=== PATIENT | male | born 1955 | race Caucasian/White ===

== ENCOUNTER 2018-03-27 10:33 | Inpatient (IN) | payer OTHER, SELFPAY ==
[2018-03-27] VITALS (60 sets, daily range): BP systolic 77–120; BP diastolic 43–74; PULSE 61–98; RESP 12–25; TEMP 36.5–37.1; O2SAT 90–96
--- NOTE | 2018-03-27 10:46 | ED.FU ---
- Continuation of Care Continuation of Care Plan: I saw the ekg, shows sinus rhythm, normal axis and intervals, no acute ischemic changes compared to old ekg
--- NOTE | 2018-03-27 11:05 | ED.GENADUL ---
Medical Decision Making When compared to previous EKG there are: no significant change (EKG reviewed by Dr. Menard. Normal sinus rhythm with a rate of 80. Refer to his note. He did review previous EKG and did not note acute abnormality to suggest ischemia.) - Radiology Data Radiology results: report reviewed - Medical Decision Making Patient presents today with chief complaint of shortness of breath. He is concerned this may be cardiac etiology. Patient reports he has been feeling poorly for the past 2 years but over the past month he has not been able unable to get out of bed secondary to shortness of breath, dizziness. Positive orthostatics and hypoxia while at his primary care office today. Family history of leukemia and colon cancer. Patient has had regular colonoscopy, reports most recent was in the past few years at [facility]. EKG was without remarkable findings. Patient's oxygen is 91%. Is not tachycardic. Slightly hypotensive. No work of breathing. Lungs are clear on exam. Heart sounds. Abdomen soft nontender. Is unable to obtain enough stool sample to perform guaiac testing. Primary care had ordered laboratory workup which patient did proceed with prior to being evaluated in the emergency department. This is significant for leukocytosis of 17.8, hemoglobin of 11.1 down from 15.6, hematocrit of 35.2. Platelets were 602 this is up from 316. INR has not been checked in over a month, last checked was 02/13/2018 at which time was 2.5. Had an additional evaluation including d-dimer, troponin, magnesium, TSH. And concern for possible pulmonary embolism given his presenting symptoms. We will also evaluate for possible cardiac etiology. His weight loss and fatigue is also concerning for possible cancerous etiology. Will obtain a CTA to evaluate for possible PE or lung pathology. Discussed plan with the patient and he voiced understanding and is agreement with the plan. Patient's INR is 4.1. PTT 48.1. Troponin <0.02. D-dimer 1276. Patient going for CTA chest. Stool sample was collected, heme negative per nursing staff. Liquid pale stool, foul smelling. Given 2-3 weeks of diarrhea, appearance and leukocytosis, will send this for testing. Spoke with radiologist regarding chest CT. She advised that the CT was significant for bilateral upper lobe infiltrates as well as infiltrate to the right lower lobe. Reported this is consistent with pneumonia versus inflammatory process. Also noted fibrotic changes and emphysema. I did discuss my concern for possible cancerous etiology but she did not see any evidence of this at this point, however she did report that there may be something in the area that is infiltrated. This would need to be reassessed once infiltrates of cleared. Discussed findings with the patient and his . Patient's history and appearance are concerning at this point. Thus far, the patient has leukocytosis, no anemia, high platelets, positive d-dimer, negative troponin, findings suggestive of pneumonia. Patient has lost 20 pounds in the past month. Is short of breath and hypoxic at 90-91%. Placed him on 1 L of O2 via nasal cannula. Will consult with hospitalist regarding admission. Patient will be given IV ceftriaxone and azithromycin for pneumonia. Prior to beginning IV antibiotics with cultures were obtained. Consulted with Dr. Rivers regarding admission. He agrees and has replaced holding orders. Discussed this plan with the patient who agrees to admission for continued treatment and evaluation. History of Present Illness - General Chief complaint: GenMedical Stated complaint: PER DR SOL ? HEART ATTACK Time Seen by Provider: 03/27/18 10:39 Source: patient, family, RN notes reviewed Mode of arrival: ambulatory Limitations: no limitations - History of Present Illness Initial comments: Patient 63-year-old male presenting today with chief complaint of shortness of breath. He is accompanied by his . Patient reports that his symptoms have progressively been increasing over the past month. He does report that he has been feeling unwell for the past 2 years with a shortness of breath and fatigue for the past month. His reports that he has been remaining in bed for the past month secondary to shortness of breath and dizziness when standing. States that he has been immensely fatigued. He and his report that he is typically active for only 2 hours per day secondary to this fatigue. States that he has had a 20 pound weight loss over the past month. Has had a diminished appetite. Has intermittent, sharp discomfort in the lateral aspect of his chest with movement. Is denying any chest discomfort or chest tightness at this point. Has been feeling short of breath. Patient has history of atrial fibrillation, Oviedo's esophagus, migraines, colitis, hypertension. Patiennt is anticoagulated on Warfarin. Surgical history pertinent for cholecystectomy and cardiac ablation. Patient was seen by his hydrographical technical officer on 03/19/2018 at which time he was discussing this with them. Diagnosed with paroxysmal atrial fibrillation. They question of his shortness of breath may have been related to his A. fib. Patient more Holter monitor was initial interpretation significant for atrial fib, flutter over 64.5% of total monitoring time. Occasional PVCs. No ventricular tachycardia. Patient was seen by his primary care physician this morning who noted him to be hypoxic in the high 80s and vital signs significant for orthostatic hypotension. - Related Data Diphenhydramine HCl [Benadryl] 50 mg PO HS tab-cap 03/01/13 SUMAtriptan [Imitrex] 50 mg PO PRN 03/01/13 Lisinopril 10 mg PO QAM 03/26/15 Sertraline [Zoloft] 150 mg PO QAM 03/26/15 Dronedarone [Multaq] 400 mg PO BID 05/25/15 Metoprolol Succinate 50 mg PO DAILY tab-cap 03/19/18 Pantoprazole Sodium 40 mg PO DAILY tab-cap 03/19/18 Warfarin Sodium 5 mg PO DAILY tab-cap 03/19/18 Phytonadione [Mephyton] 5 mg PO PRN PRN 03/27/18 Allergies Allergy/AdvReac Type Severity Reaction Status Date / Time No Known Allergies Allergy Unverified 03/27/18 11:21 Review of Systems Constitutional: see HPI, malaise, weakness Eyes: denies: vision change Respiratory: see HPI, shortness of breath, SOB with excertion, other (Denies any hematemesis). denies: cough, orthopnea Cardiovascular: dyspnea on exertion, syncope (One episode of syncope yesterday). denies: chest pain, palpitations, edema Endocrine: unexplained weight loss Gastrointestinal: diarrhea (Reports that this is typical and associates with his colitis). denies: abdominal pain, nausea, vomiting, melena Genitourinary: denies: urgency (Denies any change in urinary habits) Musculoskeletal: denies: back pain, joint swelling Skin: denies: rash, lesions Neurological: weakness. denies: headache, numbness, paresthesias, confusion, abnormal gait Past Medical History - Past Medical History Medical history: AFIB, GERD Diverticulitis, migraine headache, colitis, Oviedo's esophagus. Surgical history: cholecystectomy, other (Cardiac ablation, finger surgery.) Family history: cancer, diabetes, hypertension - Social History Alcohol use: none Drug use: none Living Situation: lives with family General Exam - General Limitations: no limitations General appearance: alert, in no apparent distress - Head Head exam: Present: atraumatic - Eye Eye exam: Present: normal apperance - ENT ENT exam: Present: normal exam, normal orophraynx - Respiratory Respiratory exam: Present: normal lung sounds bilaterally. Absent: respiratory distress, chest wall tenderness - Cardiovascular Cardiovascular Exam: Present: regular rate, normal rhythm, normal heart sounds - GI/Abdominal GI/Abdominal exam: Present: soft, normal bowel sounds. Absent: distended, tenderness, guarding, rebound - Rectal Rectal exam: Present: normal inspection, normal rectal tone, normal prostate, other (Was unable to collect enough stool to be able to perform heme test,if he has bowel movement here we will test from the). Absent: fecal impaction, hemorrhoids, tenderness - Extremities Exam Extremities exam: Present: normal inspection. Absent: pedal edema, calf tenderness - Back Exam Back exam: Present: normal inspection - Neurological Exam Neurological exam: Present: alert, normal gait - Psychiatric Psychiatric exam: Present: normal affect, depressed - Skin Skin exam: Present: warm, dry, normal color Course Vital Signs - 24 hr 03/27/18 03/27/18 10:46 10:53 Temperature 36.9 C Pulse 79 Respiratory 17 17 Rate Blood Pressure 103/60
[2018-03-27] MEDS: Normal Saline 1,000 ML 1000 ML IV (11:21)
[2018-03-27 11:35] LABS: Prothrombin Time 38.1 sec (9.3-10.8)
[2018-03-27 11:37] LABS: PTT Activated 48.1 sec (21.0-31.4)
[2018-03-27 11:38] LABS: ALT 16 U/L (16-63); AST 14 U/L (15-37); Albumin 2.9 g/dL (3.4-5.0); Alkaline Phosphatase 95 U/L (46-116); Bilirubin, Direct 0.18 mg/dL (0.00-0.20); Bilirubin, Total 0.65 mg/dL (0.2-1.0); Magnesium 1.8 mg/dL (1.8-2.4); Total Protein 8.6 g/dL (6.4-8.2)
[2018-03-27 11:41] LABS: INR 4.1 (1.0-3.5)
[2018-03-27 11:44] LABS: Troponin I < 0.02 ng/mL (0.00-0.06)
[2018-03-27 11:52] LABS: D-Dimer 1276 ng/mlFEU (<500)
--- NOTE | 2018-03-27 12:10 | DI.RPTCT_ITS ---
SYMPTOMS/DIAGNOSIS: SHORTNESS OF BREATH, HYPOXIA, CHEST DISCOMFORT CHEST CT FOR PULMONARY EMBOLISM: The pulmonary arteries are well opacified with IV contrast. No pulmonary emboli are identified. There are underlying emphysematous changes in the upper lobes and fibrotic changes in the lower lobes. There are areas of increased air space density seen in both upper lobes and in the right lower lobe superior segment as well as right lung base. No pleural or pericardial effusions are seen. There is no evidence of pulmonary edema. The heart size is normal. There is no evidence of aortic dissection. There is no gross evidence of a mass. There are mildly enlarged bilateral hilar as well as subcarinal lymph nodes, likely reactive. The visualized portions of the upper abdominal organs are unremarkable. IMPRESSION: No evidence of pulmonary emboli. Bilateral upper lobe and right lower lobe infiltrates are seen.
[2018-03-27] MEDS: Lactated Ringers 1,000 ML 150 ML IV ×2 (13:32→21:11)
[2018-03-27 13:54] LABS: Lactate-non-spesis 0.7 mmol/L (0.6-1.4)
[2018-03-27] MEDS: AZITHROMYCIN 500 MG in Normal Saline 250 ML 250 MG IVPB (14:37)
[2018-03-27] MEDS: DOXYCYCLINE 100 MG in Normal Saline 100 ML IVPB (17:30)
[2018-03-27] MEDS: diphenhydrAMINE 25 MG CAP 50 MG PO (21:59)
--- NOTE | 2018-03-27 22:21 | NUR.NOTE ---
Nursing Note: Pt to MS floor at 1518. A&Ox3. VSS. 94% on 2L. Lungs clear, HR regular, REDDING; hearing aid in left ear. Telemetry. Steady gait noted. Pt oriented to room, call long etc. Will continue to monitor.
[2018-03-28] VITALS (7 sets, daily range): BP systolic 118–127; BP diastolic 73–79; PULSE 70–77; RESP 20; TEMP 36.8–37.4; O2SAT 88–95
[2018-03-28] MEDS: Lactated Ringers 1,000 ML 150 ML IV ×2 (03:37→13:45)
[2018-03-28] MEDS: DOXYCYCLINE 100 MG in Normal Saline 100 ML IVPB ×2 (05:29→17:46)
[2018-03-28] MEDS: Normal Saline Flush 10 ML SYR IVP (06:33)
[2018-03-28 06:55] LABS: Abs Immature Grans 0.07 k/cumm (0.0-0.09); Absolute Basophil Count 0.04 k/cumm (0.0-0.2); Absolute Eosinophil Count 0.17 k/cumm (0.0-0.7); Absolute Lymphocyte Count 1.68 k/cumm (1.2-3.4); Absolute Monocyte Count 0.88 k/cumm (0.11-0.7); Absolute Neutrophil Count 9.18 k/cumm (1.2-6.7); Basophils % 0.3; Eosinophils % 1.4; HCT 29.4 % (40.0-50.0); Immature Grans % 0.6; Mean Corp. HGB Concentration 30.6 g/dL (32.0-36.0); Mean Corpuscular Hemoglobin 23.6 pg (27.0-33.0); Mean Corpuscular Volume 77.2 fL (80-95); Mean Platelet Volume 10.1 fL (8.0-11.0); Monocytes % 7.3; Neutrophils % 76.4; Platelet Count 503 x1000/uL (130-400); RBC 3.81 m/cumm (4.50-6.00); RBC Distribution Width 17.8 % (11.8-14.1); White Blood Cell Count 12.01 k/cumm (4.4-10.8)
[2018-03-28 07:12] LABS: INR 3.6 (1.0-3.5); Prothrombin Time 33.9 sec (9.3-10.8)
[2018-03-28 07:21] LABS: Anion Gap 6.8 mmol/L (3-11); BUN 13 mg/dL (7-18); CO2 26.2 mmol/L (21.0-32.0); CREATININE 1.08 mg/dL (0.70-1.30); Chloride 105 mmol/L (98-107); Glucose 92 mg/dL (70-100); Potassium 3.4 mmol/L (3.5-5.1); Sodium 138 mmol/L (136-145)
[2018-03-28 07:23] LABS: C-Reactive Protein 9.86 mg/dL (0.0-0.3)
[2018-03-28] MEDS: Sertraline 50 MG TAB 150 MG PO (08:01)
[2018-03-28] MEDS: Pantoprazole 40 MG TABCR PO (08:02)
[2018-03-28 08:12] LABS: ESR 70 MM/HR (1-20)
[2018-03-28 08:21] LABS: Iron 12 ug/dL (50-175); Total Iron Binding Capacity 254 ug/dL (250-450); Transferrin Sat 5 % (20-55)
[2018-03-28 08:47] LABS: Ferritin 20 ng/mL (8-388); Folate 7.6 ng/mL (8.6-20.0); TSH 1.78 uIU/mL (0.358-3.74); Vitamin B12 387 pg/mL (193-986)
[2018-03-28] MEDS: Omnipaque 350 MG/ML 100 ML BTL IJ (08:57)
[2018-03-28] MEDS: Breeza Beverage 473 ML BTL PO ×2 (08:58→08:59)
[2018-03-28] MEDS: Omnipaque 350 MG/ML 50 ML BTL PO (08:58)
--- NOTE | 2018-03-28 09:00 | DI.RPTCT_ITS ---
SYMPTOM/DIAGNOSIS: UNEXPLAINED WT LOSS, ANEMIA, FAMILY H/O COLON CA, DIARRHEA, COLITIS, GERD, BARRETTS ABDOMEN AND PELVIC CT: CT examination of the abdomen and pelvis was performed with a bolus infusion of 100 cc's of Omnipaque 350. There are areas of patchy pulmonary consolidation in the lung bases bilaterally as noted on yesterday's chest CT. The liver and spleen are unremarkable in appearance. Gallbladder has been surgically removed. Pancreas appears normal. No biliary dilatation is seen. Adrenals and kidneys are unremarkable in appearance except for an apparent left mid pole renal cyst. No evidence of urinary tract calcification or obstruction. Abdominal aorta is of normal diameter and no major vascular abnormality is seen.. Appendix is normal. No evidence of diverticulitis or bowel obstruction. Note is made of focal wall thickening near the rectosigmoid junction. The possibility of circumferential mass lesion would have to be raised and colonoscopy is requested for further evaluation. CONCLUSION: No evidence of acute intra-abdominal process. Question distal colon lesion as described, colonoscopy suggested to exclude carcinoma.
[2018-03-28] MEDS: Potassium Chloride 10 MEQ TABCR 40 MEQ PO ×2 (09:05→14:47)
[2018-03-28] MEDS: Magnesium Oxide 400 MG TAB PO (09:05)
--- NOTE | 2018-03-28 09:06 | IN_ITS ---
INPATIENT PHYSICAL THERAPY EVALUATION Date: 03/28/18 Referring Doctor: Luli Omalley PT Orders: Evaluate and treat due to generalized weakness, SOB, PNA, fatigue Precautions: Fall precautions PATIENT PROFILE/ADMITTING DIAGNOSIS: Patient is a 63 year old male admitted 03/27 secondary to generalized weakness, SOB, PNA and fatigue. Was complaining of dizziness and fatigue prior to admission. PMHX: AFIB, HTN, migraines, cholecystectomy Social History/Home Situation: Lives in [place] with his in multi-level home with 5 steps and railing into dwelling. Equipment owned/DME: None SUBJECTIVE: I'm not feeling dizzy this morning. Just a little fatigued still. I'm going for a CT scan later this morning. OBJECTIVE: General Observation: IV in forearm of right upper extremity and supplemental oxygen via nasal cannula 1 L. O2 sat 96% Mental Status: Alert and orientated x3. Pain: 0/10 ROM: RUE: AROM WNL LUE: AROM WNL RLE: AROM WNL LLE: AROM WNL STRENGTH: RUE: Shoulder flexion and abduction 4+/5, elbow flexion and extension 5/5, customer operations representative 5/5 LUE: Shoulder flexion and abduction 4+/5, elbow flexion and extension 5/5, customer operations representative 5/5 RLE: 5/5 throughout LLE: 5/5 throughout BED MOBILITY/TRANSFERS: Supine-sit: HOB 35 degrees SBA Sit to stand: SBA Stand to sit: SBA with verbal cues for hand placement on chair Sit to supine: HOB 30 degrees SBA GAIT: Patient ambulated with CGA and no assistive device 25 feet. 02 saturation remained at 95%. BALANCE: Static sitting: Good Dynamic Sitting: Good Static Standing: Normal (-) Romberg Dynamic Standing: Normal Mobility Limitations Standardized Measure [facility] AM -PAC 6 clicks Basic Mobility Inpatient Short Form: raw score: 22 standardized score: 5.43 CMS score: 20.91 CMS modifier: CJ INFORMED CONSENT/EDUCATION: Pt instructed in purpose of PT Consult and plan of care ASSESSMENT: Patient is a 63 year old male referred to physical therapy services with diagnosis of generalized weakness, shortness of breath and fatigue. Patient presents with the following impairment level findings: decreased standing transfers and gait secondary to complaints of fatigue and dizziness associated with his AFIB. No complaints of dizziness during IE today. Impairments are contributing to the following functional limitations: AMPAC score CMS score 20.91%. Patient is assessed as a Low 76302 __x__ Moderate 68774 ____ high 05556 complexity based on the following: History: as per PMH Examination: as listed above in assessment Presentation: stable and uncomplicated Decision Making: low AMPAC score CMS 20.91% GOALS Goals x1 week 1. Supine-sit: independent 2. Sit-Supine: independent 3. Sit-Stand: independent 4. Stand-sit: independent 5. Bed-chair: independent 6. Chair-bed: independent 7. Gait: 150 with supervision and no assistive device 8. Stairs: 5 steps up and down with railing and supervision PLAN OF CARE/TREATMENT PLAN: 1-2x/day, 7 days/ week x 1 week Plan of care has been reviewed with the DISABILITY CASE MANAGER providing the service under Physical therapy direction. Initiate physical therapy intervention for strengthening, bed mobility, transfers, gait, stairs, balance training, use of assistive device. DISCHARGE RECOMMENDATIONS Discharge to home TREATMENT TIME/MINUTES/CODES 30 minutes IE 8:00 G Codes in the area mobility of walking and moving around: current status [id number] ___CJ____projected status GP [id number]- EG . Discharge status ( if discharging) GP [id number]-
--- NOTE | 2018-03-28 09:33 | HPE_ITS ---
Reason For Admission: Pneumonia. Assessment and Plan: 1. Pneumonia: Continue IV ceftriaxone. He was initially started on azithromycin in the emergency de partment but given the fact that he is on Multaq we will change him over to doxycycline for atypical coverage. We will provide him with supplemental oxygen. Updrafts as needed. We will reassess his b lood count in the morning. 2. Atrial fibrillation: Will continue his rate control medication. Will hold his warfarin as his IN R is 4.1. Will monitor him on telemetry. 3. Anemia: He does have a new anemia. We will heme test his stools. He has had a chest CT which di d not show an occult malignancy. We will order a CT of his abdomen and pelvis for tomorrow to [facility] assess for occult malignancy. We will add an ESR to his labs. 4. Fatigue with weight loss of 20 pounds in the last month; decreased appetite, weakness. Consider d epression. Consider malignancy. Consider cardiac. Disposition: He is a full code. We will treat his pneumonia and continue to work him up. He is followed by [facility] care provider in the community that has been involved in a workup at the present time. He is also followed by Cardiology who is planning a stress test for Friday. This is on hold at this time. 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 This case was discussed with Viraj Rivers MD, who is in agreement with the above. History of Present Illness: Mr. Worthington is a 63-year-old male who presented to the emergency department today with a report of short ness of breath which has been progressive over the last month. He reports that he has noticed a stea dy decline over time and that he has been more fatigued, lightheaded, and just not had any energy for the last month. Over the last week he developed a cough producing yellow-thick sputum. He notes that he has had appr oximately 20 pound weight loss in the last month. His reports that he has not been getting out of bed. He reports that it has been a chore to just get from the bed to the recliner. He saw his primary care provider today who sent him to the emergency department for further evaluation and eri p. In the emergency department he was noted to have an elevated D-dimer at 1276. He underwent a CTA of his chest which was notable for bilateral upper lobe infiltrates as well as an infiltrate to the righ t lower lobe. He also presents with leukocytosis with a white blood cell count over 17,000. He does have a history of atrial fibrillation with cardiac ablation in 2011 at [facility]. He pr eviously was on Pradaxa but he was hospitalized in December for epistaxis and at that time he was anderson sitioned to Warfarin. He presents with an INR of 4.1 at this time. His troponin was less than 0.02. Of note, he does have a new anemia with his hemoglobin at 11.1, hematocrit 35.2. His platelet count is 602. He notes that he has had a poor appetite. He has not felt hungry. He does not endorse any pain. No dysphagia. No early satiety. He is a former smoker. He is admitted to the hospitalist se friend for IV antibiotics, supplemental oxygen. He will have nebulizer treatments available as needed . We will give him IV fluids and monitor him on telemetry. Past Medical History: 1. He has a history of paroxysmal atrial fibrillation anticoagulated on warfarin, rate controlled on Multaq. He also takes metoprolol. 2. Oviedo's esophagus. 3. Gastroesophageal reflux disease with Oviedo's esophagus. 4. History of migraines. 5. History of collagenous colitis. 6. Hypertension. 7. Hiatal hernia. Past Surgical History: 1. Cardiac ablation 2011 at [facility]. 2. Cholecystectomy. 3. Finger surgery. Allergies: No known allergies. Medications: 1. Multaq 400 mg p.o. b.i.d. 2. Benadryl 50 mg p.o. at bedtime. 3. Imitrex 50 mg p.o. p.r.n. 4. Pantoprazole 40 mg p.o. daily. 5. Metoprolol succinate 50 mg p.o. daily. 6. Lisinopril 10 mg q.a.m. 7. Warfarin sodium 5 mg p.o. daily. 8. Zoloft 150 mg p.o. q.a.m. Family History: His mother at 83 of a cerebrovascular accident. She had Alzheimer's and atrial fibrillation. H is father at age 50 of leukemia, ALL; he presented initially with pneumonia. His sister at 67. She had heart rhythm problems. She was a survivor of colon cancer in her 30s. She ultimately of a cerebrovascular accident. He has a brother with chronic obstructive pulmonary disease, atr ial fibrillation, and rheumatoid arthritis. He has 2 other siblings that do not see a doctor; one of whom has chronic obstructive pulmonary disease. Social History: He is a former smoker. He quit in 1998 after smoking for 30 years 2-1/2 packs per day. He drinks an average of 2 beers per week. He does not use any street drugs or marijuana. He is retired. 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 He lives with his . Sarabjit brown has 3 children. One son has bipolar and is medication compliant. His daughter has multiple medica l problems including chronic migraines, epilepsy, agoraphobia among other problems. Review of Systems: Constitutional: He denies fevers or chills. He does endorse night sweats, weakness. He has been si gnificantly fatigued, not getting up out of bed for the past several weeks. See History of Present I llness. HEENT: He reports that he is hard of hearing. He has no vision problems. He does have some mild na ladan congestion. He has no difficulty swallowing, no sore throat. Respiratory: He reports shortness of breath which is increased with exertion. He does have a cough which is productive of thick yellow sputum. He reports bilateral sharp pain to the lateral aspect of his chest with his cough. He does not feel wheezy. Cardiovascular: No chest pain, pressure, or palpitations. He has been experiencing lightheadedness upon standing. Gastrointestinal: He does have history of an unexplained 20 pound weight loss in the last month. He has had a poor appetite. He has not been nauseated. He has not been vomiting. He does have chroni c diarrhea. He denies any blood in his stool, black or tarry stools. Genitourinary: He denies frequency, urgency, dysuria, odor to his urine. Musculoskeletal: He denies any pain except he reports achy elbows which he relates to a history of g myrnag, playing tennis, and his age. He denies any swelling, stiffness to his joints. He denies leslie ma to his extremities. No numbness or tingling to his extremities. Skin: He denies rash or lesions. Neurological: He does have weakness. He denies headache, numbness, paresthesias, confusion, or abno rmal gait. Physical Examination: General: He appears pale. He is awake and alert in no acute distress. HEENT: Normocephalic and atraumatic. Pupils equal, round, and reactive to light. EOMs intact. Con junctivae not injected. Sclerae are anicteric. No rhinorrhea. Mucous membranes are slightly dry. Neck: Supple. No lymphadenopathy. No jugular venous distention. No thyromegaly. Respiratory: Respirations are even and unlabored. Decreased aeration throughout. Rales to the righ t base. A few scattered expiratory wheezes noted. Cardiovascular: Heart has a regular rate and rhythm at this time. No murmur appreciated. Gastrointestinal: Normoactive bowel sounds throughout. Abdomen is soft, nontender on palpation. No masses appreciated. Rectal: Exam deferred as it was performed in the emergency department. Extremities: [place], warm without clubbing, cyanosis, or edema. No tenderness or swelling of the calv es. Neurological: No focal abnormalities. Psychiatric: Pleasant, normal affect. Skin: Warm and dry without significant rashes or lesions. Laboratory Data: White blood cell count is elevated at 17.85; red blood cells 4.64, hemoglobin is 11.1, hematocrit 35. 2, platelet count is elevated at 602. Sodium is 139, potassium 3.8, chloride 102, carbon dioxide 24. 9, anion gap is 12.1, BUN is 17, creatinine 1.36, estimated GFR is 52.59, glucose is 113. Calcium is 9.1, magnesium 1.8, TSH is 1.20. D-dimer elevated at 1276. INR of 4.1. Chest CT with no evidence of pulmonary emboli. Bilateral upper lobe and right lower lobe infiltrates noted.
--- NOTE | 2018-03-28 10:06 | DI.VRAD_ITS ---
EXAM: CT Abdomen and Pelvis With Intravenous Contrast CLINICAL HISTORY: 63 years old, male; Signs and symptoms; Other: Unexplained weight loss, anemia, diarrhea; Patient HX: Family HX of colon cancer. HX of colitis, a-fib, gerd, dacosta's. TECHNIQUE: Axial computed tomography images of the abdomen and pelvis with intravenous contrast. Coronal and sagittal reformatted images were created and reviewed. CONTRAST: 100 mL of omnipaque 350 administered intravenously. COMPARISON: No relevant prior studies available. FINDINGS: Lung bases: Air space opacities in the bilateral lower lobes and right mid lung. See separate report of CT chest performed on 03/27/2018 for detailed parenchymal findings. ABDOMEN: Liver: Mild hepatic steatosis. There is no intra-or extrahepatic ductal dilatation. No focal hepatic masses.. Gallbladder and bile ducts: Cholecystectomy. There is no intra-or extrahepatic ductal dilatation. Pancreas: Unremarkable. No mass. No ductal dilation. Spleen: Unremarkable. No splenomegaly. Adrenals: Unremarkable. No mass. Kidneys and ureters: There is an 8 x 9 mm minimally complex cyst in the midpole of the left kidney. No hydronephrosis or perinephric fluid collections. Stomach and bowel: There is circumferential wall thickening involving the distal sigmoid colon or rectosigmoid colon with caliber change at the level of the rectosigmoid colon and increased irregular soft tissue thickening image 87 series 9. There is no bowel obstruction. PELVIS: Appendix: No findings to suggest acute appendicitis. Bladder: Unremarkable. No mass. Reproductive: Calcifications in the prostate gland. Pelvis the pelvis.. ABDOMEN and PELVIS: Intraperitoneal space: No free air. No significant fluid collection. Bones/joints: No acute fracture. No dislocation. Soft tissues: Unremarkable. Vasculature: No abdominal aortic aneurysm. Lymph nodes: No enlarged lymph nodes. IMPRESSION: There is circumferential wall thickening from the distal sigmoid colon to the rectosigmoid colon with findings most pronounced distally with focal annular thickening and caliber change at the rectosigmoid colon. Direct visualization is advised to exclude neoplasm. Dictated and Authenticated by: Hanane Bocanegra MD. Ordering:PRIMO NOLAND MD
--- NOTE | 2018-03-28 13:03 | PHARADMIT ---
Addendum entered by Marcos aSldana III 04/03/18 15:05: Pharmacy Note Subjective MD notes patient has improved since Doxycycline stopped and Azthromycin started Objective VS-OK Lytes-OK Afebrile, WBC-11.00 INR-2.2 SCr-1.22 Assessment IV ABX changed to PO Azithromycin and Cefpodoxime. Plan Warfarin continues. Original Note: Addendum entered by Sherita Blake 04/02/18 15:10: Pharmacy Note Subjective pneumonia day 7 of IV antibiotics, using O2 here but doesn't use at home, RT trialing lowering to 2L O2 Objective vs ok, tele shows sinus rhythm, INR 1.6, Scr up to 1.27, WBC down to 12.98 Assessment extra dose of warfarin, Azithromycin, ceftriaxone continue, furosemide stopped, Plan watching renal function Original Note: Addendum entered by Sherita Blake 04/01/18 16:47: Pharmacy Note Subjective pneumonia day 6 of IV antibiotics Objective vs ok, INR 1.6 Assessment Azithromycin, ceftriaxone continue, po diltiazem restarted with intentions to wean, will remain off dronedarone, extra dose of warfarin Plan watching renal function, Original Note: Addendum entered by Marcos Sadlana III 03/30/18 17:22: Pharmacy Note Subjective Reverted back into A-fib, Diltiazem started, Dronedarone dc'd. Had 2 seconds pauses. Objective vs-ok inr-1.7 K+3.4 Assessment Warfarin restarted. IV ABX continue Plan See MD note Original Note: Addendum entered by Marcos Saldana III 03/29/18 13:22: Pharmacy Note Subjective On top of Pneumonia MD suspects there may be an underlining Colitis issue, and will consult with surgeon. (recent 20 Lb weight loss/. Eating fine now Objective VS-OK K+4.3 SCr-0.92 INR-2.5 Assessment Warfarin has not been re-started. Doxycyline & Rocephin continue Plan No new MD note charted yet Original Note: Admission Pharmacy Clinical Review PNEUMONIA Code Status Full Code Current Weight 97 kg Renally Cleared and Narrow Therapeutic Index Meds CrCl~93ml/min QTc Value / Action Taken QTC 459 (Zoloft, Multaq) BP Control, Fever BP 118/73 Afebrile Electrolytes reviewed K+ 3.4 (being replaced) Mag 1.8 DVT Prophylaxis Warfarin not ordered until INR comes down (Afib) Opiate Usage / Scheduled Bowel Regimen Ordered Plt/SCr for Heparin / Enoxaparin Plt 503 SCr 1.08 INR for Warfarin INR 3.6 H/H stable, WBC/Bands H/H 9.0/29.4 WBC 12.01 (oral steroids) Antibiotic appropriateness Ceftriaxone/Doxycycline IV for atypical coverage...due to Intxn of Azith and Multaq, rec'd Azith IV x1 in ED Cultures and Sensitivities Blood pending Stool C.Diff negative Stool Lactoferrin positive, stool blood negative Surgical ABX d/c within 24 hr DM control / Insulin Dosing Heart Failure (Check EF%) (ALYSA's, B-Block, Diuretics) Dronedarone, Lisinopril-ON HOLD, Toprol-OH HOLD, Metoprolol IR just ordered IV to PO Switch Doxycycline IV to PO? Home Meds Reviewed Home Meds Not Ordered Comments I/O positive, weight up Anemia....ordered Folic Acid and Ferrous Sulfate family Hx of colon cancer, wt loss, weakness Abdomen/Pelvic CT-today, results not reported PT evaluation, ?Stress test/Echo Friday
[2018-03-28] MEDS: Normal Saline 500 ML IV (13:45)
[2018-03-28] MEDS: Folic Acid 1 MG TAB PO (13:46)
--- NOTE | 2018-03-28 16:55 | PDOC.CMIN ---
Care Management Initial Assess REASON FOR HOSPITALIZATION:: Pneumonia PAST MEDICAL HISTORY/PAST SURGICAL HISTORY:: Medical: A-Fib, Oviedo's esophagus, GERD, Migraines, collagenous colitis, hypertension, hiatal hernia. Surgical: Cardiac ablation, cholocystectomy, finger surgery PREVIOUS FUNCTIONAL STATUS/SOCIAL/FAMILY SUPPORTS:: Independent. Lives with his , Agata, at their home in [place]. They have 3 adult children. CURRENT FUNCTIONAL STATUS:: Ambulating without assistance. Has had a room full of visitors all day so has not gotten much rest. ADVANCE DIRECTIVES:: None on file Has patient been provided with information about the portal?: No Did the patient sign up for the portal?: No CODE STATUS:: Full Code INSURANCE COVERAGE / FINANCIAL ISSUES:: [facility] CURRENT HOME/COMMUNITY SERVICES/EQUIPMENT:: None PRIMARY CARE PHYSICIAN:: [facility]: Radha Tobar MD POTENTIAL DISCHARGE NEEDS:: None identified PATIENT/FAMILY EDUCATION NEEDS:: Discharge instructions ANTICIPATED BARRIERS TO DISCHARGE:: None TRANSPORTATION:: , Agata, will transport PLAN:: Return home when medically cleared for discharge. Agata will transport by car. No services needed.
--- NOTE | 2018-03-28 17:09 | INITIAL_ITS ---
Care Management Initial Assess REASON FOR HOSPITALIZATION:: Pneumonia PAST MEDICAL HISTORY/PAST SURGICAL HISTORY:: Medical: A-Fib, Oviedo's esophagus , GERD, Migraines, collagenous colitis, hypertension, hiatal hernia. Surgical: Cardiac ablation, cholocystectomy, finger surgery PREVIOUS FUNCTIONAL STATUS/SOCIAL/FAMILY SUPPORTS:: Independent. Lives with his , Agata, at their home in [place]. They have 3 adult children. CURRENT FUNCTIONAL STATUS:: Ambulating without assistance. Has had a room full of visitors all day so has not gotten much rest. ADVANCE DIRECTIVES:: None on file Has patient been provided with information about the portal?: No Did the patient sign up for the portal?: No CODE STATUS:: Full Code INSURANCE COVERAGE / FINANCIAL ISSUES:: [facility] CURRENT HOME/COMMUNITY SERVICES/EQUIPMENT:: None PRIMARY CARE PHYSICIAN:: [facility]: Radha Tobar MD POTENTIAL DISCHARGE NEEDS:: None identified PATIENT/FAMILY EDUCATION NEEDS:: Discharge instructions ANTICIPATED BARRIERS TO DISCHARGE:: None TRANSPORTATION:: , Agata, will transport PLAN:: Return home when medically cleared for discharge. Agata will transport by car. No services needed.
[2018-03-28] MEDS: Ferrous Sulfate 325 MG TAB PO (19:50)
[2018-03-28] MEDS: Metoprolol 25 MG TAB PO (19:50)
[2018-03-28] MEDS: diphenhydrAMINE 25 MG CAP 50 MG PO (21:57)
[2018-03-29] VITALS (15 sets, daily range): BP systolic 112–131; BP diastolic 71–78; PULSE 61–141; RESP 1–20; TEMP 36.7–37.6; O2SAT 84–95
[2018-03-29] MEDS: Lactated Ringers 1,000 ML 75 ML IV (04:13)
[2018-03-29] MEDS: DOXYCYCLINE 100 MG in Normal Saline 100 ML IVPB ×2 (06:04→17:39)
[2018-03-29] MEDS: Normal Saline Flush 10 ML SYR IVP ×3 (06:05→17:39)
[2018-03-29 07:15] LABS: INR 2.5 (1.0-3.5); Prothrombin Time 23.2 sec (9.3-10.8)
[2018-03-29 08:03] LABS: Abs Immature Grans 0.07 k/cumm (0.0-0.09); Absolute Basophil Count 0.04 k/cumm (0.0-0.2); Absolute Lymphocyte Count 1.33 k/cumm (1.2-3.4); Basophils % 0.3; Eosinophils % 1.6; HCT 29.3 % (40.0-50.0); HGB 8.9 g/dL (13.5-17.5); Immature Grans % 0.6; Lymphocytes % 10.7; Mean Corp. HGB Concentration 30.4 g/dL (32.0-36.0); Mean Corpuscular Hemoglobin 23.6 pg (27.0-33.0); Mean Corpuscular Volume 77.7 fL (80-95); Monocytes % 7.9; Neutrophils % 78.9; Platelet Count 485 x1000/uL (130-400); RBC 3.77 m/cumm (4.50-6.00); RBC Distribution Width 17.9 % (11.8-14.1); White Blood Cell Count 12.47 k/cumm (4.4-10.8)
[2018-03-29 08:04] LABS: Absolute Monocyte Count 0.99 k/cumm (0.11-0.7); Absolute Neutrophil Count 9.84 k/cumm (1.2-6.7)
[2018-03-29 08:07] LABS: Anion Gap 5.9 mmol/L (3-11); BUN 10 mg/dL (7-18); CO2 27.1 mmol/L (21.0-32.0); CREATININE 0.92 mg/dL (0.70-1.30); Calcium 8.1 mg/dL (8.5-10.1); Chloride 108 mmol/L (98-107); Glucose 95 mg/dL (70-100); Potassium 4.3 mmol/L (3.5-5.1); Sodium 141 mmol/L (136-145)
[2018-03-29] MEDS: Ferrous Sulfate 325 MG TAB PO ×2 (08:21→20:01)
[2018-03-29] MEDS: Folic Acid 1 MG TAB PO (08:22)
[2018-03-29] MEDS: Pantoprazole 40 MG TABCR PO (08:22)
[2018-03-29] MEDS: Sertraline 50 MG TAB 150 MG PO (08:22)
[2018-03-29] MEDS: Metoprolol 25 MG TAB PO ×2 (08:22→20:01)
[2018-03-29] MEDS: predniSONE 20 MG TAB 40 MG PO (08:22)
[2018-03-29] MEDS: Albuterol/Ipratropium 3 ML UPD VIAL UPD (09:09)
--- NOTE | 2018-03-29 11:04 | INPTTR_ITS ---
PHYSICAL THERAPY PROGRESS NOTE Date: 03/29/18 PRECAUTIONS: Fall SUBJECTIVE: Neil states that he feels good, but his O2 sats were low this morning. He is agreeable to participating in PT. OBJECTIVE PAIN: No c/o pain BED MOBILITY/TRANSFERS Supine-sit: I Sit-supine: I Sit-stand: S Stand-sit: S GAIT Assistive Device No AD Weightbearing Full Assist: SBA Distance: 120' Deviation 2L O2 via NC, SOB, c/o shakiness VITALS: Elevated HR, per nsg 140 bpm with ambulation; 84-91% on 2L O2 via NC THEREX: Held due to vital signs ASSESSMENT: Patient would benefit from continued gait training for improved endurance. PLAN: Continue with PT's POC TREATMENT CODES/TIME: 25 minutes; TAx2
[2018-03-29] MEDS: Acetaminophen 325 MG TAB PO (14:05)
--- NOTE | 2018-03-29 16:39 | PGE_ITS ---
DATE OF SERVICE: March 28, 2018 ASSESSMENT AND PLAN: #1. Weakness. Patient with constellation of symptoms that include significant weakness, 20-pound we ight loss, and dyspnea, all ongoing over the last one to two months. Also with evidence of pneumonia as potential etiology. However, Mr. Worthington also has evidence of a significant and new appearing anemi a as potential etiology as well. Will continue workup of anemia and treatment of pneumonia as detailed below. Physical Therapy consul t has been placed as well. #2. Pneumonia. Currently on a regimen that includes IV ceftriaxone and doxycycline, currently day # 2. Fluoroquinolone therapy and macrolide therapy were averted secondary to patient's chronic antiarr hythmic use with Multaq. Continue supplemental O2 and DuoNebs as needed. Overall appears to be impr oving. #3. Anemia. Significant anemia of uncertain etiology. TSH and B12 appear to be normal, but folic a kaden is low. The patient's anemia appears to be microcytic, with appearance of low iron and ferritin, but a low normal TIBC. Abnormal CT of the abdomen and pelvis seems to indicate potential pathology in the distal colon, and given the significant anemia and chronic anticoagulation concern obviously for neoplasm. However, re view of Mr. Worthington's records indicate a colonoscopy in 2012, with some polyp biopsies with pathology no t available at this time. Questioning of the patient also reveals that he had a repeat colonoscopy p erformed in the fall of this past year, 2017, at [facility], verbally reporte d to him as being normal. Currently in the process of obtaining records. Of note, the patient's s tool is also negative for any occult blood. Plan will be to stabilize Mr. Worthington from a breathing walter dpoint, and then consider a colonoscopy for direct visualization with potential biopsies of the area versus discharge with close outpatient follow-up and repeat colonoscopy. For now will also continue patient on PPI therapy, and initiate both folic acid and iron supplementation. #4. Atrial fibrillation. Continue antiarrhythmic therapy, and restart beta brigitte with strict hold parameters for hypertension and bradycardia. Currently Coumadin is on hold with daily monitoring of INR, elevated but improving at 3.6 today. Continue monitoring on telemetry as well, currently with first-degree AV block with heart rate in the 60s to 70s. #5. Hypertension. Patient with initial presentation with hypotension, in the setting of illness and likely volume depletion. Continue to hold ALYSA inhibitor, beta brigitte reinitiated as above. #6. Prophylaxis. Continue to monitor INR, currently supratherapeutic with Coumadin on hold. Contin ue PPI therapy. #7. Code status - FULL CODE. Approximately 40 minutes were spent in coordination of today's care. SUBJECTIVE: Yaent[age]ghqq[age]pe[age]z-old man admitted on the 27 of March with complaint of shortness of dennys ath, fatigue, and a 20-pound weight loss over the last month. Mr. Worthington has reportedly had dyspnea th at has been progressive over the last month, along with weight loss during that same period of time. He was found to have significant anemia at the time of admission, which is a new finding for him. Workup has included a negative CTA, but with noted bilateral upper lobe and right lower lobe infiltra te. He also presented initially with a significant leukocytosis and a white count of 17,000. He was started on antibiotic therapy and today reports some improvement in his symptoms, as well as improve d oral intake and some return of his appetite. Further workup has also revealed evidence of potentia l iron-deficiency in patient on chronic anticoagulation, as well as folic acid deficiency. CT obtain ed of the abdomen and pelvis shows a potential abnormality in the rectosigmoid area. In review of Mr Sammy Worthington's records, it appears that he had a colonoscopy screening in 2012, and patient verbally report s a repeat colonoscopy in the fall of 2016 that was reported to him as essentially negative. Today t he patient feels overall improved. No overnight events reported. PHYSICAL EXAM: General: The patient appears quite comfortable sitting in bed, no acute distress noted. Vitals: Temperature 36.8 and afebrile. Blood pressure 118/73 and improved from initial values in th e 90-100 range. Heart rate 74. Pulse oximetry 95% on 1 liter supplemental O2 by nasal cannula. Neck: Supple. CV: Regular at time of exam, non-tachycardic. No overt rubs, murmurs, or gallops appreciated. Pulm: Essentially clear with some mild right basilar crackles only. Abdomen: Bowel sounds present, soft, nondistended, nontender. Vascular: Mild bilateral lower extremity edema noted. LABS: Sodium 138, potassium 3.4, chloride 105, bicarb 26, BUN 13, creatinine 1.08. CBC with improved white blood count to 12, hemoglobin low at 9, platelet count mildly elevated at 503 ,000 down from an initial value of 602,000. TSH rechecked and normal. Iron low. Ferritin 20. TIBC low normal at 254. Folic acid low at 7.6. B12 normal at 387. Blood cultures are still pending at this time. C. difficile screen negative. Fecal leukocytes positive. Fecal occult blood testing negative. STUDIES: #1. CT of the chest dated 03/27/18: No evidence of PE. Bilateral upper lobe and right lower lobe in filtrate seen. #2. CT abdomen and pelvis: Circumferential wall thickening from distal sigmoid colon to the rectosi gmoid colon with findings most pronounced distally, with focal annular thickening and caliber change at the rectosigmoid colon. Direct visualization is advised to exclude neoplasm.
--- NOTE | 2018-03-29 17:29 | PGE_ITS ---
DATE: MARCH 29, 2018 ASSESSMENT/PLAN: 1. Weakness and weight loss. Patient with constellation of symptoms that include a significant weakness, 20 pound weight loss and dyspnea all ongoing over the last 1 to 2 months, also with evidence of pneumonia as potential etiology. However Mr. Worthington also has evidence of significant new appearing anemia as potential etiology as well. Treatment and work-up as outlined below. 2. Pneumonia Currently on regimen that includes IV Ceftriaxone and Doxycycline, currently day #3. Fluoroquinolone and Macrolide therapy were averted secondary to the patient's chronic antiarrhythmic use with Multaq. Continue supplemental O2 and DuoNebs as needed. Overall appears to be improving. Will continue to wean steroid therapy. 3. Anemia Significant anemia of uncertain etiology. TSH and B-12 appear to be normal, albeit with low normal B-12 level, but folic acid is low. The patient's anemia is also microcytic with the appearance of low iron and ferritin but a low normal TIBC. Abnormal CT of the abdomen and pelvis as indicated previously, with potential pathology in the distal colon. However given the patient's last colonoscopy occurring approximately 6 months ago, doubt neoplasm as etiology. As it is the weekend, official request for colonoscopy was unsuccessful. Will check results from [facility] tomorrow, and when the patient's symptoms of atrial fibrillation and hypoxia are both improved, plan on a surgical consultation regarding a potential flex/sig or colonoscopy for further evaluation of this abnormality. For now continue proton pump inhibitor therapy , monitor CBC, and continue recently initiated folic acid and iron supplementation. 4. Atrial fibrillation The patient has a history of ablation in the past and has been maintained on antiarrhythmic therapy as well as beta brigitte therapy. Currently lapsed back into atrial fibrillation from a prior sinus with first degree AV block, this is despite continuation of his antiarrhythmic therapy and reinitiation of beta brigitte therapy. Atrial fibrillation with rapid ventricular response is in the setting of acute illness and hypoxia. Will continue Multaq and Metoprolol and initiate low dose short acting oral Cardizem with IV Lopressor on a p.r.n. basis. If this is not successful consider Cardizem drip and an official cardiology consultation as well. Coumadin continues to be on hold with daily INR monitoring. Current INR is therapeutic at 2.5 down from a value of 3.6 yesterday but the patient remains on antibiotic therapy 5. Hypertension Blood pressure currently reasonable. Continue to hold ALYSA inhibitor with beta brigitte reinitiated yesterday. Cardizem started today for rate control. 6. Prophylaxis Continue to monitor INR, currently therapeutic with Coumadin on-hold, continue proton pump inhibitor therapy. 7. Code Status Full code Approximately 45 minutes were spent in coordination of today's care. SUBJECTIVE: 63 year-old man admitted on the 27 of March with complaint of shortness of breath, fatigue and a 20 pound weight loss over the last month. Mr. Worthington has reportedly had dyspnea that has been progressing over the last month along with weight loss during that same period of time. He was also noted to have a significant anemia at the time of admission which is a new finding for him. Work-up included a CT angiogram that was negative for pulmonary embolic but with noted bilateral upper lobe and right lower lobe infiltrates. He also had a significant leukocytosis at the time of admission, and required oxygen therapy. However further work-up for the weight loss included a CT scan that showed evidence of an abnormality in the rectosigmoid area, and in light of his significant anemia concern was had for potential malignancy. However review of this with the patient revealed that he has had a colonoscopy both in 2012 as well as most recently in the fall of 2016 that was reported to him as essentially negative. Today the patient continues to feel improved from a breathing standpoint, with return of his appetite. However, by the afternoon of the , he had lapsed back into atrial fibrillation with a mild but rapid ventricular response. No other overnight events were reported. The patient remains afebrile. OBJECTIVE: General: The patient appears comfortable lying in bed, no acute distress noted. Vitals: Temperature 37.5 and afebrile. Blood pressure 124/78, pulse currently 87, has high as 141 recorded following recurrence of atrial fibrillation. Pulse oximetry 92% on 4 liters of O2 by nasal cannula, 84% off supplemental oxygen. Neck: Supple. Cardiovascular: Regular at the time of examination, irregular following lapse into atrial fibrillation and tachycardic. Pulmonary: Mild right basilar crackles unchanged, clear otherwise without any significant wheezing. Abdomen: Bowel sounds are present, soft, nontender, nondistended. Vascular: Mild but continued bilateral lower extremity edema noted. LABS: Sodium 141, potassium 4.3, chloride 108, bicarb 27, BUN 10, creatinine 0.92. Microbiology with blood cultures with no growth for 48 hours. C-diff screen negative.
--- NOTE | 2018-03-29 17:49 | PDOC.CMPRO ---
Care Management Progress Note S/O: Ambulating independently. States he feels much better today. is at bedside. Many family members and friends visited again today. Worked with PT today and they recommend continued gait training for improved endurance. A: 63 yo male admitted for pneumonia. P: Remains at an Acute level of care. Will return home and no services anticipated. will transport.
[2018-03-29] MEDS: diphenhydrAMINE 25 MG CAP 50 MG PO (22:06)
[2018-03-30] VITALS (11 sets, daily range): BP systolic 100–131; BP diastolic 66–92; PULSE 64–142; RESP 18–20; TEMP 36.1–37.1; O2SAT 92–95
[2018-03-30 06:21] LABS: Abs Immature Grans 0.08 k/cumm (0.0-0.09); HCT 30.2 % (40.0-50.0); HGB 9.3 g/dL (13.5-17.5); Mean Corp. HGB Concentration 30.8 g/dL (32.0-36.0); Mean Corpuscular Hemoglobin 23.7 pg (27.0-33.0); Mean Corpuscular Volume 76.8 fL (80-95); Mean Platelet Volume 9.6 fL (8.0-11.0); RBC 3.93 m/cumm (4.50-6.00); RBC Distribution Width 17.7 % (11.8-14.1); White Blood Cell Count 18.28 k/cumm (4.4-10.8)
[2018-03-30 06:32] LABS: INR 1.7 (1.0-3.5); Prothrombin Time 15.9 sec (9.3-10.8)
[2018-03-30 06:34] LABS: Anion Gap 7.9 mmol/L (3-11); BUN 8 mg/dL (7-18); CO2 27.1 mmol/L (21.0-32.0); CREATININE 0.96 mg/dL (0.70-1.30); Calcium 8.6 mg/dL (8.5-10.1); Chloride 105 mmol/L (98-107); Glucose 103 mg/dL (70-100); Magnesium 1.8 mg/dL (1.8-2.4); Potassium 3.4 mmol/L (3.5-5.1); Sodium 140 mmol/L (136-145)
[2018-03-30] MEDS: DOXYCYCLINE 100 MG in Normal Saline 100 ML IVPB ×2 (06:57→17:39)
[2018-03-30 06:58] LABS: Absolute Eosinophil Count 0.55 k/cumm (0.0-0.7); Absolute Lymphocyte Count 2.74 k/cumm (1.2-3.4); Absolute Monocyte Count 0.73 k/cumm (0.11-0.7); Absolute Neutrophil Count 14.26 k/cumm (1.2-6.7); Atypical Lymphocytes % 3; Diff Comment Manual Differential
[2018-03-30] MEDS: Normal Saline 500 ML 30 ML IV (06:58)
[2018-03-30 06:59] LABS: Hypochromasia 3+; Platelet Count 575 x1000/uL (130-400); Polychromasia Present
[2018-03-30 07:00] LABS: Poikilocytes 2+
[2018-03-30] MEDS: Potassium Chloride 10 MEQ TABCR 40 MEQ PO (08:11)
[2018-03-30] MEDS: Sertraline 50 MG TAB 150 MG PO (08:12)
[2018-03-30] MEDS: Metoprolol 25 MG TAB PO ×2 (08:12→19:43)
[2018-03-30] MEDS: Pantoprazole 40 MG TABCR PO (08:13)
[2018-03-30] MEDS: Magnesium Oxide 400 MG TAB PO (08:13)
[2018-03-30] MEDS: predniSONE 20 MG TAB PO (08:13)
[2018-03-30] MEDS: Ferrous Sulfate 325 MG TAB PO ×2 (08:13→19:43)
[2018-03-30] MEDS: Folic Acid 1 MG TAB PO (08:13)
--- NOTE | 2018-03-30 09:40 | INDS_ITS ---
PHYSICAL THERAPY INPATIENT DISCHARGE NOTE Date:03/30/18 Dates of Service: 03/28/18-03/30/18 SUBJECTIVE: Pt states he is feeling good other than having to wear oxygen. Eager to go home when he is able. OBJECTIVE: General observation: 4liters 02 NC, telemetry BED MOBILITY/TRANSFERS: Supine-sit: independent Sit-supine: independent Sit-stand: independent Stand-sit: independent Bed-chair: independent GAIT: independent, no device 250ft. 4 liters 02 NC. Pt with no dyspnea or shortness of breath on exertion, able to carry on conversation. Instructed in pacing and energy conservation with gait training. Pt returned to room, up in recliner chair after session completed. Recommend pt use sneakers when walking with nursing. STAIRS up/down 5 steps with right railing, step over step sequence, independent BALANCE: Static sitting: normal Dynamic Sitting: normal Static Standing: Normal Dynamic Standing: Normal Mobility Limitations Standardized Measure [facility] AM -PAC 6 clicks Basic Mobility Inpatient Short Form: raw score: 24 standardized score: 6.94 CMS score: 0% CMS modifier: CH ASSESSMENT: Patient is a 63 year old male referred to physical therapy services with diagnosis of generalized weakness, shortness of breath and fatigue. Patient is independent with transfers and gait mobility with no assistive device, independent on stairs. Pt has no shortness of breath or dyspnea with exertion. Pt has met therapy goals and is ready for return to home setting when medically cleared. Recommend nursing continue to mobilize patient each shift until discharge to maintain mobility. GOALS Goals x1 week 1. Supine-sit: independent 2. Sit-Supine: independent 3. Sit-Stand: independent 4. Stand-sit: independent 5. Bed-chair: independent 6. Chair-bed: independent 7. Gait: 150 with supervision and no assistive device 8. Stairs: 5 steps up and down with railing and supervision Pt met goals # 1-8 DISCHARGE RECOMMENDATIONS Home TREATMENT TIME/MINUTES/CODES 24min TAx2 9:36 G Codes in the area mobility of walking and moving around: _projected status GP [id number] . Discharge status (if discharging) GP [id number] Lorraine Correa PT
[2018-03-30] MEDS: Normal Saline Flush 10 ML SYR IVP ×3 (09:49→17:39)
[2018-03-30] MEDS: Furosemide 40 MG/4 ML VIAL IVP (09:50)
--- NOTE | 2018-03-30 10:39 | MERGE_ITS ---
*[facility]* * Cardiology* [address] [place] [address] Date of study: 03/30/2018 Transthoracic Echocardiography M-mode, complete 2D, complete spectral Doppler, and color Doppler *STUDY CONCLUSIONS* Summary: 1. Left ventricle: The cavity size was normal. Systolic function was normal. The estimated ejection fraction was 60-65%. Diastolic parameters were normal. There was no evidence of elevated ventricular filling pressure by Doppler parameters. 2. Aortic valve: There was mild regurgitation. 3. Mitral valve: There was mild to moderate regurgitation. 4. Left atrium: The atrium was mildly dilated. 5. Right ventricle: The cavity size was normal. Wall thickness was normal. Systolic function was normal. 6. Right atrium: The atrium was mildly dilated. 7. Atrial septum: No defect or patent foramen ovale was identified. 8. Pulmonary arteries: Pulmonary systolic pressure was in the range of 25mm Hg to 35mm Hg. 9. Inferior vena cava: The vessel was patent and normal in size. The respirophasic diameter changes were in the normal range (greater than or equal to 50%), consistent with normal central venous pressure. *PATIENT PRESENTATION* Height: 188cm ((74in) ) S/D Pressure: 122 / 78 Weight: 98kg ((215.5lb) ) BSA: 2.25m^2 Test start time: 10:45 AM. Test stop time: 12:00 PM. 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 This study was interpreted by [facility]. Pertinent images and digital data are archived for permanent storage and are available for subsequent review. Comparison was made to the study of 02/26/2011. Study status: Routine. Transthoracic echocardiography. M-mode, complete 2D, complete spectral Doppler, and color Doppler. A Transthoracic Echocardiogram was performed. Scanning was performed from the parasternal, apical, subcostal, and suprasternal notch acoustic windows. Images were obtained using an [id number] cardiac ultrasound machine. Image quality was adequate. Study completion: The patient tolerated the procedure well. History: PMH: Afib. R/o chf. recurrent afib. Pneumonia. *CARDIAC ANATOMY* Left ventricle: The cavity size was normal. Systolic function was normal. The estimated ejection fraction was 60-65%. The tissue Doppler parameters were normal. Diastolic parameters were normal. There was no evidence of elevated ventricular filling pressure by Doppler parameters. Aortic valve: Trileaflet. Doppler: There was no stenosis. There was mild regurgitation. VTI ratio of LVOT to aortic valve: 0.68. Valve area (VTI): 2.2cm^2. Indexed valve area (VTI): 1cm^2/m^2. Peak velocity ratio of LVOT to aortic valve: 0.67. Valve area (Vmax): 2.2cm^2. Indexed valve area (Vmax): 1cm^2/m^2. Mean velocity ratio of LVOT to aortic valve: 0.69. Valve area (Vmean): 2.3cm^2. Indexed valve area (Vmean): 1cm^2/m^2. Mean gradient (S): 7mm Hg. Peak gradient (S): 12.7mm Hg. Aorta: Aortic root: The aortic root was normal in size. Ascending aorta: The ascending aorta was normal in size. Mitral valve: Doppler: There was no evidence for stenosis. There was mild to moderate regurgitation. Valve area by pressure half-time: 3.9cm^2. Indexed valve area by pressure half-time: 1.7cm^2/m^2. Peak gradient (D): 3.3mm Hg. Left atrium: The atrium was mildly dilated. Atrial septum: No defect or patent foramen ovale was identified. Right ventricle: The cavity size was normal. Wall thickness was normal. Systolic function was normal. Pulmonic valve: Doppler: There was no evidence for stenosis. There was mild regurgitation. Tricuspid valve: Doppler: There was mild regurgitation. Pulmonary artery: Poorly visualized. Pulmonary systolic pressure was in the range of 25mm Hg to 35mm Hg. Right atrium: The atrium was mildly dilated. Pericardium: There was no pericardial effusion. Systemic veins: Inferior vena cava: The vessel was patent and normal in size. The respirophasic diameter changes were in the normal range (greater than or equal to 50%), consistent with normal central venous pressure. Baseline ECG: Atrial fibrillation. Measurements Left ventricle Value Reference LV ID, ED, PLAX 5.3 cm 3.5 - 6.0 LV ID, ES, PLAX 3.6 cm 2.1 - 4.0 LV PW thickness, ED, PLAX 1.0 cm LV end-diastolic volume, 1-p A2C 121 ml LV ejection fraction, 1-p A2C 53 % LV end-diastolic volume, 1-p A4C 101 ml LV ejection fraction, 1-p A4C 48 % LV e', medial 0.099 m/sec LV E/e', medial 9 Ventricular septum Value Reference IVS thickness, ED, PLAX 0.9 cm LVOT Value Reference LVOT ID, A-P 2.0 cm LVOT area 3.3 cm^2 LVOT peak velocity, S 1.19 m/sec LVOT mean velocity, S 0.87 m/sec LVOT VTI, S 21.2 cm LVOT peak gradient, S 5.6 mm Hg LVOT mean gradient, S 3.4 mm Hg Stroke volume (SV), LVOT DP 69 ml Stroke index (SV/bsa), LVOT DP 31 ml/m^2 Aortic valve Value Reference Aortic valve peak velocity, S 1.8 m/sec Aortic valve mean velocity, S 1.26 m/sec Aortic valve VTI, S 31.0 cm Aortic mean gradient, S 7 mm Hg Aortic peak gradient, S 12.7 mm Hg VTI ratio, LVOT/AV 0.68 Aortic valve area, VTI 2.2 cm^2 Velocity ratio, peak, LVOT/AV 0.67 Aortic valve area, peak velocity 2.2 cm^2 Velocity ratio, mean, LVOT/AV 0.69 Aortic valve area, mean velocity 2.3 cm^2 Aortic valve area/bsa, mean velocity 1 cm^2/m^2 Aorta Value Reference Aortic root ID, ED 3.4 cm Ascending aorta ID, A-P, S 2.9 cm RVOT Value Reference RVOT VTI, S 18.3 cm Left atrium Value Reference LA ID, A-P, ES 4.8 cm LA ID/bsa, A-P 2.2 cm/m^2 <=2.2 LA area, ES, A4C (H) 26.7 cm^2 8.8 - 23.4 LA area, ES, A2C 21 cm^2 LA volume/bsa, ES, 1-p A4C 45 ml/m^2 LA volume, ES, 2-p 76 ml LA volume/bsa, ES, 2-p 34 ml/m^2 LA/aortic root ratio 1.42 Mitral valve Value Reference Mitral E-wave peak velocity 0.91 m/sec Mitral deceleration time 196 ms 150 - 230 Mitral pressure half-time 57 ms Mitral peak gradient, D 3.3 mm Hg Mitral valve area, PHT, DP 3.9 cm^2 Pulmonary veins Value Reference Pulmonary vein peak velocity, S 0.26 m/sec Pulmonary vein peak velocity, D 0.86 m/sec Pulmonary vein velocity ratio, peak, 0.3 S/D Tricuspid valve Value Reference Tricuspid regurg peak velocity 2.6 m/sec Tricuspid peak RV-RA gradient 27.9 mm Hg Right atrium Value Reference RA area, ES, A4C (H) 21.3 cm^2 8.3 - 19.5 Legend: (L) and (H) joy values outside specified reference range. I have personally reviewed the images and have reviewed and edited the reported findings. Electronically signed by Vishnu Howard MD 03/30/2018 13:24
--- NOTE | 2018-03-30 14:53 | PGE_ITS ---
PROGRESS NOTE DATE: March 30, 2018 @ 1422 hours ASSESSMENT/PLAN: 1. Weakness and weight loss. Patient with constellation of symptoms that included a significant weak ness, 20-pound weight loss, and dyspnea, all ongoing over the last 1 to 2 months. Also with evidence of pneumonia as potential etiology. However Mr. Worthington also has evidence of significant new appearing anemia as potential etiology for his fatigue as well. Treatment and workup as outlined below. 2. Pneumonia. Continue on current regimen of IV Ceftriaxone and Doxycycline, currently day #4. Fluo roquinolone and macrolide therapy contraindicated secondary to patient's use of antiarrhythmic with M ultaq. Continue supplemental O2 and DuoNebs as needed. Overall appears to be improving. Discontinu e oral steroid therapy today. 3. Anemia. Significant anemia of uncertain etiology. TSH and B12 appear to be normal, albeit with a low-normal B12 level and a low folic acid. Patient's anemia is also microcytic with the appearance of low iron and ferritin, but with a low-normal TIBC. Abnormal CT of the abdomen and pelvis as indicated previously, with potential pathology in the distal colon. However given the patient's last colonoscopy occurring approximately six months ago, doubt n eoplasm as etiology. Currently awaiting stabilization of the patient from a respiratory and a cardiovascular standpoint, w [facility] plans for a Surgical Consultation regarding a potential flexible sigmoidoscopy or colonoscopy for further evaluation of this abnormality, versus performance of the procedures electively as an outpat ient. For now continue PPI therapy and monitor CBC daily. Continue folic acid and iron supplementat ion as well. Will also officially request colonoscopy results from [facility]. 4. AFib. Patient has a history of AFib status post ablation, maintained on antiarrhythmic and beta b locker therapy. Patient lapsed back into AFib yesterday in the setting of hypoxia and acute infecti on, with initial rapid ventricular response responding to addition of very low-dose, short-acting Car dizem. Will touch base with Cardiology regarding potential for discontinuation of Multaq at this time. Cont inue rate control for now. Reinitiate Coumadin as INR is currently subtherapeutic. 5. Hypertension. Blood pressure currently reasonable. Continue to hold ALYSA inhibitor, but continue beta brigitte and recently reinitiated Cardizem. 6. Prophylaxis. Continue to monitor INR; currently slightly subtherapeutic, with Coumadin being rein itiated tonight. Continue PPI therapy. 7. Code status. FULL CODE. Approximately 40 minutes were spent on coordination of care today. ++++++++++++++++++++ SUBJECTIVE: 63-year-old man admitted the 27 of March with complaint of shortness of breath, fatigu e and a 20-pound weight loss over the last month. Mr. Worthington has reportedly had dyspnea that has been progressive over the last month, along with weight loss during the same period of time. He was noted to have a significant anemia at the time of admiss ion, which is a new finding for him. Workup included a CT angiogram that was negative for PE, but with noted bilateral upper lobe and righ t lower lobe infiltrates. He also had a significant leukocytosis at the time of admission, and requi red oxygen therapy. Further workup for weight loss also included a CT of the abdomen and pelvis, whi ch showed evidence of rectosigmoid abnormality. Review of patient's records indicate that he has had a colonoscopy both in 2012 as well as most recently in the fall of 2017 that was reported to him as essentially negative. The patient was noted to have mildly increasing level of oxygen requirement yesterday. He also had r ecurrence of his AFib. As the patient was hypotensive and dehydrated at time of admission with an in fectious process, he was fluid resuscitated, and his weight had increased from 94 to 98 kg. He was g iven a dose of IV Furosemide this morning, and an echocardiogram was ordered, which revealed a normal ejection fraction with moderate MR. Since receiving the Furosemide he reports some subtle improveme nt in his breathing symptoms overall, and his oxygen requirement has decreased. No other events were reported overnight. The patient remains afebrile. PHYSICAL EXAM: GENERAL: The patient appears quite comfortable sitting in bed; no acute distress noted. VITALS: Temperature 36.7 and afebrile, blood pressure 122/78, heart rate 71, pulse oximetry 92% on 4 liters documented, but at time of exam pulse oximeter was used and the patient's O2 was turned down to 2 liters with pulse oximetry recorded at 90-94%. NECK: Supple. CV: Irregularly irregular, non-tachycardic. PULM: Continued mild right basilar crackles and rales, otherwise clear without any significant wheez ing. ABDOMEN: Bowel sounds present; soft, nontender, nondistended. VASCULAR: Mild, continued bilateral lower extremity edema noted. LABS: Sodium, chloride, bicarbonate, BUN and creatinine are all normal, and creatinine remains unchanged at 0.96. Potassium mildly low at 3.4. Magnesium of 1.8. INR slightly subtherapeutic at 1.7. White blood count has worsened from 12.47 yesterday to 18.28 today, with a hemoglobin that's unchanged at 9 .3 and a platelet count that is elevated at 575,000. Differential with 78 neutrophils, 12 lymphocyte s, 4 monocytes. No bands. Microbiology with blood culture with no growth x 48 hours. C. diff that appears negative. Fecal leukocytes are positive. Stool culture is still pending. STUDIES: 1. Echocardiogram with an LVEF of 60-65% with normal diastolic parameters, mild AR, mild to moderate MR, mildly elevated left atrium; normal RV size and function. Pulmonary pressures 25-35.
--- NOTE | 2018-03-30 16:02 | PDOC.CMPRO ---
Care Management Progress Note S/O: Neil is lying in bed, at bedside. He remains pleasant in interaction. No change to overall plan. A: 63 year old male admitted to [facility] 03/27/18 for Pneumonia P: Neil will discharge home when ready per MD. No additional services anticipated, he will transport via private vehicle with his .
[2018-03-30] MEDS: Potassium Chloride 10 MEQ TABCR 20 MEQ PO (16:11)
--- NOTE | 2018-03-30 16:21 | CMPROGNOTE_ITS ---
Care Management Progress Note S/O: Neil is lying in bed, at bedside. He remains pleasant in interaction. No change to overall plan. A: 63 year old male admitted to [facility] 03/27/18 for Pneumonia P: Neil will discharge home when ready per MD. No additional services anticipated, he will transport via private vehicle with his .
[2018-03-30] MEDS: Warfarin 5 MG TAB PO (19:43)
[2018-03-30] MEDS: Metoprolol 12.5 MG TAB PO (21:57)
[2018-03-30] MEDS: diphenhydrAMINE 25 MG CAP 50 MG PO (21:57)
[2018-03-31] VITALS (14 sets, daily range): BP systolic 103–130; BP diastolic 69–84; PULSE 71–166; RESP 1–20; TEMP 36.5–37.6; O2SAT 90–96
[2018-03-31] MEDS: Normal Saline Flush 10 ML SYR IVP ×3 (05:56→15:42)
[2018-03-31] MEDS: DOXYCYCLINE 100 MG in Normal Saline 100 ML IVPB (05:57)
[2018-03-31 07:21] LABS: Abs Immature Grans 0.14 k/cumm (0.0-0.09); HCT 32.9 % (40.0-50.0); HGB 10.1 g/dL (13.5-17.5); Mean Corp. HGB Concentration 30.7 g/dL (32.0-36.0); Mean Corpuscular Hemoglobin 23.3 pg (27.0-33.0); RBC 4.33 m/cumm (4.50-6.00); RBC Distribution Width 18.1 % (11.8-14.1); White Blood Cell Count 17.77 k/cumm (4.4-10.8)
[2018-03-31 07:26] LABS: Anion Gap 7.2 mmol/L (3-11); BUN 16 mg/dL (7-18); CO2 28.8 mmol/L (21.0-32.0); CREATININE 1.08 mg/dL (0.70-1.30); Calcium 9.1 mg/dL (8.5-10.1); Chloride 102 mmol/L (98-107); Glucose 86 mg/dL (70-100); Magnesium 1.9 mg/dL (1.8-2.4); Potassium 3.4 mmol/L (3.5-5.1); Sodium 138 mmol/L (136-145)
[2018-03-31 07:27] LABS: INR 1.4 (1.0-3.5); Prothrombin Time 13.4 sec (9.3-10.8)
[2018-03-31 08:00] LABS: Absolute Neutrophil Count 11.37 k/cumm (1.2-6.7)
[2018-03-31 08:01] LABS: Atypical Lymphocytes % 3
[2018-03-31] MEDS: Metoprolol 25 MG TAB PO ×2 (08:02→18:44)
[2018-03-31] MEDS: Furosemide 40 MG/4 ML VIAL IVP ×2 (08:02→15:42)
[2018-03-31] MEDS: Ferrous Sulfate 325 MG TAB PO ×2 (08:03→19:20)
[2018-03-31] MEDS: Sertraline 50 MG TAB 150 MG PO (08:03)
[2018-03-31] MEDS: Pantoprazole 40 MG TABCR PO (08:03)
[2018-03-31] MEDS: Folic Acid 1 MG TAB PO (08:03)
[2018-03-31 08:04] LABS: Absolute Eosinophil Count 0.18 k/cumm (0.0-0.7); Absolute Lymphocyte Count 4.09 k/cumm (1.2-3.4); Absolute Monocyte Count 1.95 k/cumm (0.11-0.7); Diff Comment Manual Differential
[2018-03-31 08:05] LABS: Anisocytosis 1+; Hypochromasia 2+; Microcytosis 2+; Polychromasia Present
[2018-03-31 08:07] LABS: Platelet Count 603 x1000/uL (130-400); Poikilocytes 1+
[2018-03-31] MEDS: Potassium Chloride 10 MEQ TABCR 40 MEQ PO ×3 (08:25→15:42)
--- NOTE | 2018-03-31 08:45 | DI.REPORT_ITS ---
SYMPTOM/DIAGNOSIS: PNEUMONIA, PERSISTENT LEUKOCYTOSIS, WT LOSS PA AND LATERAL CHEST: Regions of infiltration are demonstrated in the right lower lobe. The remainder of the lung is clear. There is no pleural effusion. The heart is not enlarged. SUMMARY: Findings consistent with an acute pneumonitis. Follow up images to clearing is recommended.
[2018-03-31] MEDS: Magnesium Oxide 400 MG TAB PO (10:08)
--- NOTE | 2018-03-31 11:01 | PDOC.CMPRO ---
Care Management Progress Note S/O: Neil is lying in bed when CM met with him. He processed his stay at [facility] thus far and reported being very impressed with his care and providers. CM supported Neil in completing his AD. Lorraine of PT reports Neil has met his goals for PT and will be discharged; though he should continue being active and working with nursing. Neil is hopeful he will not require oxygen support upon discharge. He remains pleasant in interaction. No change to overall plan. A: 63 year old male admitted to [facility] 03/27/18 for Pneumonia P: Neil will discharge home when ready per MD. No additional services anticipated, he will transport via private vehicle with his .
--- NOTE | 2018-03-31 11:04 | CMPROGNOTE_ITS ---
Care Management Progress Note S/O: Neil is lying in bed when CM met with him. He processed his stay at [facility] thus far and reported being very impressed with his care and providers. CM supported Neil in completing his AD. Lorraine of PT reports Neil has met his goals for PT and will be discharged; though he should continue being active and working with nursing. Neil is hopeful he will not require oxygen support upon discharge. He remains pleasant in interaction. No change to overall plan. A: 63 year old male admitted to [facility] 03/27/18 for Pneumonia P: Neil will discharge home when ready per MD. No additional services anticipated, he will transport via private vehicle with his .
[2018-03-31] MEDS: AZITHROMYCIN 500 MG in Normal Saline 250 ML 250 MG IVPB (11:43)
[2018-03-31] MEDS: Albuterol/Ipratropium 3 ML UPD VIAL UPD (16:33)
--- NOTE | 2018-03-31 18:28 | NUR.NOTE ---
pts heart rate went into 150's while pt was up in bathroom. Nursing Note:
[2018-03-31] MEDS: Warfarin 5 MG TAB PO (19:20)
[2018-03-31] MEDS: diphenhydrAMINE 25 MG CAP 50 MG PO (21:21)
--- NOTE | 2018-03-31 21:35 | PGE_ITS ---
DATE OF SERVICE: March 31, 2018 ASSESSMENT AND PLAN: #1. Weakness and weight loss. Patient with a constellation of symptoms that included significant we akness, 20-pound weight loss, and dyspnea, all ongoing over the last one to two months. Patient also with evidence of pneumonia as potential etiology. However, Mr. Worthington also has evidence of significan t new-appearing anemia as potential etiology for his fatigue as well. Treatment and workup as outlin ed below. #2. Pneumonia. Patient currently on day #5 of IV antibiotic therapy, IV ceftriaxone and doxycycline previously, with doxycycline changed to azithromycin today. Previously fluoroquinolone and macrolid e therapies were contraindicated secondary to patient's use of antiarrhythmic with Multaq, discontinu ed previously. Remains on supplemental O2 and DuoNebs as well. While the patient does report improvement overall, he continues to have an oxygen requirement and his white count has increased following an initial fall despite a lack of change in his treatment, and w hile afebrile his T-max is 37.6. Repeat chest x-ray was undertaken when looks unchanged to perhaps s lightly improved with a right lower lobe infiltrate from his admission imaging. Will give the patient one additional day and if he continues to have a significant leukocytosis or de velops a fever or worsening O2 requirement, consider broadening antibiotic regimen. Also, will attem pt diuresis as below. #3. Atrial fibrillation. Patient with a history of atrial fibrillation status post ablation, mainta ined on antiarrhythmic and beta brigitte therapy. Review of Cardiology records with potential for int ermittent atrial fibrillation despite use of Multaq, lapsed back into atrial fibrillation while in [facility] in the setting of hypoxia and acute infection, with a rapid ventricular response. Multaq was discontinued and the patient's beta brigitte was continued with the addition of short-actin g low-dose Cardizem. He has had pauses in the 2-second territory. Will attempt to wean Cardizem off if possible. Coumadin reinitiated with subtherapeutic INR, additional dose provided today. The patient also may have some component of volume overload as he went into atrial fibrillation and m aintained a rapid rate while being fluid resuscitated. He was started on IV diuretic therapy, but espinosa s had no evidence of weight loss, improvement in his oxygen saturation, or bump in his BUN and creati nine. Will increase diuretic dose and monitor symptoms, blood pressure, and renal function carefully . #4. Anemia. Significant anemia of uncertain etiology. TSH and B12 appear normal, albeit with a low normal B12 level and low folic acid. The patient's anemia is also microcytic with the appearance of low iron and ferritin but with a low normal TIBC. Abdominal CT of the abdomen and pelvis, as indicated previously, shows potential pathology in the dis callie colon. However, given the patient's last colonoscopy occurred approximately six months ago, doub t neoplasm. Currently awaiting stabilization of the patient from a respiratory and cardiovascular standpoint, ailyn hernandez plans for a surgical consult regarding potential flexible sigmoidoscopy, versus full colonoscopy, p tk or minus an EGD for evaluation both for the abnormality as well as his anemia. For now continue PPI therapy and monitor daily CBC which appears to be stable. Fecal occult blood testing was checked x3 and negative for blood. Continue supplemental folic acid and iron supplementation initiated aleyda heredia. #5. Hypertension. Blood pressure remains reasonable. Continue to hold ALYSA inhibitor but continue b eta brigitte and recently initiated Cardizem. #6. Prophylaxis. Continue to monitor INR, currently slightly subtherapeutic with Coumadin reinitiat ed previously. Continue PPI therapy. #7. Code status - FULL CODE. Approximately 40 minutes were spent in coordination of today's care. SUBJECTIVE: [age]-old man admitted the 27 of March with complaint of shortness of breath , fatigue, and a 20-pound weight loss over the last month. He was also noted to have a significant a nemia, likely iron deficient, while on anticoagulation. Workup in the ED included CT angiogram that, while negative for PE, showed evidence of bilateral uppe r lobe and right lower lobe infiltrates. He also had a significant leukocytosis at the time of admis kyle and required oxygen therapy. Further workup of weight loss also included CT of the abdomen and pelvis which showed evidence of rectosigmoid abnormality, but with a normal-appearing colonoscopy in the fall of 2016. The patient was noted to have mildly increasing levels of oxygen requirement, along with recurrence o f his atrial fibrillation two days ago. As he was initially hypotensive and dehydrated, he was hydra cece initially and his weight had increased. He has since been receiving IV fluids but without signif icant decrease in his weight. No other events were reported, although the patient did remove his oxy gen last night while in the bathroom and experienced tachycardia which resolved with readministration of his oxygen. He remains afebrile. PHYSICAL EXAM: General: The patient appears comfortable sitting in bed, no acute distress, talking in full sentence s. Vitals: Temperature 37.6, with T-max of 37.6. Blood pressure 103/72, with a range of 100-130. Neck: Supple. CV: Irregularly irregular, non-tachycardic. Pulm: Continued mild right-sided basilar crackles, otherwise clear without any significant wheezing. Abdomen: Bowel sounds appreciated. Soft, nontender, nondistended. Vascular: Mild continued bilateral lower extremity edema noted. LABS: Basic metabolic panel entirely normal with the exception of a potassium of 3.4. Magnesium 1.9 . INR subtherapeutic at 1.4. White count 17.7, down from a value of 18.28 yesterday. Hemoglobin of 10.1, platelet count of 603,00 0. Blood cultures with no growth x72 hours. STUDIES: #1. Chest x-ray performed 03/31/18: Findings consistent with acute pneumonitis in the right lower lob e. Follow-up imaging recommended. #2. Echocardiogram: LV ejection fraction 60-65%. Normal diastolic function. Mild AR. Mild to mod erate MR. Pulmonary pressure is 25-35.
[2018-04-01] VITALS (14 sets, daily range): BP systolic 95–120; BP diastolic 59–78; PULSE 68–130; RESP 16–20; TEMP 36–37.7; O2SAT 90–95
[2018-04-01 07:14] LABS: Abs Immature Grans 0.17 k/cumm (0.0-0.09); HCT 35.3 % (40.0-50.0); HGB 10.9 g/dL (13.5-17.5); Mean Corp. HGB Concentration 30.9 g/dL (32.0-36.0); Mean Corpuscular Hemoglobin 23.2 pg (27.0-33.0); Mean Corpuscular Volume 75.1 fL (80-95); Mean Platelet Volume 9.9 fL (8.0-11.0); RBC Distribution Width 18.4 % (11.8-14.1); White Blood Cell Count 14.75 k/cumm (4.4-10.8)
[2018-04-01 07:21] LABS: INR 1.6 (1.0-3.5); Prothrombin Time 15.1 sec (9.3-10.8)
[2018-04-01 07:45] LABS: Anion Gap 9.4 mmol/L (3-11); BUN 20 mg/dL (7-18); CO2 28.6 mmol/L (21.0-32.0); CREATININE 1.21 mg/dL (0.70-1.30); Calcium 9.1 mg/dL (8.5-10.1); Chloride 101 mmol/L (98-107); Glucose 99 mg/dL (70-100); Magnesium 2.3 mg/dL (1.8-2.4); Potassium 3.9 mmol/L (3.5-5.1); Sodium 139 mmol/L (136-145)
[2018-04-01 08:30] LABS: Absolute Basophil Count 0.15 k/cumm (0.0-0.2); Absolute Eosinophil Count 0.15 k/cumm (0.0-0.7); Absolute Lymphocyte Count 3.54 k/cumm (1.2-3.4); Absolute Monocyte Count 1.33 k/cumm (0.11-0.7); Absolute Neutrophil Count 9.59 k/cumm (1.2-6.7); Anisocytosis 2+; Atypical Lymphocytes % 4; Diff Comment Manual Differential; Platelet Count 615 x1000/uL (130-400); Polychromasia Present
[2018-04-01] MEDS: Sertraline 50 MG TAB 150 MG PO (09:28)
[2018-04-01] MEDS: Ferrous Sulfate 325 MG TAB PO ×2 (09:30→20:04)
[2018-04-01] MEDS: Pantoprazole 40 MG TABCR PO (09:30)
[2018-04-01] MEDS: Metoprolol 25 MG TAB PO ×2 (09:30→20:04)
[2018-04-01] MEDS: Folic Acid 1 MG TAB PO (09:31)
[2018-04-01] MEDS: Furosemide 40 MG/4 ML VIAL IVP (10:17)
[2018-04-01] MEDS: Normal Saline Flush 10 ML SYR IVP ×3 (10:18→20:07)
[2018-04-01] MEDS: Albuterol/Ipratropium 3 ML UPD VIAL UPD (10:46)
[2018-04-01] MEDS: AZITHROMYCIN 500 MG in Normal Saline 250 ML 250 MG IVPB (11:15)
--- NOTE | 2018-04-01 16:08 | PDOC.CMPRO ---
Care Management Progress Note S/O: Neil was lying in bed when CM met with him, he remains pleasant in interaction. No change to overall plan. A: 63 year old male admitted to [facility] 03/27/18 for Pneumonia P: Neil will discharge home when ready per MD. Per MD, the goal is for Neil to not require the support of O2 upon discharge, and have a possible colonoscopy follow up for suspected colon mass. He will transport via private vehicle with his .
--- NOTE | 2018-04-01 16:11 | CMPROGNOTE_ITS ---
Care Management Progress Note S/O: Neil was lying in bed when CM met with him, he remains pleasant in interaction. No change to overall plan. A: 63 year old male admitted to [facility] 03/27/18 for Pneumonia P: Neil will discharge home when ready per MD. Per MD, the goal is for Neil to not require the support of O2 upon discharge, and have a possible colonoscopy follow up for suspected colon mass. He will transport via private vehicle with his .
[2018-04-01] MEDS: Potassium Chloride 10 MEQ TABCR PO (16:14)
--- NOTE | 2018-04-01 16:30 | PGE_ITS ---
DATE OF SERVICE: April 01, 2018 ASSESSMENT/PLAN: 1) Weakness and weight loss. The patient with a constellation of symptoms that in cluded significant weakness, 20 lb weight loss and dyspnea, ongoing over the last 1-2 months. Also with evidence of pneumonia as potential etiology. The patient also was with significant anemia as po tential etiology for his fatigue. Treatment and work-up as outlined below. 2) Pneumonia. Currently on day # 6 of IV antibiotics with Ceftriaxone and Doxycycline, which was adriel nged to Azithromycin following discontinuation of Multaq. Continues to be on supplemental O2 with D uoNebs on a PRN basis. The patient does report improvement overall. His CXR looks unchanged to slightly improved. He does have continued leukocytosis, although improved today. Will continue to monitor symptoms closely. C ontinue to attempt weaning oxygen as able. The patient also did receive 2 days worth of diuresis successfully, diuretic currently being disconti nued. 3) Atrial fibrillation. History of atrial fibrillation, S/P ablation. Maintain on antiarrhythmics a nd Beta brigitte therapy. Review of Cardiology records with potential likely intermittent atrial fib rillation despite use of Multaq, lapsed back into atrial fibrillation while in the hospital in the se tting of hypoxia and acute infection with rapid ventricular response. Multaq discontinued, oral Cardizem started in addition to Beta brigitte therapy. The patient has had some mild 2-second pauses. Cardizem was discontinued but the patient lapsed back into atrial fibril lation. It was restarted today and will attempt to wean again. He remains off of Multaq. Additiona l dose of Coumadin for slightly subtherapeutic INR. The patient may also have had some component of volume overload as he went into atrial fibrillation a nd maintained a rapid ventricular response while being fluid resuscitated. He received 2 days of IV diuretic therapy with good response. Will continue to monitor renal function carefully. 4) Anemia. Patient with evidence of microcytic, iron deficiency anemia with a prior history of rec urrent bouts of significant epistaxis. This may be the source of blood loss. His stool has returned negative for occult blood testing. TSH and B12 were normal, albeit with a low-normal B12 level. F olic acid was low as well. Abdominal CT of the abdomen and pelvis indicated a rectosigmoid abnormality, despite a normal reporte d colonoscopy in the fall. Have been attempting to obtain colonoscopy results from [facility]. Doubt malignancy but the plan is for a potential flexible sigmoidoscopy once th e patient is stable from a respiratory standpoint. For now, continue to monitor CBC and continue iron supplementation. The patient is also on folic ac id supplementation. 5) Hypertension. Blood pressure remains reasonable to mildly low. Continue to hold ALYSA inhibitor. Continue Beta blockers and recently initiated Cardizem. 6) Prophylaxis. Continue to monitor INR. Currently improved but still slightly subtherapeutic. Co ntinue proton pump inhibitor therapy. 7) CODE STATUS. FULL CODE. 40 minutes were spent in coordination of today's care. SUBJECTIVE: 63-year-old man admitted on the 27 of March with complaint of shortness of breath, fa tigue and a 20 lb weight loss over the last month. Also noted to have a significant anemia, likely iron deficient while on anticoagulation. Work-up in the Emergency Department included CT angiogram that, while negative for pulmonary embolus, showed evidence of bilateral upper lobe and right lower lobe infiltrates. He also had a significant leukocytosis at the time of admission and required supplemental oxygen therapy. Further work-up of weight loss included a CT of the abdomen, pelvis which showed evidence of rectosig moid abnormality, but with a reportedly normal-appearing colonoscopy in the fall of 2016. The patient is currently back into sinus rhythm, but has been flipping back and forth between atrial fibrillation and sinus. He may have had a small amount of heart failure based on a rapid ventricula r response, diuresed over the last 2 days. His white count, which had gone up, is currently starting to climb back down but still elevated at 14.75. His Prednisone therapy has been completely discont inued. This morning, Mr. Worthington reports noticeable improvement in his symptoms. No other events were reported overnight. He remains afebrile. PHYSICAL EXAMINATION: In general, the patient appears comfortable, sitting out of bed in chair, no ac qagan tayagungin distress noted. Again talking in full sentences. Vital signs - temperature 36.2 and afebrile. Blood pressure 116/68 with a systolic range in the 100' s-110's mainly. Heart rate currently in the 60's to 70's, but as high as 130 when he converts to at rial fibrillation. Currently 92% on 3 L by nasal cannula. Neck - supple. Cardiovascular - regular at the time of examination. Nontachycardic. Pulmonary - continued mild right-sided basilar crackles. Otherwise clear with good air entry and no wheezing. Abdomen - bowel sounds appreciated, soft, nontender, nondistended. Vascular - mild, continued bilateral lower extremity edema noted. LABORATORY DATA: Sodium, potassium, bicarb and chloride are all normal. BUN 20, creatinine 1.21. INR 1.6. White blood count 14.75, down from 17.7 yesterday and 18.28 the day before. HGB 10.9. Platelet cou nt 615,000. Normal segs, monocytes and lymphocytes, and no bandemia. STUDIES: CXR repeated 03/31/2018 - findings consistent with acute pneumonitis in the right lower lobe. Follow-up imaging recommended. As per discussion with Radiology, appearance is unchanged from the time of admission.
[2018-04-01] MEDS: Warfarin 5 MG TAB PO (20:04)
[2018-04-01] MEDS: Metoprolol 12.5 MG TAB PO (20:04)
[2018-04-01] MEDS: diphenhydrAMINE 25 MG CAP 50 MG PO (20:12)
[2018-04-02] VITALS (11 sets, daily range): BP systolic 101–134; BP diastolic 66–83; PULSE 63–115; RESP 17–20; TEMP 36.4–37.3; O2SAT 91–95
[2018-04-02 07:18] LABS: HCT 34.1 % (40.0-50.0); HGB 10.5 g/dL (13.5-17.5); Mean Corp. HGB Concentration 30.8 g/dL (32.0-36.0); Mean Corpuscular Hemoglobin 23.3 pg (27.0-33.0); Mean Corpuscular Volume 75.8 fL (80-95); RBC Distribution Width 18.4 % (11.8-14.1); White Blood Cell Count 12.98 k/cumm (4.4-10.8)
[2018-04-02 07:29] LABS: INR 1.6 (1.0-3.5); Prothrombin Time 15.4 sec (9.3-10.8)
[2018-04-02 07:32] LABS: BUN 22 mg/dL (7-18); CREATININE 1.27 mg/dL (0.70-1.30); Chloride 100 mmol/L (98-107); Estimated GFR 56.92 (mL/min/1.73m2); Glucose 92 mg/dL (70-100); Magnesium 2.3 mg/dL (1.8-2.4); Sodium 139 mmol/L (136-145)
[2018-04-02 07:46] LABS: Absolute Neutrophil Count 9.09 k/cumm (1.2-6.7)
[2018-04-02 07:47] LABS: Absolute Basophil Count 0.13 k/cumm (0.0-0.2); Absolute Lymphocyte Count 1.82 k/cumm (1.2-3.4); Absolute Monocyte Count 1.95 k/cumm (0.11-0.7); Anisocytosis 2+; Atypical Lymphocytes % 3; Diff Comment Manual Differential; Hypochromasia 3+; Microcytosis 3+; Poikilocytes 1+; Polychromasia Present
[2018-04-02 07:48] LABS: Platelet Count 564 x1000/uL (130-400)
[2018-04-02] MEDS: Metoprolol 12.5 MG TAB PO ×2 (08:29→19:19)
[2018-04-02] MEDS: Metoprolol 25 MG TAB PO ×2 (08:29→19:20)
[2018-04-02] MEDS: Ferrous Sulfate 325 MG TAB PO ×2 (08:29→19:19)
[2018-04-02] MEDS: Pantoprazole 40 MG TABCR PO (08:29)
[2018-04-02] MEDS: Warfarin 5 MG TAB PO ×2 (08:29→19:20)
[2018-04-02] MEDS: Sertraline 50 MG TAB 150 MG PO (08:29)
[2018-04-02] MEDS: Folic Acid 1 MG TAB PO (08:29)
--- NOTE | 2018-04-02 10:44 | IN_ITS ---
INPATIENT PHYSICAL THERAPY EVALUATION Date: 04/02/18 Referring Doctor: Facundo Rizzo PT Orders: PT Consult lengthy hospital stay, deconditioning Precautions: Standard precautions PATIENT PROFILE/ADMITTING DIAGNOSIS: Patient is a 63 year old male admitted 03/27 secondary to generalized weakness, shortness of breath, pneumonia, atrial fibrillation, anemia and fatigue. PMHX: atrial fibrillation, cardiac ablation, migraine headaches, [place]'s Esophagus, gastroesophageal reflux disease, collagenous colitis, hiatal hernia, hypertension, cholecystectomy, finger surgery Social History/Home Situation: Lives in [place] with his in multi-level home with 5 steps with railing to enter. Baseline mobility independent gait with no device, independent with ADLS Equipment owned/DME: None SUBJECTIVE: Pt sitting in chair, states he feels good today, wanting to walk in the hallways. Pt states he has walked one time with nursing in hallways since he was discharged from PT services. Pt states he feels weaker when he has episodes of AFib and then stronger when it is resolved. OBJECTIVE: General Observation: telemetry, 1 liter 02 NC Mental Status: A& O x3 Pain: no c/o pain ROM: RUE: AROM WNL LUE AROM WNL RLE AROM WNL LLE AROM WNL STRENGTH: RUE 5/5 throughout LUE 5/5 throughout RLE 5/5 throughout LLE 5/5 throughout BED MOBILITY/TRANSFERS: Supine-sit: independent Sit-stand: independent Stand-sit: independent Sit-supine: independent GAIT: Pt independent with donning socks and sneakers for walking. Independent gait with no device in hallways 300ft, 1 liter 02 NC in tow. Pt with no shortness of breath and able to carry on a conversation. STAIRS up/down 5 steps with railing independent, step over step sequence THEREX Pt issued and instructed in lower extremity strengthening program, able to perform therex independently. Recommend pt perform therex 2x/day at 20 reps each. BALANCE: Static sitting normal Dynamic Sitting normal Static Standing normal Dynamic Standing good SPECIAL TESTS: Mobility Limitations Standardized Measure [facility] AM -PAC 6 clicks Basic Mobility Inpatient Short Form: raw score: 24 standardized score: 61.14 CMS score: 0 % CMS modifier: CH INFORMED CONSENT/EDUCATION: Pt instructed in purpose of PT Consult and plan of care ASSESSMENT: Patient is a 63 year old male admitted 03/27/18 secondary to generalized weakness, shortness of breath, pneumonia, atrial fibrillation, anemia and fatigue in setting of atrial fibrillation, cardiac ablation, migraine headaches. Patient presents at independent level of functional mobility with transfers, gait and stairs. At functional level to be able to return to home setting. Skilled PT services not indicted. Pt should walk 3x/day with nursing staff in hallways to maintain strength and mobility up until discharge. Impairments are contributing to the following functional limitations: AMPAC score CMS score: 0% Patient is assessed as a *Low 35419 complexity based on the following: History: pneumonia, atrial fibrillation, anemia and fatigue in setting of atrial fibrillation, cardiac ablation, migraine headaches. Examination: requires 1 liter 02 with gait and to wear sneakers with gait Presentation: stable Decision Making: AMPAC score CMS score: 0% GOALS not applicable PLAN OF CARE/TREATMENT PLAN: PT Eval only DISCHARGE RECOMMENDATIONS home TREATMENT TIME/MINUTES/CODES 30 IE 10:40 G Codes in the area mobility of walking and moving around: current status [id number] projected status GP [id number] . Discharge status (if discharging) GP [id number]- jojmg on AMPAC score CMS score: 0% Lorraine Correa PT
--- NOTE | 2018-04-02 10:55 | PDOC.CMPRO ---
Care Management Progress Note S/O-Neil was sitting up in chair when CM met with him. He got up with PT and agrees he needs to be ambulating more. No change to overall plan. A-63 yo man admitted with pneumonia. P-d/c home as per MD, no services anticipated. Plan is for him to go home without O2. His will transport.
--- NOTE | 2018-04-02 11:50 | PGE_ITS ---
PROGRESS NOTE DATE OF SERVICE April 02, 2018 at 11:05 a.m. DICTATING PHYSICIAN Facundo Rizzo M.D. ASSESSMENT AND PLAN 1. Pneumonia. Currently day #7 of IV antibiotics initially with ceftriaxone and doxycycline. Changed to azithromycin following discontinuation of Multaq three days ago. Continues to require supplement al O2 and DuoNebs on a p.r.n. basis. Chest x-ray was repeated due to initially worsened white blood counts, looked unchanged to slightly i mproved per discussion with Radiology. White count continues to trend down, which is a good sign overall. Will attempt to ambulate the patie nt and continue to monitor his sputum culture, currently growing a Gram-positive bacteria not yet spe ciated. The patient also did receive two days' worth of diuresis in the setting of fluid resuscitation and co nversion to atrial fibrillation with rapid ventricular response. As a part of treatment of his dyspne a on O2 requirement. 2. Weakness and weight loss. Constellation of symptoms that included significant weakness and 20-diane nd weight loss, along with dyspnea ongoing for approximately one to two months. Patient with pneumo charbel potential etiology, potentially contributed also by his significant anemia. 3. Afib. History of Afib status post ablation and maintained chronically on antiarrhythmic with Mult aq, as well as beta-brigitte therapy. Reviewed Cardiology records with potential likely intermittent a trial fibrillation as an outpatient despite use of an antiarrhythmic, with some thought regarding dis continuation of this medication as an outpatient. Mr. Worthington lapsed back into Afib in the hospital in the setting of hypoxia and acute infection with an RVR. Since that time, the patient has converted to sinus rhythm and intermittently gone back into Afib, bu t currently remains in sinus rhythm for over 24 hours. His beta-brigitte therapy was increased; low-do se short-acting Cardizem was also added to his regimen. Multaq has now been discontinued. Additional dose of Coumadin today secondary to subtherapeutic INR. 4. Anemia. The patient with evidence of microcytic iron deficiency anemia with a prior history of re current bouts of significant epistaxis. CT of the abdomen and pelvis that was obtained by the admitt ing provider shows a rectosigmoid abnormality, however, not only has the patient's stool been negativ e for occult blood testing on multiple occasionally, he has had a colonoscopy last performed in Octob er 2017, for further evaluation of chronic diarrhea and suspected microscopic colitis. At that time, two diminutive polyps were removed without any other abnormalities noted. Will plan on a potential f lexible sigmoidoscopy for further evaluation of this in the future; consider to be done as an outpati ent at this point. For now, continue to monitor CBC. The patient has also been started on iron supplementation and foli c acid supplementation for low folic acid. Of note the patient's TSH was normal and B12 was low/guillermo l. 5. Hypertension. Blood pressure remains reasonable. Continue to hold ALYSA inhibitor. Continue beta- brigitte and recently initiated Cardizem. 6. Prophylaxis. Continue to monitor INR. Continue PPI therapy. CODE STATUS - FULL CODE. SUBJECTIVE A 63-year-old man admitted March 27 with complaints of shortness of breath, fatigue, 20-pound weight loss over the last month. Also noted to have an anemia that appears iron deficient in a patient on an ticoagulation. Further workup revealed evidence of multilobar pneumonia by CT, as well as an area of rectosigmoid ab normality. The patient has remained on antibiotic therapy, and his white counts while initially incr eased, has been down trending but still mildly elevated. His prednisone therapy is now completely dis continued. Mr. Worthington however, remains oxygen dependent, and while feeling improved overall, he is not yet at his baseline. No overnight events were reported. He remains afebrile. The patient has maintained sinus rhythm since yesterday. PHYSICAL EXAMINATION GENERAL - The patient appears comfortable sitting in bed. No acute distress noted. VITAL SIGNS - Temperature 36.4 and afebrile. Blood pressure 111/72. Heart rate 66. Pulse oximetry 92% on 2 liters. NECK - Neck is supple. CARDIOVASCULAR - Regular, at time of exam not tachycardic. PULMONARY - Continued mild right bibasi lar crackles, otherwise clear with good air entry and no wheezing. ABDOMEN - Bowel sounds appreciated, soft, nontender, nondistended. VASCULAR - Mild continued bilateral lower extremity edema noted. LABORATORY STUDIES Basic metabolic panel essentially normal with a BUN of 22 and creatinine of 1.27. INR still mildly antunez btherapeutic at 1.6. White count has improved to 12.98 from 1475 yesterday. 17.7 the day before, and 18.28 prior to that. Hemoglobin 10.5, platelet count 564, down from 615 yesterday; 70 segs, 11 lymphocytes, 15 monocyte s and no bands. Sputum culture was not collected until March 31, showing moderate epithelial cells, moderate white blood cells and moderate Gram-positive cocci, currently growing Gram-positive margarita not yet speciated. Blood cultures remain with no growth x120 hours.
[2018-04-02] MEDS: AZITHROMYCIN 500 MG in Normal Saline 250 ML 250 MG IVPB (12:10)
[2018-04-02] MEDS: diphenhydrAMINE 25 MG CAP 50 MG PO (21:24)
[2018-04-03] VITALS (14 sets, daily range): BP systolic 98–118; BP diastolic 55–77; PULSE 62–90; RESP 16–20; TEMP 36.1–37.4; O2SAT 92–98
[2018-04-03 07:17] LABS: Abs Immature Grans 0.14 k/cumm (0.0-0.09); Absolute Basophil Count 0.08 k/cumm (0.0-0.2); Absolute Lymphocyte Count 2.59 k/cumm (1.2-3.4); Absolute Neutrophil Count 6.88 k/cumm (1.2-6.7); Basophils % 0.7; Eosinophils % 2.5; HCT 33.7 % (40.0-50.0); HGB 10.4 g/dL (13.5-17.5); Immature Grans % 1.3; Lymphocytes % 23.5; Mean Corp. HGB Concentration 30.9 g/dL (32.0-36.0); Mean Corpuscular Hemoglobin 23.4 pg (27.0-33.0); Mean Corpuscular Volume 75.7 fL (80-95); Mean Platelet Volume 9.6 fL (8.0-11.0); Monocytes % 9.5; Neutrophils % 62.5; Platelet Count 492 x1000/uL (130-400); RBC 4.45 m/cumm (4.50-6.00); RBC Distribution Width 18.4 % (11.8-14.1)
[2018-04-03 07:24] LABS: Absolute Eosinophil Count 0.28 k/cumm (0.0-0.7); Absolute Monocyte Count 1.05 k/cumm (0.11-0.7)
[2018-04-03 07:28] LABS: INR 2.2 (1.0-3.5); Prothrombin Time 20.5 sec (9.3-10.8)
[2018-04-03 07:31] LABS: Anion Gap 8.5 mmol/L (3-11); BUN 18 mg/dL (7-18); CO2 28.5 mmol/L (21.0-32.0); CREATININE 1.25 mg/dL (0.70-1.30); Calcium 8.5 mg/dL (8.5-10.1); Chloride 102 mmol/L (98-107); Estimated GFR 57.97 (mL/min/1.73m2); Glucose 96 mg/dL (70-100); Magnesium 2.1 mg/dL (1.8-2.4); Sodium 139 mmol/L (136-145)
[2018-04-03] MEDS: Folic Acid 1 MG TAB PO (08:44)
[2018-04-03] MEDS: Ferrous Sulfate 325 MG TAB PO ×2 (08:44→20:03)
[2018-04-03] MEDS: Pantoprazole 40 MG TABCR PO (08:45)
[2018-04-03] MEDS: Sertraline 50 MG TAB 150 MG PO (08:45)
[2018-04-03] MEDS: Metoprolol 25 MG TAB PO ×2 (08:46→20:04)
[2018-04-03] MEDS: Metoprolol 12.5 MG TAB PO ×2 (08:46→10:35)
[2018-04-03] MEDS: Cefpodoxime 200 MG TAB PO ×2 (12:42→23:27)
[2018-04-03] MEDS: Normal Saline Flush 10 ML SYR IVP (12:43)
[2018-04-03] MEDS: AZITHROMYCIN 500 MG in Normal Saline 250 ML 250 MG IVPB (12:43)
--- NOTE | 2018-04-03 13:42 | PDOC.CMPRO ---
Care Management Progress Note S/O: Neil was sitting on the side of the bed when CM met with him. He reported that he had struggled with his heart rates when ambulating and shaving. Neil also reported he was aware he may discharge on new home O2, and felt comfortable doing so. While discussing discharge planning, it became apparent that Neil will not meet homebound criteria at this time to be eligible for home services. An outpatient plan will need to be developed to monitor his O2, INR and he will likely discharge with a Ziopatch monitor. A: 63 year old male admitted to [facility] 03/27/18 for Pneumonia P: Neil will discharge home when ready per MD. He will have a comprehensive outpatient follow up plan He will transport via private vehicle with his .
--- NOTE | 2018-04-03 13:57 | PGE_ITS ---
DATE OF SERVICE: April 03, 2018 ASSESSMENT/PLAN: 1) Pneumonia. The patient had fairly slow response to antibiotics therapy, and hi s white count did not really start to improve until changed from Doxycycline to IV Azithromycin. He also continues to require supplemental oxygen despite completed 7 day course of antibiotic therapy. He is no longer wheezing and has been of steroid therapy, but is still receiving DuoNebs on a PRN b asis. CXR was repeated previously due to initially worsened white blood counts, but looked unchanged to sli ghtly improved per discussion with Radiology. Sputum cultures were checked but showing growth of nor mal margarita only, and blood cultures have remained with no growth to date. Considered broadening antibiotic therapy but as the patient has remained afebrile and his white count has declined and is nearly normal, have held off. Unsure if he continues to be hypoxic in the setti ng of somewhat extensive bilateral upper lobe and right lower lobe pneumonia with underlying chronic obstructive pulmonary disease vs inappropriately treated infection. At this time, as the patient is a febrile, and his white count is nearly normalized, would favor continuation of current antibiotic reg imen, perhaps for a slightly longer course. Will change to oral Cefpodoxime and Azithromycin today. Will also check procalcitonin levels today, and consider repeat in 2 days as an outpatient if the patient is discharged to guide in cessation or change in antibiotic therapy. Will also plan on repeating CBC in the morning to ensure hopeful normalization of the patient's white blood count. As stated before, he remains afebrile. 2) Atrial fibrillation. History of atrial fibrillation, S/P ablation in the past, previously maintai kusum on antiarrhythmic therapy with Multaq as well as concurrent Beta brigitte therapy. It appears isabella t the patient may have been in and out of atrial fibrillation/ atrial flutter even as an outpatient, in the setting of acute infection and hypoxia. He has been lapsing back and forth into atrial fibril lation. For that reason, the patient's Multaq was discontinued. Mr. Worthington appears rate-controlled on current regimen only at rest and with minimal activity while in a trial fibrillation. He does become tachycardic and sustains with fairly elevated heart rates. Will continue and further increase Beta brigitte therapy, and increase Cardizem to 8 h dosing and maintai n on telemetry. If the patient is rate-controlled, consider discharge with a Holter/ ZIO patch mon itor for further outpatient monitoring, with a short-course follow-up with his Financing Analyst. INR is therapeutic today, with plans of repeat in 2-3 days following discharge. 3) Weight loss. Constellation of symptoms including weakness and weight loss, in a setting of signi ficant pneumonia which may have been underlying in patient for some time prior to presentation to the hospital. However, as he also presented with a significant anemia, the admitting provider also liliam cked a CT of the abdomen and pelvis to check for occult malignancy. This showed evidence of a recto sigmoid abnormality that will require further work-up. However, Mr. Worthington's history was reviewed and it appears that he had a colonoscopy in 2012, and a repeat colonoscopy in August of 2017 which, fo r all intents and purposes, appeared to be normal (diminutive polyps only). Highly doubt malignancy . The patient's stool occult blood testing was also negative on multiple occasions. His iron defi ciency is likely in the setting of significant recurrent epistaxis in the recent past. Recommend th at the patient undergo flexible sigmoidoscopy as an outpatient for further evaluation of the CAT scan abnormalities. He was also started on supplemental ferrous sulfate for his anemia. 4) Anemia. Noted iron deficiency anemia, with work-up and treatment as above. Of note, the patient has also had a normal TSH and low-normal B12 with a low folic acid. He remains on both iron and fol ic acid supplementation. 5) Hypertension. Blood pressure remains reasonable to slightly hypotensive, especially in the settin g of rapid atrial fibrillation. Continue to hold ALYSA inhibitor. Continue current up-titrated Beta blockers and recently initiated, currently up-titrated Cardizem with hold parameters. 6) Prophylaxis. INR is therapy. Continue Coumadin. Continue proton pump inhibitor therapy. 7) CODE STATUS. FULL CODE. Approximately 40 minutes were spent in coordination of today's care. SUBJECTIVE: 63-year-old man admitted March 27 with complaints of weakness, fatigue, 20 lb weight loss over the last month and complaints of progressive dyspnea over the last month. Also noted to b e anemic at the time of admission. Further work-up revealed evidence of multilobar pneumonia by CT as well as an area of rectosigmoid ab normality by imaging of the abdomen and pelvis. The patient remained on antibiotic therapy, but his white count was somewhat slow to respond. However, he has been downtrending, and today is minimally elevated only. His Prednisone therapy has been discontinued for some time now. Mr. Worthington, however , continues to remain oxygen dependent while feeling improved overall. The patient also has a history of atrial fibrillation, and has intermittently lapsed back and forth i nto sinus rhythm and atrial fibrillation. While in atrial fibrillation, he has a rapid ventricular r esponse with minimal activity and is symptomatic. However, at rest, he is well rate controlled. No overnight events were reported other than the patient lapsing back into atrial fibrillation. He remains afebrile. PHYSICAL EXAMINATION: General - the patient appears quite comfortable, lying in bed, no acute distr ess noted. Vital signs - temperature 36.2 and afebrile. Blood pressure 106/73. Heart rate currently in the 80 's at rest, was sustained in the 150's while shaving. Pulse oximetry 92% on 2 L. Neck - supple. Cardiovascular - irregularly irregular but nontachycardic. Pulmonary - continued mild right basilar crackles only, otherwise clear. Abdomen - bowel sounds appreciated, soft, nontender, nondistended. Vascular - no significant lower extremity edema noted. Laboratory data - basic metabolic panel entirely within normal limits. Magnesium 2.1. INR therapeutic at 2.2. White count has come down to 11 from a prior value of 12.98, 14.74, 17.7 and 18.28. HGB stable at 10.4. Platelet count continues to improve at 492,000, down from 564,000 and 615,000 previously. 62 segs, 23 lymphocytes, 9.5 monocytes.
--- NOTE | 2018-04-03 17:41 | CMPROGNOTE_ITS ---
Care Management Progress Note S/O: Neil was sitting on the side of the bed when CM met with him. He reported that he had struggled with his heart rates when ambulating and shaving. Neil also reported he was aware he may discharge on new home O2, and felt comfortable doing so. While discussing discharge planning, it became apparent that Neil will not meet homebound criteria at this time to be eligible for home services. An outpatient plan will need to be developed to monitor his O2, INR and he will likely discharge with a Ziopatch monitor. A: 63 year old male admitted to [facility] 03/27/18 for Pneumonia P: Neil will discharge home when ready per MD. He will have a comprehensive outpatient follow up plan He will transport via private vehicle with his .
[2018-04-03] MEDS: Warfarin 5 MG TAB PO (20:03)
[2018-04-03] MEDS: diphenhydrAMINE 25 MG CAP 50 MG PO (23:26)
[2018-04-04] VITALS (7 sets, daily range): BP systolic 109–129; BP diastolic 77–80; PULSE 63–77; RESP 18–19; TEMP 36.3–36.6; O2SAT 89–93
--- NOTE | 2018-04-04 07:09 | CMPROGNOTE_ITS ---
Care Management Progress Note S/O: Respiratory Therapist; Carlene reported that Neil would likely not have insurance coverage for home O2 as his clinical status does not meet guidelines. She will discuss this new development with Neil. Undetermined if Neil will return home on O2 or be weaned off prior to discharge. No other changes to discharge plan. Neil continues to be pleasant in interaction. He ambulates independently with oxygen on and reports being hopeful he can discharge soon. A: 63 year old male admitted to [facility] 03/27/18 for Pneumonia P: Neil will discharge home when ready per MD. He will have a comprehensive outpatient follow up plan including home O2 through [place]-coordinated by RT and a [employer] monitor. He will transport via private vehicle with his .
[2018-04-04 07:13] LABS: Abs Immature Grans 0.11 k/cumm (0.0-0.09); Absolute Basophil Count 0.04 k/cumm (0.0-0.2); Absolute Eosinophil Count 0.25 k/cumm (0.0-0.7); Absolute Monocyte Count 0.81 k/cumm (0.11-0.7); Basophils % 0.4; Eosinophils % 2.7; HCT 33.1 % (40.0-50.0); Immature Grans % 1.2; Lymphocytes % 25.8; Mean Corp. HGB Concentration 30.2 g/dL (32.0-36.0); Mean Corpuscular Volume 76.1 fL (80-95); Mean Platelet Volume 9.7 fL (8.0-11.0); Monocytes % 8.7; Neutrophils % 61.2; Platelet Count 462 x1000/uL (130-400); RBC 4.35 m/cumm (4.50-6.00); RBC Distribution Width 18.5 % (11.8-14.1); White Blood Cell Count 9.31 k/cumm (4.4-10.8)
[2018-04-04 07:20] LABS: Anion Gap 7.7 mmol/L (3-11); BUN 15 mg/dL (7-18); CO2 29.3 mmol/L (21.0-32.0); CREATININE 1.18 mg/dL (0.70-1.30); Calcium 8.7 mg/dL (8.5-10.1); Chloride 102 mmol/L (98-107); Glucose 98 mg/dL (70-100); INR 2.4 (1.0-3.5); Magnesium 2.3 mg/dL (1.8-2.4); Potassium 3.9 mmol/L (3.5-5.1); Prothrombin Time 22.5 sec (9.3-10.8); Sodium 139 mmol/L (136-145)
[2018-04-04] MEDS: Azithromycin 250 MG TAB PO (08:55)
[2018-04-04] MEDS: Metoprolol CR 50 MG TABCR PO (08:55)
[2018-04-04] MEDS: Folic Acid 1 MG TAB PO (08:55)
[2018-04-04] MEDS: Ferrous Sulfate 325 MG TAB PO (08:56)
[2018-04-04] MEDS: Pantoprazole 40 MG TABCR PO (08:56)
[2018-04-04] MEDS: Sertraline 50 MG TAB 150 MG PO (08:56)
[2018-04-04] MEDS: Cefpodoxime 200 MG TAB PO (10:38)
--- NOTE | 2018-04-04 11:36 | DISCHARGE ---
Discharge - Discharge Orders Referrals: Radha Tobar MD [Primary Care Provider] - 04/20/18 8:15 am - Discharge Plan Disposition: HOME Condition: Improving Diet:: As Tolerated Equipment/Supplies:: Zio Patch Activity:: Activity as Tolerated - Instructions Micromedex Instructions: Pneumonia (DC), Atrial Fibrillation (DC) Additional Instructions: Go to [facility] on 04/[facility], for a nurse visit to check your INR. Once the INR is less than 2.0, start the Eliquis. Call your doctor or return to the ER if you develop increasing shortness of breath, worsening cough, or experience bleeding with the new anticoagulant, Eliquis.
--- NOTE | 2018-04-04 14:10 | DSE_ITS ---
Date of Admission: 03/27/2018 Date of Discharge: 04/04/2018 Discharge Diagnoses: 1. Multilobar community-acquired pneumonia - no pathogens identified with negative blood culture, normal margarita on sputum culture. 2. Paroxysmal atrial fibrillation with rapid ventricular response. 3. Supratherapeutic anticoagulation. 4. Microcytic anemia: a) Iron and folate levels low. b) Heme-negative stool. 5. Transient diarrhea; Clostridium difficile negative, Giardia cryptosporidia antigen negative. 6. Hypertension. 7. Gastroesophageal reflux disease with history of Oviedo's. 8. Transient hypokalemia. Diagnostic Data: Blood culture negative. Sputum culture normal margarita. Clostridium difficile negative. Cryptosporidia and Giardia antigens negative. INR 4.1 on admission, 2.4 on day of discharge. White count 12,000 on admission rising to 18,000; and 9300 on discharge. Hemoglobin 9 on admission, 10.0 on discharge, MCV 70s. Iron 12, TIBC low normal 254, B12 of 387, serum folate 7.6. Potassium 3.4 on admission, 3.9 on discharge. Troponin less than 0.2. Chest CT for pulmonary embolism; negative for pulmonary embolism. Bilateral upper and right lower lobe infiltrates. Abdominal and pelvic CT (done because of history of unexplained weight loss). Raised question of possible distal colon focal wall thickening. Echocardiogram with normal LV size and function, normal diastolic function, mild aortic and mitral valve regurgitation, normal RV size and function. Medication Changes: 1. Multaq discontinued. Warfarin discontinued. 2. Lisinopril at least temporarily discontinued. 3. Diltiazem extended release added. 4. Eliquis to start once INR below 2.0. 5. Oral antibiotics with azithromycin and cefpodoxime for 5 additional days post discharge. History: Mr. Worthington is a 63-year-old man with a history of paroxysmal atrial fibrillation, GERD with Oviedo's changes and chronic diarrhea who presented to the emergency department with a 1-month history of progressive malaise, shortness of breath, and productive cough. His initial evaluation in the emergency room was concerning for elevated D- dimer which prompted CT angiography showing multilobar pneumonia. He was also supratherapeutic in his INR and had significant leukocytosis and hypoxemia and so was admitted for treatment of community-acquired pneumonia. Past Medical History: 1. He has a history of paroxysmal atrial fibrillation anticoagulated on warfarin , . 2. Oviedo's esophagus. 3. Gastroesophageal reflux disease with Oviedo's esophagus. 4. History of migraines. 5. History of collagenous colitis. 6. Hypertension. 7. Hiatal hernia. Past Surgical History: 1. Cardiac ablation 2011 at [facility]. 2. Cholecystectomy. 3. Finger surgery. Allergies: No known allergies. Medications: 1. Multaq 400 mg p.o. b.i.d. 2. Benadryl 50 mg p.o. at bedtime. 3. Imitrex 50 mg p.o. p.r.n. 4. Pantoprazole 40 mg p.o. daily. 5. Metoprolol succinate 50 mg p.o. daily. 6. Lisinopril 10 mg q.a.m. 7. Warfarin sodium 5 mg p.o. daily. 8. Zoloft 150 mg p.o. q.a.m. Hospital Course: His respiratory status was one of very slow improvement and in fact some initial deterioration. Because of Multaq he was placed on doxycycline and ceftriaxone but with lack of improvement in symptoms and continued leukocytosis , and in fact worsening leukocytosis his antibiotic spectrum was expanded to Unasyn and doxycycline. Multaq was eventually discontinued (see below) and so antibiotics were then changed back to azithromycin and converted to oral cefpodoxime when he showed sufficient clinical response. He had a follow up chest x-ray which did not show any significant change when compared to his admitting CT scan, but no worsening. His leukocytosis resolved. His oxygen requirements steadily improved. By the day of discharge he was ambulating; albeit getting a bit fatigued, with an SaO2 of 89%. His lung exam showed marked improvement with only an occasional basilar crackle heard at the time of discharge. He had paroxysmal bouts of atrial fibrillation with rapid ventricular response. Due to the failure of his rhythm control medication, Multaq, conversation was held with Dr. Gandhi and the decision was made to discontinue the Multaq. His initial INR was supratherapeutic and was allowed to drift down by withholding warfarin. In conversation through his hospitalization he decided he did not want to continue with warfarin because of the fluctuation in his INR and inconvenience of needing to monitor. He preferred to be on direct acting oral anticoagulant and will be discharged with a prescription for Eliquis to start once his INR is below 2.0. Rate control of his atrial fibrillation was obtained with the addition of diltiazem. He was kept on his outpatient dose of metoprolol. On the day of discharge he was predominantly in sinus rhythm on telemetry with heart rates in the 60 to 80 range depending upon activity level. He did not have significant drop in his blood pressure with the combination beta-brigitte and calcium channel brigitte; lisinopril was placed on hold because of the addition of diltiazem and remains on hold at discharge. He was found to have a microcytic iron deficiency anemia. He had a history of significant epistaxis prior to his admission and his anemia was attributed to this. He had repeatedly heme-negative stool during his hospitalization. The subtle findings on CT scan were not deemed to be clinically relevant as he had had esophagogastroduodenoscopy and colonoscopy 7 months ago with no significant pathology identified other than polyps on his colonoscopy. He was placed on iron and coincidental or causative, his loose stools improved somewhat. He will need to have his hemoglobin and hematocrit rechecked in 4-6 weeks. He was maintained on his usual proton pump inhibitor with no complaints of dyspepsia or dysphagia. He had no exacerbation of depression or anxiety on his outpatient SSRI. He is being discharged home in improved condition with instructions to expect his exercise tolerance to remain low given his multilobar pneumonia and level of illness, but no restrictions on activity beyond what he can tolerate. He will be discharged with a ZIO patch to assess for any breakthrough episodes of atrial fibrillation and if so, rate control with current medication. He is discharged on his usual diet. Discharge Medications: 1. Eliquis 5 mg twice daily to start once his INR is less than 2.0. 2. Azithromycin 250 mg daily for 5 additional days. 3. Cefpodoxime 200 mg twice daily for 5 additional days. 4. Diltiazem CD 120 mg daily. 5. Metoprolol succinate 50 mg daily. 6. Ferrous sulfate 325 mg twice daily. 7. Folic acid 1 mg daily. 8. Diphenhydramine 50 mg at bedtime p.r.n. 9. Pantoprazole 40 mg daily. 10. Sumatriptan 50 mg p.r.n. migraine. 11. Sertraline 150 mg daily. He is to have his INR checked at [facility] on FridayApril 06. He has a follow up appointment with Radha Tobar MD, on April 20. 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 Tobar and Dr. Gandhi for arranging this referral. Greater than 30 minutes spent in patient care and preparing discharge. cc: MD Keila Espinal MD
--- NOTE | 2018-05-01 15:42 | ZIOP_ITS ---
DATE OF DICTATION: May 01, 2018 INDICATION: Atrial fibrillation. MONITORING PERIOD: 14 days. Predominant underlying rhythm is atrial fibrillation. Average heart rate whilst in AFib is 89 bpm. Minimum heart rate 40 bpm. Maximum heart rate 201 bpm. Longest episode of atrial fibrillation lasting 2 days and 7 hours with an average heart rate of 80 bp m. Patient in sinus rhythm otherwise. Four patient-triggered events, three of which correspond to atrial fibrillation with RVR. Four diary entries, three of which correspond to atrial fibrillation with RVR and one that correspond s to sinus rhythm. No significant pauses or bradyarrhythmias. Isolated occasional ventricular ectopy. No nonsustained VT. Overall paroxysmal symptomatic atrial fibrillation.
== END 2018-04-04 12:39 | disposition home or self-care (01) | DRG 194 ==
PROVIDERS: Internal Medicine; Nurse Practitioner; Physician Assistant; Admitting Provider Family Medicine; Emergency Provider Emergency Medicine; PCP Family Medicine; Visit Provider Internal Medicine
DX: J18.1 Lobar pneumonia, unspecified organism (principal); I47.2 Ventricular tachycardia; D62 Acute posthemorrhagic anemia; I48.92 Unspecified atrial flutter; R09.02 Hypoxemia; I48.0 Paroxysmal atrial fibrillation; R79.1 Abnormal coagulation profile; T45.515A Adverse effect of anticoagulants, initial encounter; R53.83 Other fatigue; D72.829 Elevated white blood cell count, unspecified; Z79.01 Long term (current) use of anticoagulants; R19.7 Diarrhea, unspecified; R93.3 Abnormal findings on diagnostic imaging of other parts of digestive tract; E86.0 Dehydration; I95.9 Hypotension, unspecified; I10 Essential (primary) hypertension; K21.9 Gastro-esophageal reflux disease without esophagitis; E87.6 Hypokalemia; R63.4 Abnormal weight loss; I08.0 Rheumatic disorders of both mitral and aortic valves; K22.70 Barrett's esophagus without dysplasia; F41.8 Other specified anxiety disorders; I51.7 Cardiomegaly; D50.9 Iron deficiency anemia, unspecified
CPT/HCPCS: 36415 ×8; 80048 ×8; 80076; 86140; 83735 ×7; 82607; 82746; 83540; 83550; 83605; 84443 ×2; 82728; 84484; 85379; 85025 ×8; 85652; 85610 ×9; 85730; 82272; 87324; 83630; 87070; 87205; 87040 ×2; 87329; 71046; 74178; 93306; 94640 ×3; 97530 ×2; 97161 ×2; 99285; 96365; 96367; 93010 ×5; 0296T; J7512 ×2; J1940 ×4; J0456 ×5; J7620 ×3; J0696 ×7; Q9967; 71275; 93005; 93225; 96361; 87177; 99222; 99232; 99233; G8978; J3490

== ENCOUNTER 2018-09-17 12:39 | Outpatient (REF) | payer OTHER, SELFPAY, MEDICARE ==
[2018-09-17 13:30] LABS: HCT 46.2 % (40.0-50.0); HGB 15.3 g/dL (13.5-17.5); Mean Corp. HGB Concentration 33.1 g/dL (32.0-36.0); Mean Corpuscular Hemoglobin 31.4 pg (27.0-33.0); Mean Corpuscular Volume 94.7 fL (80-95); Platelet Count 343 x1000/uL (130-400); RBC 4.88 m/cumm (4.50-6.00); RBC Distribution Width 13.9 % (11.8-14.1); White Blood Cell Count 15.91 k/cumm (4.4-10.8)
[2018-09-17 13:50] LABS: ALT 26 U/L (12-78); AST 17 U/L (15-37); Albumin 3.4 g/dL (3.4-5.0); Alkaline Phosphatase 82 U/L (46-116); Anion Gap 13.5 mmol/L (3-11); BUN 15 mg/dL (7-18); Bilirubin, Total 1.2 mg/dL (0.2-1.0); CO2 26.5 mmol/L (21.0-32.0); CREATININE 1.24 mg/dL (0.70-1.30); Calcium 9.7 mg/dL (8.5-10.1); Chloride 101 mmol/L (98-107); Estimated GFR 58.51 (mL/min/1.73m2); Glucose 142 mg/dL (70-100); NT-proBNP 1955 pg/mL; Potassium 3.8 mmol/L (3.5-5.1); Sodium 141 mmol/L (136-145); Total Protein 6.7 g/dL (6.4-8.2)
== END 2018-09-17 12:59 ==
LOC: NCHCN 12:39
PROVIDERS: PCP Family Medicine; Visit Provider Family Medicine
DX: R06.09 Other forms of dyspnea (principal)
CPT/HCPCS: 80053; 85027; 83880

== ENCOUNTER 2018-09-17 12:54 | Outpatient (CLI) | payer OTHER, SELFPAY, MEDICARE ==
--- NOTE | 2018-09-17 13:05 | DI.RAD_ITS ---
SYMPTOMS/DIAGNOSIS: DYSPNEA ON EXERTION, R06.09, EMPHYSEMA, J43.9, AND INTERSTITIAL LUNG DISEASE, J84.9 PA AND LATERAL CHEST: There is evidence of COPD and diffuse interstitial increase densities are noted. A region of apparent infiltration involving the left lower lobe is identified. There is no pleural effusion. The heart is top limits of normal in size. SUMMARY: Pulmonary changes consistent with COPD and fibrosis. Increased density in the left lower lobe is noted and would be consistent with a superimposed acute pneumonitis.
== END 2018-09-17 13:14 ==
PROVIDERS: PCP Family Medicine; Visit Provider Family Medicine
DX: R06.09 Other forms of dyspnea (principal); J43.9 Emphysema, unspecified; J84.9 Interstitial pulmonary disease, unspecified; J44.9 Chronic obstructive pulmonary disease, unspecified; J84.10 Pulmonary fibrosis, unspecified
CPT/HCPCS: 71046

== ENCOUNTER 2019-04-30 14:54 | Outpatient (REF) | payer OTHER, SELFPAY, MEDICARE | END 2019-04-30 15:14 | LOC: NCHCN 14:54 | PROVIDERS: PCP Family Medicine; Visit Provider Family Medicine | DX: R05 Cough (principal); J84.9 Interstitial pulmonary disease, unspecified | CPT/HCPCS: 87070; 87205 ==

== ENCOUNTER 2019-05-04 19:54 | Inpatient (IN) | payer OTHER, MEDICARE, SELFPAY ==
[2019-05-04] VITALS (9 sets, daily range): BP systolic 116–127; BP diastolic 69–82; PULSE 69–89; RESP 7–23; TEMP 36.8; O2SAT 94–96
--- NOTE | 2019-05-04 20:44 | DI.CT_ITS ---
SYMPTOM/DIAGNOSIS: INCREASING SOB PE CHEST CT: CT angiography was performed with multi slice acquisition and multi planar and 3D reconstruction. Comparison is made with 04/15/18. There is no evidence of a pulmonary embolus. The thoracic aorta is of normal caliber. No aneurysm or dissection is seen. Heart size is within normal limits. No significant pericardial effusion is seen. No findings to suggest right ventricular dysfunction are present. There are mildly enlarged lymph nodes in the mediastinum which are unchanged,.compared to the prior examination. No pleural effusion or pneumothorax is identified. The tracheobronchial tree is unremarkable Extensive septal thickening is seen throughout the lungs consistent with chronic pulmonary fibrosis. Centrilobular and paraseptal emphysematous changes are seen in the lungs. Scattered patchy air space opacities are seen within the lungs, particularly in the bases peripherally. Degenerative changes are seen in the spine. Upper abdominal images show the patient is status post cholecystectomy. IMPRESSION: 1. No evidence of a pulmonary embolus, thoracic aortic dissection or aneurysm. 2. Findings consistent with chronic pulmonary fibrosis. 3. Stable, mildly enlarged lymph nodes in the mediastinum. 4. Patchy aveolar opacities predominantly in the lung bases, this may represent a non infectious aveolitis. Infectious or inflammatory process cannot be excluded.
--- NOTE | 2019-05-04 20:44 | W.ED.GENAD ---
Discharge Plan Disposition Patient Disposition: [facility] INPATIENT Condition: Fair Discharge Details Chief Complaint: RespSymp Clinical Impression: Pneumonia Primary Care Provider: Radha Tobar ED Provider: Deangelo Enriquez [place] Meds and New Rx's Prescriptions: No Action sumatriptan succinate [Imitrex] 50 MG tablet 50 mg PO PRN RF: 0 diphenhydramine HCl [Benadryl] 25 MG capsule 50 mg PO HS RF: 0 pantoprazole 40 MG tablet,delayed release (DR/EC) 40 mg PO DAILY RF: 0 Metoprolol Succinate 50 MG TAB.ER.24H 50 mg PO DAILY RF: 0 sertraline 100 MG tablet 150 mg PO QAM RF: 0 ferrous sulfate 325 MG tablet 325 mg PO BID Qty: 60 RF: 1 diltiazem HCl 120 MG capsule,extended release 24hr 120 mg PO DAILY Qty: 30 RF: 1 folic acid 1 MG tablet 1 mg PO DAILY Qty: 30 RF: 1 Eliquis 5 MG tablet 5 mg PO BID Qty: 60 RF: 1 mycophenolate mofetil 250 mg Capsule 250 mg PO BID RF: 0 amoxicillin-pot clavulanate [Augmentin] 500-125 mg Tablet 1 tab PO BID RF: 0 Medical Decision Making Patient presents to ED for evaluation of increasing shortness of breath and cough. He has no energy and has done nothing but lie in bed for the last few days. He has a history of drug-induced pulmonary fibrosis which is now being treated with CellCept and prednisone. He has been on Augmentin for 4 days. He feels worse and not better. He is afebrile here. He is on 4 L nasal cannula chronically. His vital signs including his pulse ox are good. He does not appear to be in distress. His lungs have crackles throughout but mostly in the base. He has no cough and some wheezing. He does have a history of COPD as well. Will place IV and get EKG and laboratory studies. Will get CT of the chest and while I do not think this is PE we will get CT with contrast. EKG is rate controlled A. fib. His white count is normal. Potassium a little low at 3.2 and will be replaced. Kidney function is normal. Troponin negative. Lactic acid normal. CT scan shows new bibasilar alveolar infiltrates that could be infectious or worsening of his chronic disease. Given his new cough, increased shortness of breath, increased weakness and fatigue I would favor pneumonia. He is immunosuppressed with CellCept and prednisone which is likely why he does not have a white count or fever. Patient remains hemodynamically stable. I have ordered Zosyn and doxycycline IV. Case discussed with hospitalist who agrees with admission. Lab Data Lab results reviewed: Yes I reviewed the patient's lab results. ECG Data Attestation: I personally reviewed and interpreted this ECG (s) as follows: Prior ECG tracings: available for review Interpretation: Atrial fibrillation that is rate controlled at 84 with normal axis and intervals. Nonspecific ST changes that are not significantly different from previous. HPI General Mode of arrival: ambulatory. Date/Time Provider Initiated Documentation: 05/04/19 20:16. Limitations to Documentation: no limitations. Information obtained by: patient and family. HPI Narrative: Patient presents to ED with increasing shortness of breath. He has a cough productive of whitish to cream colored sputum.. He has history of COPD as well as interstitial fibrosis. He has been started on CellCept in addition to the prednisone that he normally is on. That was about 4 - 6 weeks ago. The interstitial fibrosis is felt to be due to Multaq that he was on for atrial fib. His cough is deep and causes pain in both sides of his chest with coughing. He has had no fever. He is extremely fatigued and lacks energy. He has no appetite. He has not really had anything to eat over the last few days. He has been trying to stay hydrated. He has no nausea, vomiting or diarrhea. He has abdominal discomfort but cannot really describe it. He has a burning sensation in his chest for the last week. He saw his primary care doctor on Friday. He was started on Augmentin at that time. He is worse and was convinced to come to the ED by his . He is unable to do anything without getting extremely short of breath and fatigue. Related Data Home Medications Medication Instructions Recorded Confirmed diphenhydramine HCl [Benadryl] 50 mg PO HS tab-cap 03/01/13 05/04/19 sumatriptan succinate [Imitrex] 50 mg PO PRN 03/01/13 05/04/19 sertraline 150 mg PO QAM 03/26/15 05/04/19 Metoprolol Succinate 50 mg PO DAILY tab-cap 03/19/18 05/04/19 pantoprazole 40 mg PO DAILY tab-cap 03/19/18 05/04/19 apixaban [Eliquis] 5 mg PO BID #60 tablet 04/04/18 05/04/19 diltiazem HCl 120 mg PO DAILY #30 capcr 04/04/18 05/04/19 ferrous sulfate 325 mg PO BID #60 tab 04/04/18 05/04/19 folic acid 1 mg PO DAILY #30 tab 04/04/18 05/04/19 amoxicillin-pot clavulanate 1 tab PO BID 05/04/19 05/04/19 [Augmentin] mycophenolate mofetil 250 mg PO BID 05/04/19 05/04/19 Previous Rx's Medication Instructions Recorded apixaban [Eliquis] 5 mg PO BID #60 tablet 04/04/18 diltiazem HCl 120 mg PO DAILY #30 capcr 04/04/18 ferrous sulfate 325 mg PO BID #60 tab 04/04/18 folic acid 1 mg PO DAILY #30 tab 04/04/18 Allergies Allergy/AdvReac Type Severity Reaction Status Date / Time No Known Allergies Allergy Unverified 04/11/18 15:03 General Stated Complaint: RespSymp JAYME: 3 Review of Systems Review of Systems 09/13 Review of Systems completed and is negative except as stated above in HPI (Systems reviewed: Const, Eyes, ENT, Resp, CV, GI, , MSK, Skin, Neuro) PFSH Medical History COPD (chronic obstructive pulmonary disease) (Chronic) HTN (hypertension) (Chronic) Pulmonary fibrosis (Chronic) Atrial fibrillation (Chronic) GERD (Chronic) IRRITABLE BOWEL (Chronic) Microscopic colitis (Chronic) Migraine (Chronic) 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 Sister No problems noted. Social History Smoking/Tobacco Use Status: Former Tobacco Use Alcohol Intake: never Drug use: Never Substance use type: does not use Do you feel safe at home: Yes Do you feel safe in your relationship?: Yes Exam Narrative Exam Narrative: Vitals: Afebrile. Vitals are normal. Const: WDWN older appearing than stated age in NAD. HEENT: NC/AT. Normal facial exam. Eyes: Normal conjunctiva and sclera. Neck: Supple. Trachea midline. Lungs: Appears to have normal respiratory effort. There is fair air exchange. No wheezing heard but crackles throughout especially in the bases. Cor: Irr/Irr without murmur/gallop. Rate controlled. Good radial pulses. GI: Soft. NT/ND. No guarding or rebound. Neuro: A+O x 3. CN grossly in tact. Good strength and no focal deficit. Ext: No C/C/E. No deformity or tenderness. No calf tenderness. Skin: Warm and dry without rash. Course Vital Signs Temperature 98.2 F 05/04/19 20:07 Pulse 79 05/04/19 20:07 Respiratory Rate 16 05/04/19 20:07 Blood Pressure 116/82 05/04/19 20:07 Pulse Oximetry 96 05/04/19 20:07 Temperature 98.2 F 05/04/19 20:07 Temperature Source Temporal Artery Scan 05/04/19 20:07 Pulse 79 05/04/19 20:07 Respiratory Rate 16 05/04/19 20:07 Respiratory Effort 05/04/19 20:25 Blood Pressure 116/82 05/04/19 20:07 Blood Pressure Position Supine 05/04/19 20:07 Pulse Oximetry 96 05/04/19 20:07 Oxygen Delivery Method Room Air 05/04/19 20:07 Oxygen Flow Rate 0 05/04/19 20:07
[2019-05-04] MEDS: Albuterol 2.5 MG/3 ML INH SOLN VIAL UPD (20:56)
[2019-05-04] MEDS: Normal Saline 1,000 ML 150 ML IV (20:58)
[2019-05-04 21:03] LABS: Abs Immature Grans 0.09 k/cumm (0.0-0.09); Absolute Basophil Count 0.02 k/cumm (0.0-0.2); Absolute Lymphocyte Count 0.69 k/cumm (1.2-3.4); Absolute Monocyte Count 0.69 k/cumm (0.11-0.7); Absolute Neutrophil Count 6.49 k/cumm (1.2-6.7); Basophils % 0.3; HCT 46.8 % (40.0-50.0); HGB 15.2 g/dL (13.5-17.5); Immature Grans % 1.1; Lymphocytes % 8.6; Mean Corp. HGB Concentration 32.5 g/dL (32.0-36.0); Mean Corpuscular Volume 92.5 fL (80-95); Mean Platelet Volume 9.8 fL (8.0-11.0); Monocytes % 8.6; Neutrophils % 81.4; Platelet Count 176 x1000/uL (130-400); RBC 5.06 m/cumm (4.50-6.00); RBC Distribution Width 14.9 % (11.8-14.1); White Blood Cell Count 7.98 k/cumm (4.4-10.8)
[2019-05-04 21:18] LABS: ALT 24 U/L (12-78); AST 20 U/L (15-37); Albumin 3.4 g/dL (3.4-5.0); Alkaline Phosphatase 77 U/L (46-116); Anion Gap 8.1 mmol/L (3-11); BUN 9 mg/dL (7-18); Bilirubin, Total 1.2 mg/dL (0.2-1.0); CO2 27.9 mmol/L (21.0-32.0); CREATININE 1.06 mg/dL (0.70-1.30); Calcium 8.9 mg/dL (8.5-10.1); Chloride 102 mmol/L (98-107); Glucose 126 mg/dL (70-100); Potassium 3.2 mmol/L (3.5-5.1); Sodium 138 mmol/L (136-145); Total Protein 6.9 g/dL (6.4-8.2)
[2019-05-04 21:19] LABS: Troponin I < 0.02 ng/mL (0.00-0.06)
[2019-05-04 21:20] LABS: Magnesium 2.2 mg/dL (1.8-2.4)
[2019-05-04] MEDS: Omnipaque 350 MG/ML 100 ML BTL IV (21:34)
--- NOTE | 2019-05-04 22:22 | DI.VRAD_ITS ---
EXAM: CT Angiography Chest With Contrast EXAM DATE/TIME: 05/04/2019 8:47 PM CLINICAL HISTORY: 64 years old, male; Signs and symptoms; Shortness of breath; Patient HX: Increasing SOB; Additional info: HX of copd and pulmonary fibrosis TECHNIQUE: Imaging protocol: Axial computed tomographic angiography images of the chest with intravenous contrast using CT angiography protocol. Coronal and sagittal reformatted images were created and reviewed. 3D rendering: MIP reconstructed images were created and reviewed. Contrast material: OMNIPAQUE 350; Contrast volume: 84 ml; Contrast route: IV; COMPARISON: CT CHEST FOR PULMONARY EMBOLUS 03/27/2018 12:02 PM FINDINGS: Pulmonary arteries: The pulmonary arteries enhance appropriately with no evidence of pulmonary embolism. Aorta: The aorta enhances appropriately without evidence of dissection or aneurysm. Mild aortic ectasia and tortuosity. Thyroid: The visualized thyroid gland demonstrates no gross abnormality. Lungs: No tracheobronchial abnormalities. There is extensive peripheral interlobular and intralobular septal thickening consistent with the patient's history of chronic pulmonary fibrosis, with early peripheral fibrocystic changes in the lung bases and moderate apical fibrocystic changes, right greater than left. There are patchy elements with associated reticulonodular and alveolar density in the peripheral lung bases which could represent active non-infectious alveolitis related to chronic interstitial lung disease. Elements of infectious pulmonary infiltrate or not excluded based on imaging appearance. No evidence of abscess or empyema. No discrete pulmonary mass lesions are identified. Prior pleurodesis in the left lung base. Pleural space: No pleural effusion. No pneumothorax. Heart: Heart size normal. No pericardial effusion. Mediastinum: The esophagus is largely contracted but demonstrates no gross abnormality. Liver: Mild fatty infiltration of the liver . No focal hepatic lesions. Prior cholecystectomy with expected mild postoperative dilatation of the biliary system. Lymph nodes: No supraclavicular or axillary adenopathy. Few slightly prominent mediastinal nodes are identified in the pretracheal retrocaval distribution measuring up to 8 mm short axis with additional mildly enlarged nodes in the AP window measuring up to 12 mm short axis in the subcarinal distribution measuring up to 12 mm short axis. Slightly prominent bilateral hilar nodes as well. Bones/joints: No acute osseous abnormalities are identified. Soft tissues: The soft tissues of the chest wall demonstrate no gross abnormality. IMPRESSION: 1. No evidence of pulmonary embolism or aortic dissection. 2. Chronic interstitial fibrosis again noted. 3. Patchy alveolar densities predominantly in a basilar distribution may represent active noninfectious alveolitis related to chronic interstitial lung disease. Elements of infectious pulmonary infiltrate or not excluded. No evidence of abscess or empyema. 4. Enlarged mediastinal nodes again noted, similar to prior exam 03/27/2018. These are nonspecific. 5. Fatty liver. Dictated and Authenticated by: Viraj Becerra MD. Ordering:ESMER Bright MD
[2019-05-04] MEDS: DOXYCYCLINE 100 MG in Normal Saline 100 ML IVPB (23:03)
[2019-05-04] MEDS: Potassium Chloride 20 MEQ TABCR 40 MEQ PO (23:04)
--- NOTE | 2019-05-04 23:20 | HPE_ITS ---
Date of service: 05/04/19 Time of Service: 23:10 Assessment and Plan (1) COPD (chronic obstructive pulmonary disease): Current visit: Yes Status: Chronic COPD exacerbation, with apparent pneumonia. Will conttinue antibiotics, inhsalers and will increase steroids (note he is on prednisone 20 qd at baseline). Reviewed ADs, requests full code. History of Present Illness Chief Complaint: SOB Narrative: 64 male with COPD, pulmonary fibrosis, here with one week cough and SOB. Saw PCP 4 days ago, started Augmentin without help. In ER CT shows bibasilar lesions c/w pneumonitis. Given Zosyn and Doxy and admi tted for further management. 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 Sister No problems noted. Social History Smoking/Tobacco Use Status: Former Tobacco Use Alcohol Intake: never Drug use: Never Substance use type: does not use Do you feel safe at home: Yes Do you feel safe in your relationship?: Yes Meds Home Medications Medication Instructions Recorded Confirmed Type diphenhydramine HCl [Benadryl] 50 mg PO HS tab-cap 03/01/13 05/04/19 History sumatriptan succinate [Imitrex] 50 mg PO PRN 03/01/13 05/04/19 History sertraline 150 mg PO QAM 03/26/15 05/04/19 History Metoprolol Succinate 50 mg PO DAILY tab-cap 03/19/18 05/04/19 History pantoprazole 40 mg PO DAILY tab-cap 03/19/18 05/04/19 History apixaban [Eliquis] 5 mg PO BID #60 tablet 04/04/18 05/04/19 Rx diltiazem HCl 120 mg PO DAILY #30 capcr 04/04/18 05/04/19 Rx ferrous sulfate 325 mg PO BID #60 tab 04/04/18 05/04/19 Rx folic acid 1 mg PO DAILY #30 tab 04/04/18 05/04/19 Rx amoxicillin-pot clavulanate 1 tab PO BID 05/04/19 05/04/19 History [Augmentin] mycophenolate mofetil 250 mg PO BID 05/04/19 05/04/19 History Allergies Allergy/AdvReac Type Severity Reaction Status Date / Time No Known Allergies Allergy Unverified 04/11/18 15:03 Exam Narrative Exam Narrative: 127/69, 89, 36.8, 18. HEENT unremarkable; neck supple; lungs diffuse wheeze; heart distamt, irr/irrr; abd: soft, NT; /rectal deferred; extr: no edema; neuro Ox3, non-focal Results Labs : 05/04/19 20:50 05/04/19 20:50 Laboratory Results - last 24 hr 05/04/19 05/04/19 05/04/19 20:50 20:50 20:50 WBC 7.98 RBC 5.06 Hgb 15.2 Hct 46.8 MCV 92.5 MCH 30.0 MCHC 32.5 RDW 14.9 H Plt Count 176 MPV 9.8 Immature Gran % 1.1 Neutrophils % 81.4 Lymphocytes % 8.6 Monocytes % 8.6 Eosinophils % 0.0 Basophils % 0.3 Absolute Neutrophils 6.49 Absolute Lymphocytes 0.69 L Absolute Monocytes 0.69 Absolute Eosinophils 0.00 Absolute Basophils 0.02 Sodium 138 Potassium 3.2 L Chloride 102 Carbon Dioxide 27.9 Anion Gap 8.1 BUN 9 Creatinine 1.06 Estimated GFR/1.73 m2 >= 60.00 Glucose 126 H Lactate Calcium 8.9 Magnesium 2.2 Total Bilirubin 1.2 H AST 20 ALT 24 Alkaline Phosphatase 77 Troponin I < 0.02 Total Protein 6.9 Albumin 3.4 05/04/19 20:50 WBC RBC Hgb Hct MCV MCH MCHC RDW Plt Count MPV Immature Gran % Neutrophils % Lymphocytes % Monocytes % Eosinophils % Basophils % Absolute Neutrophils Absolute Lymphocytes Absolute Monocytes Absolute Eosinophils Absolute Basophils Sodium Potassium Chloride Carbon Dioxide Anion Gap BUN Creatinine Estimated GFR/1.73 m2 Glucose Lactate 1.0 Calcium Magnesium Total Bilirubin AST ALT Alkaline Phosphatase Troponin I Total Protein Albumin Last Vital Signs Temp 36.8 C 05/04/19 20:07 Pulse 89 05/04/19 22:16 Resp 16 05/04/19 22:16 BP 127/69 05/04/19 22:16 Pulse Ox 94 L 05/04/19 22:16
[2019-05-05] VITALS (8 sets, daily range): BP systolic 124–144; BP diastolic 80–85; PULSE 72–97; RESP 2–20; TEMP 36.1–37.3; O2SAT 91–98
[2019-05-05] MEDS: Normal Saline 1,000 ML 150 ML IV ×3 (00:22→16:38)
[2019-05-05] MEDS: PIPERACILLIN/TAZO 4.5 GM in Normal Saline 100 ML IVPB ×5 (00:23→23:26)
[2019-05-05] MEDS: methylPREDNISolone SUCC 40 MG VIAL IVP ×3 (01:49→17:18)
--- NOTE | 2019-05-05 07:44 | PDOC.CMIN ---
- If Service Date Differs Date of service: 05/05/19 Time of Service: 07:44 Care Management Initial Assess REASON FOR HOSPITALIZATION:: COPD PAST MEDICAL HISTORY/PAST SURGICAL HISTORY:: Medical History: COPD (chronic obstructive pulmonary disease) (Chronic). HTN (hypertension) (Chronic). Pulmonary fibrosis (Chronic). Atrial fibrillation (Chronic). GERD (Chronic). IRRITABLE BOWEL (Chronic). Microscopic colitis (Chronic). Migraine (Chronic). 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 Surgical History: Cholecystectomy (Chronic). CARDIAC ABLATION (Inactive 06/06/11) PREVIOUS FUNCTIONAL STATUS/SOCIAL/FAMILY SUPPORTS:: Kennedy lives with his and youngest son Zachary in a single family home in [place], [place] 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 Kennedy has 3 children, all of whom live fairly close by. He also has many good friends and a strong support system in the community. He is oxygen dependent at 4 liters continuously but is independent with all of his ADLs and care. CURRENT FUNCTIONAL STATUS:: Kennedy was sitting up in bed visiting with a friend when CM came to see him. He was smiling and laughing and engaged readily in conversation. He stated that he would like a small portable oxygen concentrator for use at home. He needs oxygen 24/7 and states he feels that a concentrator would give him greater mobility. Kennedy also stated he hopes to be discharged soon. ADVANCE DIRECTIVES:: On file at [facility] Has patient been provided with information about the portal?: No (not interested) Did the patient sign up for the portal?: No CODE STATUS:: Full Code INSURANCE COVERAGE / FINANCIAL ISSUES:: Medicare. [facility] CURRENT HOME/COMMUNITY SERVICES/EQUIPMENT:: Has home oxygen with [facility] [place] PRIMARY CARE PHYSICIAN:: Radha Tobar POTENTIAL DISCHARGE NEEDS:: Follow up appointment with PCP and discharge plan of care. PATIENT/FAMILY EDUCATION NEEDS:: Discharge plan, limitations, follow up plan of care, Ask Me Three. ANTICIPATED BARRIERS TO DISCHARGE:: none TRANSPORTATION:: Kennedy will be discharged via private automobile with family when ready PLAN:: Kennedy is receiving treatment to address his COPD exaccerbation. He will likely return home with no additional services. CM will continue to provide support to patient, family, care team and discharge plan of care.
[2019-05-05] MEDS: Albuterol 2.5 MG/3 ML INH SOLN VIAL UPD (07:50)
[2019-05-05] MEDS: Sertraline 50 MG TAB 150 MG PO (08:00)
[2019-05-05] MEDS: Folic Acid 1 MG TAB PO (08:01)
[2019-05-05] MEDS: Apixaban 5 MG TAB PO ×2 (08:01→20:21)
[2019-05-05] MEDS: Metoprolol CR 50 MG TABCR PO (08:01)
[2019-05-05] MEDS: Ferrous Sulfate 325 MG TAB PO ×2 (08:01→20:21)
--- NOTE | 2019-05-05 08:01 | INITIAL_ITS ---
- If Service Date Differs Date of service: 05/05/19 Time of Service: 07:44 Care Management Initial Assess REASON FOR HOSPITALIZATION:: COPD PAST MEDICAL HISTORY/PAST SURGICAL HISTORY:: Medical History: COPD (chronic obstructive pulmonary disease) (Chronic). HTN (hypertension) (Chronic). Pulmonary fibrosis (Chronic). Atrial fibrillation (Chronic). GERD (Chronic). IRRITABLE BOWEL (Chronic). Microscopic colitis (Chronic). Migraine (Chronic). 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 Surgical History: Cholecystectomy (Chronic). CARDIAC ABLATION (Inactive 06/06/11) PREVIOUS FUNCTIONAL STATUS/SOCIAL/FAMILY SUPPORTS:: Kennedy lives with his and youngest son Zachary in a single family home in [place], [place] 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 Kennedy has 3 children, all of whom live fairly close by. He also has many good friends and a strong support system in the community. He is oxygen dependent at 4 liters continuously but is independent with all of his ADLs and care. CURRENT FUNCTIONAL STATUS:: Kennedy was sitting up in bed visiting with a friend when CM came to see him. He was smiling and laughing and engaged readily in conversation. He stated that he would like a small portable oxygen concentrator for use at home. He needs oxygen 24/7 and states he feels that a concentrator would give him greater mobility. Kennedy also stated he hopes to be discharged soon. ADVANCE DIRECTIVES:: On file at [facility] Has patient been provided with information about the portal?: No (not interested) Did the patient sign up for the portal?: No CODE STATUS:: Full Code INSURANCE COVERAGE / FINANCIAL ISSUES:: Medicare. [facility] CURRENT HOME/COMMUNITY SERVICES/EQUIPMENT:: Has home oxygen with [facility] PRIMARY CARE PHYSICIAN:: Radha Tobar POTENTIAL DISCHARGE NEEDS:: Follow up appointment with PCP and discharge plan of care. PATIENT/FAMILY EDUCATION NEEDS:: Discharge plan, limitations, follow up plan of care, Ask Me Three. ANTICIPATED BARRIERS TO DISCHARGE:: none TRANSPORTATION:: Kennedy will be discharged via private automobile with family when ready PLAN:: Kennedy is receiving treatment to address his COPD exaccerbation. He will likely return home with no additional services. CM will continue to provide support to patient, family, care team and discharge plan of care.
[2019-05-05] MEDS: dilTIAZem CD 120 MG CAPCR PO (08:02)
[2019-05-05] MEDS: Pantoprazole 40 MG TABCR PO (08:02)
[2019-05-05] MEDS: Normal Saline Flush 10 ML SYR IVP ×2 (10:07→17:18)
[2019-05-05 11:10] LABS: Absolute Basophil Count 0.04 k/cumm (0.0-0.2); Absolute Lymphocyte Count 0.67 k/cumm (1.2-3.4); Absolute Monocyte Count 0.44 k/cumm (0.11-0.7); Absolute Neutrophil Count 7.58 k/cumm (1.2-6.7); Basophils % 0.5; HGB 14.5 g/dL (13.5-17.5); Immature Grans % 1.1; Lymphocytes % 7.6; Mean Corpuscular Hemoglobin 30.7 pg (27.0-33.0); Mean Corpuscular Volume 93.2 fL (80-95); Mean Platelet Volume 9.9 fL (8.0-11.0); Neutrophils % 85.8; Platelet Count 190 x1000/uL (130-400); RBC 4.72 m/cumm (4.50-6.00); RBC Distribution Width 14.9 % (11.8-14.1); White Blood Cell Count 8.83 k/cumm (4.4-10.8)
[2019-05-05 11:21] LABS: Anion Gap 7.7 mmol/L (3-11); BUN 15 mg/dL (7-18); CO2 26.3 mmol/L (21.0-32.0); CREATININE 0.95 mg/dL (0.70-1.30); Calcium 8.8 mg/dL (8.5-10.1); Chloride 105 mmol/L (98-107); Glucose 156 mg/dL (70-100); Magnesium 2.3 mg/dL (1.8-2.4); Potassium 3.9 mmol/L (3.5-5.1); Sodium 139 mmol/L (136-145)
[2019-05-05] MEDS: Budesonide/Formoterol 160/4.5 6 GM 60 PUFF INH IH ×2 (11:32→20:22)
--- NOTE | 2019-05-05 12:04 | W.PM.PROGNOT ---
Date of Service Date of service: 05/05/19 Time of Service: 12:04 Assessment and Plan (1) CAP (community acquired pneumonia): Current visit: Yes Status: Acute Checking legionella, strep urine AGs, mycoplasma, sputum cx. Continue empiric doxycycline + ceftriaxone, nebs, IV steroids. I added antitussives and symbicort. Seems to be improving. (2) Acute exacerbation of chronic obstructive pulmonary disease (COPD): Current visit: Yes Status: Acute Due to above - as above. No change to steroid dose today. (3) Pulmonary fibrosis: Current visit: Yes Status: Chronic Chronic. 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 Continue maintenance dose of cellcept. (4) Chronic respiratory failure with hypoxia: Current visit: Yes Status: Chronic Multifactorial - due to pulmonary fibrosis/ILD, COPD. At baseline. Will continue to monitor. (5) Atrial fibrillation with controlled ventricular rate: Current visit: No Status: Chronic Continue eliquis, diltiazem CD, toprol XL. (6) Discharge planning issues: Current visit: Yes Status: Acute Full code Continues to require hospitalization (7) DVT prophylaxis: Current visit: Yes Status: Acute On therapeutic eliquis Subjective Interval history since last seen: Mr Worthington is doing better today, though he still has been better. He endorses dizziness when he gets up and feels a little thirsty, denies chest pain unless he coughs (he does have a productive cough), his wheezing and cough are getting better, Denies nausea. Exam Narrative Exam Narrative: General: Very pleasant obeses Caucasina male, A&Ox3, NAD, sitting up in bed, no dyspnea/tachypnea observed HEENT: EOMI, dry MM Heart: irregularly irregular rhythm, no m/r/g Lungs: wheezing on expiration diffusely bilaterally; ?crackles at B bases GI: abdomen is soft, nontender, nondistended Extremities: no e/c/c BLE's Objective Objective Clinical Data: Abnormal lab results 05/04/19 05/04/19 05/05/19 Range/Units 20:50 20:50 11:00 RDW 14.9 H (11.8-14.1) % Absolute Neutrophils (1.2-6.7) k/cumm Absolute Lymphocytes 0.69 L (1.2-3.4) k/cumm Potassium 3.2 L (3.5-5.1) mmol/L Glucose 126 H 156 H (70-100) mg/dL Total Bilirubin 1.2 H (0.2-1.0) mg/dL 05/05/19 Range/Units 11:00 RDW 14.9 H (11.8-14.1) % Absolute Neutrophils 7.58 H (1.2-6.7) k/cumm Absolute Lymphocytes 0.67 L (1.2-3.4) k/cumm Potassium (3.5-5.1) mmol/L Glucose (70-100) mg/dL Total Bilirubin (0.2-1.0) mg/dL Vital Signs Temperature 36.3 C L 05/05/19 07:13 Temperature Source Tympanic 05/05/19 07:13 Pulse 72 05/05/19 07:13 Pulse Rhythm Regular 05/05/19 09:30 Pulse 86 05/04/19 22:16 Respiratory Rate 14 05/05/19 07:13 Respiratory Effort Short of Breath 05/05/19 09:30 Respiratory Depth Normal 05/05/19 09:30 Respiratory Pattern Normal 05/05/19 09:30 Blood Pressure 132/85 05/05/19 07:13 Blood Pressure Mean 84 05/04/19 22:16 Blood Pressure Position Supine 05/04/19 20:07 Pulse Oximetry 92 L 05/05/19 07:50 Oxygen Delivery Method Nasal Cannula 05/05/19 07:50 Oxygen Flow Rate 3 05/05/19 07:50 Pain Level 0 05/05/19 07:13 Intake & Output 05/04/19 05/05/19 05/05/19 23:59 11:59 23:59 Intake Total 2170.0 / 2170.0 Output Total 600 / 600 Balance 1570.0 / 1570.0 Weight 108.862 kg 108.862 kg Intake: IV 1810.0 / 1810.0 Oral 360 / 360 Output: Urine 600 / 600 Other: Urine Color Straw Urine Appearance Clear Urine Odor Normal Voiding Methods Toilet Laboratory Results WBC 8.83 k/cumm (4.4-10.8) 05/05/19 11:00 RBC 4.72 m/cumm (4.50-6.00) 05/05/19 11:00 Hgb 14.5 g/dL (13.5-17.5) 05/05/19 11:00 Hct 44.0 % (40.0-50.0) 05/05/19 11:00 MCV 93.2 fL (80-95) 05/05/19 11:00 MCH 30.7 pg (27.0-33.0) 05/05/19 11:00 MCHC 33.0 g/dL (32.0-36.0) 05/05/19 11:00 RDW 14.9 % (11.8-14.1) H 05/05/19 11:00 Plt Count 190 x1000/uL (130-400) 05/05/19 11:00 MPV 9.9 fL (8.0-11.0) 05/05/19 11:00 Immature Gran % 1.1 05/05/19 11:00 Neutrophils % 85.8 05/05/19 11:00 Lymphocytes % 7.6 05/05/19 11:00 Monocytes % 5.0 05/05/19 11:00 Eosinophils % 0.0 05/05/19 11:00 Basophils % 0.5 05/05/19 11:00 Absolute Neutrophils 7.58 k/cumm (1.2-6.7) H 05/05/19 11:00 Absolute Lymphocytes 0.67 k/cumm (1.2-3.4) L 05/05/19 11:00 Absolute Monocytes 0.44 k/cumm (0.11-0.7) 05/05/19 11:00 Absolute Eosinophils 0.00 k/cumm (0.0-0.7) 05/05/19 11:00 Absolute Basophils 0.04 k/cumm (0.0-0.2) 05/05/19 11:00 Sodium 139 mmol/L (136-145) 05/05/19 11:00 Potassium 3.9 mmol/L (3.5-5.1) D 05/05/19 11:00 Chloride 105 mmol/L (98-107) 05/05/19 11:00 Carbon Dioxide 26.3 mmol/L (21.0-32.0) 05/05/19 11:00 Anion Gap 7.7 mmol/L (3-11) 05/05/19 11:00 BUN 15 mg/dL (7-18) D 05/05/19 11:00 Creatinine 0.95 mg/dL (0.70-1.30) 05/05/19 11:00 Estimated GFR/1.73 m2 >= 60.00 (mL/min/1.73m2) 05/05/19 11:00 Glucose 156 mg/dL (70-100) H 05/05/19 11:00 Lactate 1.0 mmol/l (0.6-1.4) 05/04/19 20:50 Calcium 8.8 mg/dL (8.5-10.1) 05/05/19 11:00 Magnesium 2.3 mg/dL (1.8-2.4) 05/05/19 11:00 Total Bilirubin 1.2 mg/dL (0.2-1.0) H 05/04/19 20:50 AST 20 U/L (15-37) 05/04/19 20:50 ALT 24 U/L (12-78) 05/04/19 20:50 Alkaline Phosphatase 77 U/L (46-116) 05/04/19 20:50 Troponin I < 0.02 ng/mL (0.00-0.06) 05/04/19 20:50 Total Protein 6.9 g/dL (6.4-8.2) 05/04/19 20:50 Albumin 3.4 g/dL (3.4-5.0) 05/04/19 20:50
[2019-05-05] MEDS: Albuterol/Ipratropium 3 ML UPD VIAL UPD ×3 (12:30→23:59)
[2019-05-05] MEDS: DOXYCYCLINE 100 MG in Normal Saline 100 ML IVPB ×2 (13:08→23:58)
[2019-05-05] MEDS: Benzonatate 100 MG CAP PO ×2 (14:14→20:22)
--- NOTE | 2019-05-05 15:07 | CHAPLAIN ---
I had a short visit with Neil as he had company. I explained my role and offered support.
[2019-05-05] MEDS: guaiFENesin 600 MG TABCR PO (20:22)
[2019-05-05] MEDS: diphenhydrAMINE 25 MG CAP 50 MG PO (21:37)
[2019-05-06] VITALS (12 sets, daily range): BP systolic 127–151; BP diastolic 80–93; PULSE 67–105; RESP 4–20; TEMP 36.1–36.6; O2SAT 94–98
[2019-05-06] MEDS: Normal Saline 1,000 ML 150 ML IV ×2 (02:15→09:33)
[2019-05-06] MEDS: methylPREDNISolone SUCC 40 MG VIAL IVP ×2 (02:16→09:38)
[2019-05-06] MEDS: Albuterol/Ipratropium 3 ML UPD VIAL UPD ×3 (05:28→23:45)
[2019-05-06] MEDS: PIPERACILLIN/TAZO 4.5 GM in Normal Saline 100 ML IVPB ×3 (05:28→16:58)
[2019-05-06 06:52] LABS: Abs Immature Grans 0.11 k/cumm (0.0-0.09); Absolute Basophil Count 0.01 k/cumm (0.0-0.2); Absolute Lymphocyte Count 1.03 k/cumm (1.2-3.4); Absolute Monocyte Count 0.39 k/cumm (0.11-0.7); Absolute Neutrophil Count 13.34 k/cumm (1.2-6.7); Basophils % 0.1; HGB 13.5 g/dL (13.5-17.5); Immature Grans % 0.7; Lymphocytes % 6.9; Mean Corp. HGB Concentration 32.1 g/dL (32.0-36.0); Mean Corpuscular Hemoglobin 29.9 pg (27.0-33.0); Mean Corpuscular Volume 93.1 fL (80-95); Mean Platelet Volume 10.2 fL (8.0-11.0); Monocytes % 2.6; Neutrophils % 89.7; Platelet Count 192 x1000/uL (130-400); RBC 4.51 m/cumm (4.50-6.00); RBC Distribution Width 14.9 % (11.8-14.1); White Blood Cell Count 14.87 k/cumm (4.4-10.8)
[2019-05-06 07:02] LABS: Anion Gap 12.1 mmol/L (3-11); BUN 15 mg/dL (7-18); CO2 24.9 mmol/L (21.0-32.0); CREATININE 0.92 mg/dL (0.70-1.30); Calcium 8.8 mg/dL (8.5-10.1); Chloride 103 mmol/L (98-107); Glucose 148 mg/dL (70-100); Magnesium 2.1 mg/dL (1.8-2.4); Potassium 3.2 mmol/L (3.5-5.1); Sodium 140 mmol/L (136-145)
[2019-05-06] MEDS: guaiFENesin 600 MG TABCR PO ×2 (08:15→20:15)
[2019-05-06] MEDS: Pantoprazole 40 MG TABCR PO (08:15)
[2019-05-06] MEDS: Ferrous Sulfate 325 MG TAB PO ×2 (08:15→20:15)
[2019-05-06] MEDS: Folic Acid 1 MG TAB PO (08:15)
[2019-05-06] MEDS: dilTIAZem CD 120 MG CAPCR PO (08:15)
[2019-05-06] MEDS: Apixaban 5 MG TAB PO ×2 (08:15→20:15)
[2019-05-06] MEDS: Benzonatate 100 MG CAP PO ×3 (08:16→20:15)
[2019-05-06] MEDS: Metoprolol CR 50 MG TABCR PO (08:16)
[2019-05-06] MEDS: Sertraline 50 MG TAB 150 MG PO (08:16)
[2019-05-06] MEDS: Budesonide/Formoterol 160/4.5 6 GM 60 PUFF INH IH ×3 (09:19→20:14)
[2019-05-06] MEDS: Potassium Chloride 20 MEQ TABCR 40 MEQ PO (11:15)
[2019-05-06] MEDS: DOXYCYCLINE 100 MG in Normal Saline 100 ML IVPB ×2 (11:15→23:44)
--- NOTE | 2019-05-06 11:46 | W.PM.PROGNOT ---
Date of Service Date of service: 05/06/19 Time of Service: 11:47 Assessment and Plan (1) Chest pain at rest: Current visit: Yes Status: Acute I am concerned for episodic rapid afib and unstable angina, especially with addition of a long acting bronchodilator. Will place on tele, obtain serial EKG's and troponins. (2) CAP (community acquired pneumonia): Current visit: Yes Status: Acute Clinically improved. Continue doxycycline/rocephin. Start to taper IV steroids. Continue antitussives and symbicort. (3) Acute exacerbation of chronic obstructive pulmonary disease (COPD): Current visit: Yes Status: Acute Due to above - as above. Taper steroids. (4) Pulmonary fibrosis: Current visit: Yes Status: Chronic Chronic. 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 Continue maintenance dose of cellcept. (5) Chronic respiratory failure with hypoxia: Current visit: Yes Status: Chronic Multifactorial - due to pulmonary fibrosis/ILD, COPD. At baseline. Will continue to monitor. (6) Atrial fibrillation with controlled ventricular rate: Current visit: No Status: Chronic Continue eliquis, diltiazem CD, toprol XL. Being placed on tele, due to CP, as above (7) Discharge planning issues: Current visit: Yes Status: Acute Full code Continues to require hospitalization may require a stress test - hopefully, as outpatient (8) DVT prophylaxis: Current visit: Yes Status: Acute On therapeutic eliquis Subjective Interval history since last seen: Wheezing is a lot better. Cough is more today, but it's dry. Overall, he feels a lot better. Denies dizziness. Endorses occasional recurrent L-sided chest pains, lasting 15-20 seconds, not related to coughing, different from pains from reflux that he sometimes gets. He had not had a stress test in a long time. Exam Narrative Exam Narrative: General: Very pleasant obeses Caucasina male, A&Ox3, NAD, sitting up in a chair, fluently conversing with me, no dyspnea noted HEENT: EOMI, MMM Heart: irregularly irregular rhythm, no m/r/g Lungs: significant improvement in rhonchi B; very quiet crackles auscultated. GI: abdomen is soft, nontender, nondistended Extremities: no e/c/c BLE's Objective Objective Clinical Data: Abnormal lab results 05/06/19 05/06/19 Range/Units 06:35 06:35 WBC 14.87 H D (4.4-10.8) k/cumm RDW 14.9 H (11.8-14.1) % Absolute Neutrophils 13.34 H (1.2-6.7) k/cumm Absolute Lymphocytes 1.03 L (1.2-3.4) k/cumm Potassium 3.2 L (3.5-5.1) mmol/L Anion Gap 12.1 H (3-11) mmol/L Glucose 148 H (70-100) mg/dL Vital Signs Temperature 36.6 C 05/06/19 11:34 Temperature Source Tympanic 05/06/19 11:34 Pulse 71 05/06/19 11:34 Pulse Rhythm Regular 05/06/19 08:41 Pulse 86 05/04/19 22:16 Respiratory Rate 20 05/06/19 11:34 Respiratory Effort Short of Breath 05/06/19 08:41 Respiratory Depth Normal 05/06/19 08:41 Respiratory Pattern Normal 05/06/19 08:41 Blood Pressure 132/80 05/06/19 11:34 Blood Pressure Mean 84 05/04/19 22:16 Blood Pressure Position Supine 05/04/19 20:07 Pulse Oximetry 94 L 05/06/19 11:34 Oxygen Delivery Method Nasal Cannula 05/06/19 11:34 Oxygen Flow Rate 3 05/06/19 11:34 Fraction of Inspired Oxygen (FIO2) 96 05/06/19 08:45 Pain Level 0 05/05/19 19:38 Intake & Output 05/05/19 05/05/19 05/06/19 11:59 23:59 11:59 Intake Total 2170.0 / 4725.0 2555 / 4725.0 2024 Output Total 1000 / 1000 900 / 900 Balance 1170.0 / 3725.0 2555 / 3725.0 1125 / 1125 Weight 108.862 kg 110.1 kg Intake: IV 1810.0 / 4125.0 2315 / 4125.0 1185 / 1185 Oral 360 / 600 240 / 600 840 / 840 Output: Urine 1000 / 1000 900 / 900 Other: Urine Color Yellow Yellow Urine Appearance Clear Clear Clear Urine Odor Normal Voiding Methods Toilet Toilet Toilet Laboratory Results WBC 14.87 k/cumm (4.4-10.8) H D 05/06/19 06:35 RBC 4.51 m/cumm (4.50-6.00) 05/06/19 06:35 Hgb 13.5 g/dL (13.5-17.5) 05/06/19 06:35 Hct 42.0 % (40.0-50.0) 05/06/19 06:35 MCV 93.1 fL (80-95) 05/06/19 06:35 MCH 29.9 pg (27.0-33.0) 05/06/19 06:35 MCHC 32.1 g/dL (32.0-36.0) 05/06/19 06:35 RDW 14.9 % (11.8-14.1) H 05/06/19 06:35 Plt Count 192 x1000/uL (130-400) 05/06/19 06:35 MPV 10.2 fL (8.0-11.0) 05/06/19 06:35 Immature Gran % 0.7 05/06/19 06:35 Neutrophils % 89.7 05/06/19 06:35 Lymphocytes % 6.9 05/06/19 06:35 Monocytes % 2.6 05/06/19 06:35 Eosinophils % 0.0 05/06/19 06:35 Basophils % 0.1 05/06/19 06:35 Absolute Neutrophils 13.34 k/cumm (1.2-6.7) H 05/06/19 06:35 Absolute Lymphocytes 1.03 k/cumm (1.2-3.4) L 05/06/19 06:35 Absolute Monocytes 0.39 k/cumm (0.11-0.7) 05/06/19 06:35 Absolute Eosinophils 0.00 k/cumm (0.0-0.7) 05/06/19 06:35 Absolute Basophils 0.01 k/cumm (0.0-0.2) 05/06/19 06:35 Sodium 140 mmol/L (136-145) 05/06/19 06:35 Potassium 3.2 mmol/L (3.5-5.1) L 05/06/19 06:35 Chloride 103 mmol/L (98-107) 05/06/19 06:35 Carbon Dioxide 24.9 mmol/L (21.0-32.0) 05/06/19 06:35 Anion Gap 12.1 mmol/L (3-11) H 05/06/19 06:35 BUN 15 mg/dL (7-18) 05/06/19 06:35 Creatinine 0.92 mg/dL (0.70-1.30) 05/06/19 06:35 Estimated GFR/1.73 m2 >= 60.00 (mL/min/1.73m2) 05/06/19 06:35 Glucose 148 mg/dL (70-100) H 05/06/19 06:35 Lactate 1.0 mmol/l (0.6-1.4) 05/04/19 20:50 Calcium 8.8 mg/dL (8.5-10.1) 05/06/19 06:35 Magnesium 2.1 mg/dL (1.8-2.4) 05/06/19 06:35 Total Bilirubin 1.2 mg/dL (0.2-1.0) H 05/04/19 20:50 AST 20 U/L (15-37) 05/04/19 20:50 ALT 24 U/L (12-78) 05/04/19 20:50 Alkaline Phosphatase 77 U/L (46-116) 05/04/19 20:50 Troponin I < 0.02 ng/mL (0.00-0.06) 05/04/19 20:50 Total Protein 6.9 g/dL (6.4-8.2) 05/04/19 20:50 Albumin 3.4 g/dL (3.4-5.0) 05/04/19 20:50 Legionella Source (see note) 05/05/19 12:30 Legionella Reprt Status (see note) 05/05/19 12:30 Legionella Final Result (see note) 05/05/19 12:30
[2019-05-06 12:37] LABS: Troponin I < 0.02 ng/mL (0.00-0.06)
--- NOTE | 2019-05-06 15:15 | PHARADMIT ---
Addendum entered by Marcos Saldana III 05/07/19 16:01: Pharmacy Note Subjective Patient is immunosuppressed . Awaiting MD note Objective VS-OK K+3.3 had small BM Assessment On PO Steroids, Doxycycline & Zosyn continues for now. Plan MD was considering discharging patient home after RT walks and verfieis HR is OK. Original Note: Admission Pharmacy Clinical Review COPD, pneumonia Code Status Full Code Current Weight 110.1 kg Renally Cleared and Narrow Therapeutic Index Meds Crcl ~91.0 mL/min current meds okay QTc Value / Action Taken QTc 437 BP Control, Fever BP 132/80 afebrile Electrolytes reviewed K+ 3.2 DVT Prophylaxis pt is on apixaban Opiate Usage / Scheduled Bowel Regimen Ordered no/prn Plt/SCr for Heparin / Enoxaparin plt 192 SCr 0.92 INR for Warfarin n/a H/H stable, WBC/Bands h/h 13.5/42.0 wbc 14.87 Antibiotic appropriateness doxycycline and zosyn Cultures and Sensitivities none Surgical ABX d/c within 24 hr n/a DM control / Insulin Dosing BG 148 none Heart Failure (Check EF%) (ALYSA's, B-Block, Diuretics) diltiazem, metoprolol, IV to PO Switch n/a Home Meds Reviewed yes Home Meds Not Ordered augmentin(has other abx ordered), sumatriptan Comments
[2019-05-06 17:11] LABS: Streptococcus Pneumoniae Ag, U Negative (Negative)
--- NOTE | 2019-05-06 17:52 | PDOC.CMPRO ---
- If Service Date Differs Date of service: 05/06/19 Time of Service: 17:52 Care Management Progress Note S/O: Kennedy is now on telemetry showing atrial fibrilation, he is on Eliquis. Kennedy is having with serial troponins related to chest pain at rest. His WBC is 14.87 today he is receiving oral steroids and IV antibiotics. He continues on his home oxygen regimen. No other changes today. A:Kennedy is a 64 year old male admitted with COPD, Pneumonia with a history of immunosupressive therapy and pulmonary fibrosis. P: Kennedy remains acute today with no change in status. Kennedy in now on telemetry and is receiving treatment r/t COPD exaccerbation. He will likely return home with no additional services. CM will continue to provide support to patient, family, care team and discharge plan of care.
[2019-05-06 18:39] LABS: Troponin I 0.02 ng/mL (0.00-0.06)
[2019-05-06] MEDS: Carbamide Peroxide 15 ML BTL AU (20:13)
[2019-05-06] MEDS: predniSONE 20 MG TAB 40 MG PO (20:15)
[2019-05-06] MEDS: diphenhydrAMINE 25 MG CAP 50 MG PO (22:02)
[2019-05-06] MEDS: Normal Saline Flush 10 ML SYR IVP (23:44)
[2019-05-07] VITALS (14 sets, daily range): BP systolic 112–147; BP diastolic 58–89; PULSE 65–173; RESP 1–24; TEMP 36.2–36.8; O2SAT 84–99
[2019-05-07] MEDS: PIPERACILLIN/TAZO 4.5 GM in Normal Saline 100 ML IVPB ×5 (01:49→23:51)
[2019-05-07] MEDS: Albuterol/Ipratropium 3 ML UPD VIAL UPD ×4 (06:31→23:52)
[2019-05-07 07:16] LABS: Abs Immature Grans 0.24 k/cumm (0.0-0.09); Absolute Monocyte Count 0.89 k/cumm (0.11-0.7); Basophils % 0.2; HCT 42.5 % (40.0-50.0); HGB 13.7 g/dL (13.5-17.5); Immature Grans % 1.3; Lymphocytes % 8.7; Mean Corp. HGB Concentration 32.2 g/dL (32.0-36.0); Mean Platelet Volume 10.2 fL (8.0-11.0); Monocytes % 4.9; Neutrophils % 84.9; Platelet Count 248 x1000/uL (130-400); RBC 4.57 m/cumm (4.50-6.00); RBC Distribution Width 15.1 % (11.8-14.1); White Blood Cell Count 18.13 k/cumm (4.4-10.8)
[2019-05-07 07:20] LABS: Absolute Basophil Count 0.04 k/cumm (0.0-0.2); Absolute Lymphocyte Count 1.58 k/cumm (1.2-3.4); Absolute Neutrophil Count 15.39 k/cumm (1.2-6.7)
[2019-05-07 07:33] LABS: Anion Gap 10.7 mmol/L (3-11); BUN 17 mg/dL (7-18); CO2 27.3 mmol/L (21.0-32.0); CREATININE 1.06 mg/dL (0.70-1.30); Chloride 104 mmol/L (98-107); Glucose 128 mg/dL (70-100); Magnesium 2.2 mg/dL (1.8-2.4); Potassium 3.3 mmol/L (3.5-5.1); Sodium 142 mmol/L (136-145)
[2019-05-07 07:35] LABS: Troponin I < 0.02 ng/mL (0.00-0.06)
[2019-05-07] MEDS: Budesonide/Formoterol 160/4.5 6 GM 60 PUFF INH IH (08:00)
[2019-05-07] MEDS: Normal Saline Flush 10 ML SYR IVP ×4 (08:58→23:51)
[2019-05-07] MEDS: Apixaban 5 MG TAB PO ×2 (08:59→19:46)
[2019-05-07] MEDS: Pantoprazole 40 MG TABCR PO (09:00)
[2019-05-07] MEDS: Sertraline 50 MG TAB 150 MG PO (09:00)
[2019-05-07] MEDS: Folic Acid 1 MG TAB PO (09:00)
[2019-05-07] MEDS: Benzonatate 100 MG CAP PO ×3 (09:00→19:46)
[2019-05-07] MEDS: dilTIAZem CD 120 MG CAPCR PO (09:01)
[2019-05-07] MEDS: predniSONE 20 MG TAB 40 MG PO (09:02)
[2019-05-07] MEDS: guaiFENesin 600 MG TABCR PO ×2 (09:02→19:46)
[2019-05-07] MEDS: Carbamide Peroxide 15 ML BTL AU (09:02)
[2019-05-07] MEDS: Ferrous Sulfate 325 MG TAB PO ×2 (09:02→19:45)
[2019-05-07] MEDS: Metoprolol CR 50 MG TABCR PO (09:02)
[2019-05-07] MEDS: Potassium Chloride 20 MEQ TABCR 40 MEQ PO ×2 (11:54→19:46)
--- NOTE | 2019-05-07 12:50 | W.PM.PROGNOT ---
Date of Service Date of service: 05/07/19 Time of Service: 12:50 Assessment and Plan (1) CAP (community acquired pneumonia): Current visit: Yes Status: Acute Improving. Currently on day #2 of Doxycycline and Zosyn, transitioned to oral steroids. Steroids possibly contributing to agitation, wheezing improving, taper prednisone today. Oxygen requirement at baseline. Symbicort helping with wheezing but could be contributing to tachycardia. Discontinue symbicort and trial Asmanex. Continue current antibiotic regimen. (2) COPD (chronic obstructive pulmonary disease): Current visit: Yes Status: Chronic See above. Taper steroids. (3) Chest pain at rest: Current visit: Yes Status: Acute No further episodes today. Tachycardic at present. Consider outpatient stress test. (4) Pulmonary fibrosis: Current visit: Yes Status: Chronic Chronic. 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 Hold Cellcept- Mr. Worthington and his agree and are requesting that this be discontinued as they feel that he has been ill since he started it in early March. He is also requesting to follow up with local pulmonology. He reports that [facility] is working on setting him up with follow-up with Dr. Pabon. (5) Chronic respiratory failure with hypoxia: Current visit: Yes Status: Chronic Multifactorial - due to pulmonary fibrosis/ILD, COPD. At baseline. Continue supplemental oxygen as needed. (6) Atrial fibrillation with controlled ventricular rate: Current visit: No Status: Chronic Has been in atrial fibrillation and tacycardic on telemetry. Continue eliquis, diltiazem CD, toprol XL. Discontinue symbicort, add PRN metoprolol. Continue to monitor on telemetry. (7) DVT prophylaxis: Current visit: Yes Status: Acute On therapeutic eliquis. (8) Discharge planning issues: Current visit: Yes Status: Acute He is a FULL CODE. Consider palliative consult as an outpatient if he is interested. This case was discussed with Dr. Padilla who is in agreement. Subjective Interval history since last seen: Mr. Worthington denies shortness of breath at rest, he has shortness of breath with activity which is his baseline. He occasionally feels slightly wheezy but reports that it is improving. His cough is improving. Nursing reports that he has been tachycardic up to 160s today on telemetry. He reported left sided chest pain yesterday, he has not experienced any further chest pain since that report. He does not feel palpitations, he denies dizziness. He is eating and drinking, he denies any abdominal pain, nausea, or vomiting. He and his are concerned that he has become more ill since he started taking Mycophenolate Mofetil. Exam Narrative Exam Narrative: General: Very pleasant obese Caucasain male, A&Ox3, NAD, sitting up in the chair, he appears anxious/agitated. HEENT: normocephalic, atraumatic, pupils equal and round, extraocular movements intact, MMM Heart: irregularly irregular rhythm, tachycardic, no murmur appreciated. Lungs: respirations unlabored at rest, lungs with rales to bilateral bases, few scattered wheezes. GI: normal bowel sounds throughout. Abdomen is soft, nontender on palpation, nondistended Extremities: no clubbing, cyanosis or edema. Objective Objective Clinical Data: Abnormal lab results 05/07/19 05/07/19 Range/Units 06:55 06:55 WBC 18.13 H (4.4-10.8) k/cumm RDW 15.1 H (11.8-14.1) % Absolute Neutrophils 15.39 H (1.2-6.7) k/cumm Absolute Monocytes 0.89 H (0.11-0.7) k/cumm Potassium 3.3 L (3.5-5.1) mmol/L Glucose 128 H (70-100) mg/dL Vital Signs Temperature 36.8 C 05/07/19 12:28 Temperature Source Skin 05/07/19 12:28 Pulse 65 05/07/19 12:28 Pulse Rhythm Irregular 05/07/19 09:34 Pulse 86 05/04/19 22:16 Respiratory Rate 20 05/07/19 12:28 Respiratory Effort 05/07/19 09:34 Respiratory Depth Normal 05/07/19 09:34 Respiratory Pattern Normal 05/07/19 09:34 Blood Pressure 147/82 H 05/07/19 12:28 Blood Pressure Mean 84 05/04/19 22:16 Blood Pressure Position Supine 05/04/19 20:07 Pulse Oximetry 96 05/07/19 12:28 Oxygen Delivery Method Nasal Cannula 05/07/19 12:28 Oxygen Flow Rate 3 05/07/19 12:28 Fraction of Inspired Oxygen (FIO2) 96 05/06/19 08:45 Pain Level 0 05/07/19 07:35 Intake & Output 05/06/19 05/07/19 05/07/19 23:59 11:59 23:59 Intake Total 1790 / 3915 310 / 310 Balance 1790 / 3015 310 / 310 Weight 110.2 kg Intake: IV 1300 / 2585 310 / 310 Oral 490 / 1330 Other: Urine Color Yellow Urine Appearance Clear Comment Patient reports voiding in toilet this am. RN in room at time of void. Patient flushed, urine amount and characteristics not assessed at this time. Stool Size Moderate Stool Characteristics Formed Voiding Methods Toilet Laboratory Results WBC 18.13 k/cumm (4.4-10.8) H 05/07/19 06:55 RBC 4.57 m/cumm (4.50-6.00) 05/07/19 06:55 Hgb 13.7 g/dL (13.5-17.5) 05/07/19 06:55 Hct 42.5 % (40.0-50.0) 05/07/19 06:55 MCV 93.0 fL (80-95) 05/07/19 06:55 MCH 30.0 pg (27.0-33.0) 05/07/19 06:55 MCHC 32.2 g/dL (32.0-36.0) 05/07/19 06:55 RDW 15.1 % (11.8-14.1) H 05/07/19 06:55 Plt Count 248 x1000/uL (130-400) 05/07/19 06:55 MPV 10.2 fL (8.0-11.0) 05/07/19 06:55 Immature Gran % 1.3 05/07/19 06:55 Neutrophils % 84.9 05/07/19 06:55 Lymphocytes % 8.7 05/07/19 06:55 Monocytes % 4.9 05/07/19 06:55 Eosinophils % 0.0 05/07/19 06:55 Basophils % 0.2 05/07/19 06:55 Absolute Neutrophils 15.39 k/cumm (1.2-6.7) H 05/07/19 06:55 Absolute Lymphocytes 1.58 k/cumm (1.2-3.4) 05/07/19 06:55 Absolute Monocytes 0.89 k/cumm (0.11-0.7) H 05/07/19 06:55 Absolute Eosinophils 0.00 k/cumm (0.0-0.7) 05/07/19 06:55 Absolute Basophils 0.04 k/cumm (0.0-0.2) 05/07/19 06:55 Sodium 142 mmol/L (136-145) 05/07/19 06:55 Potassium 3.3 mmol/L (3.5-5.1) L 05/07/19 06:55 Chloride 104 mmol/L (98-107) 05/07/19 06:55 Carbon Dioxide 27.3 mmol/L (21.0-32.0) 05/07/19 06:55 Anion Gap 10.7 mmol/L (3-11) 05/07/19 06:55 BUN 17 mg/dL (7-18) 05/07/19 06:55 Creatinine 1.06 mg/dL (0.70-1.30) 05/07/19 06:55 Estimated GFR/1.73 m2 >= 60.00 (mL/min/1.73m2) 05/07/19 06:55 Glucose 128 mg/dL (70-100) H 05/07/19 06:55 Lactate 1.0 mmol/l (0.6-1.4) 05/04/19 20:50 Calcium 9.0 mg/dL (8.5-10.1) 05/07/19 06:55 Magnesium 2.2 mg/dL (1.8-2.4) 05/07/19 06:55 Total Bilirubin 1.2 mg/dL (0.2-1.0) H 05/04/19 20:50 AST 20 U/L (15-37) 05/04/19 20:50 ALT 24 U/L (12-78) 05/04/19 20:50 Alkaline Phosphatase 77 U/L (46-116) 05/04/19 20:50 Troponin I < 0.02 ng/mL (0.00-0.06) 05/07/19 06:55 Total Protein 6.9 g/dL (6.4-8.2) 05/04/19 20:50 Albumin 3.4 g/dL (3.4-5.0) 05/04/19 20:50 Legionella Source (see note) 05/05/19 12:30 Legionella Reprt Status (see note) 05/05/19 12:30 Legionella Final Result (see note) 05/05/19 12:30 Ur Strep pneumoniae Ag Negative (Negative) 05/05/19 12:30
[2019-05-07] MEDS: DOXYCYCLINE 100 MG in Normal Saline 100 ML IVPB (12:52)
--- NOTE | 2019-05-07 13:31 | PDOC.CMPRO ---
- If Service Date Differs Date of service: 05/07/19 Time of Service: 13:31 Care Management Progress Note S/O: Kennedy is on telemetry monitoring atrial fibrillation with a rapid ventricular response. The troponins drawn yesterday were negative. His WBC is still increasing; today it is 18.13. Kennedy continues to receive oral steroids and IV antibiotics. His current oxygen requirement is 2L/min which is a decrease from his baseline level of 4L/min. Kennedy remains pleasant, cheerful and easily engaged and is looking forward to being discharged soon. A:Kennedy is a 64 year old male admitted with COPD, Pneumonia with a history of immunosupressive therapy and pulmonary fibrosis. P: Kennedy remains acute today with no change in status. Kennedy remains on telemetry and is receiving treatment r/t COPD exaccerbation. He will likely return home with no additional services. CM will continue to provide support to patient, family, care team and discharge plan of care.
[2019-05-07] MEDS: Mometasone 220 MCG 14 DOSE INHALER 1 PUFF IH (19:50)
[2019-05-07] MEDS: diphenhydrAMINE 25 MG CAP 50 MG PO (22:14)
[2019-05-08] VITALS (17 sets, daily range): BP systolic 132–151; BP diastolic 76–97; PULSE 75–172; RESP 1–32; TEMP 35.9–36.8; O2SAT 86–96
[2019-05-08] MEDS: DOXYCYCLINE 100 MG in Normal Saline 100 ML IVPB ×2 (00:38→12:09)
[2019-05-08] MEDS: PIPERACILLIN/TAZO 4.5 GM in Normal Saline 100 ML IVPB ×2 (06:10→11:31)
[2019-05-08] MEDS: Mometasone 220 MCG 14 DOSE INHALER 1 PUFF IH ×2 (07:40→20:42)
[2019-05-08] MEDS: predniSONE 20 MG TAB 40 MG PO (08:26)
[2019-05-08] MEDS: Sertraline 50 MG TAB 150 MG PO (08:26)
[2019-05-08] MEDS: Folic Acid 1 MG TAB PO (08:26)
[2019-05-08] MEDS: guaiFENesin 600 MG TABCR PO ×2 (08:27→20:42)
[2019-05-08] MEDS: dilTIAZem CD 120 MG CAPCR PO (08:27)
[2019-05-08] MEDS: Ferrous Sulfate 325 MG TAB PO (08:27)
[2019-05-08] MEDS: Potassium Chloride 20 MEQ TABCR 40 MEQ PO ×2 (08:27→20:42)
[2019-05-08] MEDS: Apixaban 5 MG TAB PO ×2 (08:28→20:42)
[2019-05-08] MEDS: Benzonatate 100 MG CAP PO ×3 (08:28→20:42)
[2019-05-08] MEDS: Metoprolol CR 50 MG TABCR PO ×2 (08:28→20:42)
[2019-05-08] MEDS: Pantoprazole 40 MG TABCR PO (08:28)
[2019-05-08] MEDS: Albuterol/Ipratropium 3 ML UPD VIAL UPD ×3 (11:17→23:20)
[2019-05-08] MEDS: Normal Saline 500 ML IV (11:27)
[2019-05-08] MEDS: Normal Saline Flush 10 ML SYR IVP (11:27)
--- NOTE | 2019-05-08 13:03 | PGE_ITS ---
Date of Service Date of service: 05/08/19 Time of Service: 13:01 Assessment and Plan (1) CAP (community acquired pneumonia): Current visit: Yes Status: Acute Improving. Currently on day #3 of Doxycycline and Zosyn, will transitioned to oral antibiotics amox/clav and doxycycline along with oral steroids. Oxygen requirement at baseline. Symbicort helping with wheezing but could be c ontributing to tachycardia, changed to mometasone inhaled (ICS only). (2) COPD (chronic obstructive pulmonary disease): Current visit: Yes Status: Chronic See above. Tapering steroids. (3) Chest pain at rest: Current visit: Yes Status: Acute No further episodes today. Tachycardic at present. Plan for outpatient stress test. (4) Pulmonary fibrosis: Current visit: Yes Status: Chronic Chronic. 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 Hold Cellcept- as he has felt sick since he started it in early March. Plan follow-up with Dr. Pabon per request. (5) Chronic respiratory failure with hypoxia: Current visit: Yes Status: Chronic Multifactorial - due to pulmonary fibrosis/ILD, COPD. At baseline. Continue supplemental oxygen as needed. (6) Atrial fibrillation with controlled ventricular rate: Current visit: No Status: Chronic Continues to be in atrial fibrillation and tacycardic on telemetry despite discontinuing the beta agonist. Will titrate up on metoprolol and continue to monitor on tele overnight. Continue eliquis, diltiazem CD. Also has PRN metoprolol. (7) DVT prophylaxis: Current visit: Yes Status: Acute On therapeutic eliquis. (8) Discharge planning issues: Current visit: Yes Status: Acute He is a FULL CODE. Consider palliative consult as an outpatient if he is interested. Subjective Patient reports: tolerating a regular diet, voiding w/o difficulty and shortness of breath; denies diarrhea, nausea, vomiting and fever Interval history since last seen: events: Stopped symbicort, changed to mometasone inhaled. tele up to 172 this morning while up walking, baseline 80s-100s S: Feels okay. Cough continues, but less. SOB improving but still there with exertion along with feeling a little weak. No chest pain right now. Still fr ustrated with his situation. Exam Narrative Exam Narrative: General: A&Ox3, NAD, sitting up in the chair, speaking in full sentences. HEENT: conjunctiva clear, MMM Heart: irregularly irregular rhythm, tachycardic, no murmur appreciated. Lungs: respirations unlabored at rest, lungs with rales to bilateral bases, no wheezes. GI: Abdomen is soft, nontender on palpation, nondistended Extremities: no clubbing, cyanosis or edema. Objective Objective Clinical Data: Vital Signs Temperature 36.8 C 05/08/19 11:50 Temperature Source Tympanic 05/08/19 11:50 Pulse 103 H 05/08/19 11:50 Pulse Rhythm Irregular 05/08/19 09:31 Pulse 86 05/04/19 22:16 Respiratory Rate 21 05/08/19 11:50 Respiratory Effort Incrsd Work of Breathing 05/08/19 09:31 Respiratory Depth Normal 05/08/19 09:31 Respiratory Pattern Tachypnea 05/08/19 09:31 Blood Pressure 133/97 H 05/08/19 11:50 Blood Pressure Mean 84 05/04/19 22:16 Blood Pressure Position Supine 05/04/19 20:07 Pulse Oximetry 94 L 05/08/19 11:50 Oxygen Delivery Method Nasal Cannula 05/08/19 11:50 Oxygen Flow Rate 3 05/08/19 11:50 Fraction of Inspired Oxygen (FIO2) 96 05/06/19 08:45 Pain Level 0 05/08/19 11:50 Intake & Output 05/07/19 05/08/19 05/08/19 23:59 11:59 23:59 Intake Total 440.000 / 850.000 820 / 1040 220 / 1040 Output Total 300 / 300 300 / 300 Balance 140.000 / 550.000 520 / 740 220 / 740 Weight 111.2 kg Intake: IV 200.000 / 610.000 300 / 400 100 / 400 Oral 240 / 240 520 / 640 120 / 640 Output: Urine 300 / 300 300 / 300 Other: Urine Color Yellow Yellow Urine Appearance Clear Clear Urine Odor Normal Comment pt voiding independently in the bathroom Voiding Methods Toilet Toilet Laboratory Results WBC 18.13 k/cumm (4.4-10.8) H 05/07/19 06:55 RBC 4.57 m/cumm (4.50-6.00) 05/07/19 06:55 Hgb 13.7 g/dL (13.5-17.5) 05/07/19 06:55 Hct 42.5 % (40.0-50.0) 05/07/19 06:55 MCV 93.0 fL (80-95) 05/07/19 06:55 MCH 30.0 pg (27.0-33.0) 05/07/19 06:55 MCHC 32.2 g/dL (32.0-36.0) 05/07/19 06:55 RDW 15.1 % (11.8-14.1) H 05/07/19 06:55 Plt Count 248 x1000/uL (130-400) 05/07/19 06:55 MPV 10.2 fL (8.0-11.0) 05/07/19 06:55 Immature Gran % 1.3 05/07/19 06:55 Neutrophils % 84.9 05/07/19 06:55 Lymphocytes % 8.7 05/07/19 06:55 Monocytes % 4.9 05/07/19 06:55 Eosinophils % 0.0 05/07/19 06:55 Basophils % 0.2 05/07/19 06:55 Absolute Neutrophils 15.39 k/cumm (1.2-6.7) H 05/07/19 06:55 Absolute Lymphocytes 1.58 k/cumm (1.2-3.4) 05/07/19 06:55 Absolute Monocytes 0.89 k/cumm (0.11-0.7) H 05/07/19 06:55 Absolute Eosinophils 0.00 k/cumm (0.0-0.7) 05/07/19 06:55 Absolute Basophils 0.04 k/cumm (0.0-0.2) 05/07/19 06:55 Sodium 142 mmol/L (136-145) 05/07/19 06:55 Potassium 3.3 mmol/L (3.5-5.1) L 05/07/19 06:55 Chloride 104 mmol/L (98-107) 05/07/19 06:55 Carbon Dioxide 27.3 mmol/L (21.0-32.0) 05/07/19 06:55 Anion Gap 10.7 mmol/L (3-11) 05/07/19 06:55 BUN 17 mg/dL (7-18) 05/07/19 06:55 Creatinine 1.06 mg/dL (0.70-1.30) 05/07/19 06:55 Estimated GFR/1.73 m2 >= 60.00 (mL/min/1.73m2) 05/07/19 06:55 Glucose 128 mg/dL (70-100) H 05/07/19 06:55 Lactate 1.0 mmol/l (0.6-1.4) 05/04/19 20:50 Calcium 9.0 mg/dL (8.5-10.1) 05/07/19 06:55 Magnesium 2.2 mg/dL (1.8-2.4) 05/07/19 06:55 Total Bilirubin 1.2 mg/dL (0.2-1.0) H 05/04/19 20:50 AST 20 U/L (15-37) 05/04/19 20:50 ALT 24 U/L (12-78) 05/04/19 20:50 Alkaline Phosphatase 77 U/L (46-116) 05/04/19 20:50 Troponin I < 0.02 ng/mL (0.00-0.06) 05/07/19 06:55 Total Protein 6.9 g/dL (6.4-8.2) 05/04/19 20:50 Albumin 3.4 g/dL (3.4-5.0) 05/04/19 20:50 Legionella Source (see note) 05/05/19 12:30 Legionella Reprt Status (see note) 05/05/19 12:30 Legionella Final Result (see note) 05/05/19 12:30 Ur Strep pneumoniae Ag Negative (Negative) 05/05/19 12:30
--- NOTE | 2019-05-08 16:04 | CMPROGNOTE_ITS ---
Care Management Progress Note S/O: Kennedy is on telemetry monitoring atrial fibrillation with a rapid ventricular response. The troponins were negative. His WBC is still increasing; yesterday it is 18.13. Kennedy continues to receive oral steroids and IV antibiotics. His current oxygen requirement is 2L/min which is a decrease from his baseline level of 4L/min. Kennedy remains pleasant, cheerful and easily engaged and is looking forward to being discharged soon. A:Kennedy is a 64 year old male admitted with COPD, Pneumonia with a history of immunosupressive therapy and pulmonary fibrosis. P: Kennedy remains acute today with no change in status. Kennedy remains on telemetry and is receiving treatment r/t COPD exaccerbation. He will likely return home with no additional services. CM will continue to provide support to patient, family, care team and discharge plan of care. Currently has homeO2 through [facility].
[2019-05-08] MEDS: Amoxicillin 875/Clav. 125 TAB PO (20:41)
[2019-05-08] MEDS: Doxycycline Hyclate 100 MG CAP PO (20:42)
[2019-05-08] MEDS: diphenhydrAMINE 25 MG CAP 50 MG PO (22:23)
[2019-05-09] VITALS (7 sets, daily range): BP systolic 140–145; BP diastolic 82–105; PULSE 83–104; RESP 18–20; TEMP 36–36.4; O2SAT 92–99
[2019-05-09] MEDS: Albuterol/Ipratropium 3 ML UPD VIAL UPD (06:46)
[2019-05-09 07:02] LABS: HCT 42.6 % (40.0-50.0); HGB 13.7 g/dL (13.5-17.5); Mean Corp. HGB Concentration 32.2 g/dL (32.0-36.0); Mean Corpuscular Hemoglobin 30.1 pg (27.0-33.0); Mean Corpuscular Volume 93.6 fL (80-95); Mean Platelet Volume 9.8 fL (8.0-11.0); Platelet Count 228 x1000/uL (130-400); RBC 4.55 m/cumm (4.50-6.00); RBC Distribution Width 15.4 % (11.8-14.1); White Blood Cell Count 12.04 k/cumm (4.4-10.8)
[2019-05-09 07:12] LABS: BUN 18 mg/dL (7-18); CREATININE 0.95 mg/dL (0.70-1.30); Calcium 8.5 mg/dL (8.5-10.1); Chloride 103 mmol/L (98-107); Glucose 91 mg/dL (70-100); Magnesium 2.1 mg/dL (1.8-2.4); Potassium 3.4 mmol/L (3.5-5.1); Sodium 141 mmol/L (136-145)
[2019-05-09] MEDS: Mometasone 220 MCG 14 DOSE INHALER 1 PUFF IH (07:28)
[2019-05-09] MEDS: Potassium Chloride 20 MEQ TABCR 40 MEQ PO (07:29)
[2019-05-09] MEDS: guaiFENesin 600 MG TABCR PO (07:29)
[2019-05-09] MEDS: Doxycycline Hyclate 100 MG CAP PO (07:29)
[2019-05-09] MEDS: Apixaban 5 MG TAB PO (07:29)
[2019-05-09] MEDS: Sertraline 50 MG TAB 150 MG PO (07:29)
[2019-05-09] MEDS: dilTIAZem CD 120 MG CAPCR PO (07:29)
[2019-05-09] MEDS: Amoxicillin 875/Clav. 125 TAB PO (07:29)
[2019-05-09] MEDS: Benzonatate 100 MG CAP PO (07:29)
[2019-05-09] MEDS: predniSONE 20 MG TAB 40 MG PO (07:29)
[2019-05-09] MEDS: Folic Acid 1 MG TAB PO (07:29)
[2019-05-09] MEDS: Pantoprazole 40 MG TABCR PO (07:30)
[2019-05-09] MEDS: Metoprolol CR 50 MG TABCR PO (07:30)
[2019-05-09] MEDS: Ferrous Sulfate 325 MG TAB PO (07:32)
[2019-05-09 07:41] LABS: Absolute Neutrophil Count 6.86 k/cumm (1.2-6.7)
[2019-05-09 07:42] LABS: Absolute Lymphocyte Count 3.61 k/cumm (1.2-3.4); Absolute Monocyte Count 0.96 k/cumm (0.11-0.7); Diff Comment Manual Differential; Polychromasia Present
[2019-05-09] MEDS: Carbamide Peroxide 15 ML BTL AU (09:00)
--- NOTE | 2019-05-09 11:12 | W.PM.DS.N ---
Date of service: 05/09/19 Time of Service: 11:12 DS: Diagnosis Discharge Diagnosis (1) CAP (community acquired pneumonia): Status: Acute (2) COPD (chronic obstructive pulmonary disease): Status: Chronic (3) Chest pain at rest: Status: Acute (4) Pulmonary fibrosis: Status: Chronic (5) Chronic respiratory failure with hypoxia: Status: Chronic (6) Atrial fibrillation with controlled ventricular rate: Status: Chronic (7) DVT prophylaxis: Status: Acute (8) Discharge planning issues: Status: Acute Discharge Plan Disposition Patient Disposition: HOME Condition: Improving Discharge Details Chief Complaint: RespSymp Reason For Visit: COPD, PNEUMONIA Admit Date/Time: 05/04/19 23:20 Admit Provider: José Miguel Gardner Attending Provider: José Miguel Gardner Primary Care Provider: Radha Tobar ED Provider: Deangelo Enriquez [facility] Course Hospital Course: 64 male with COPD, pulmonary fibrosis, here with one week cough and SOB. Saw PCP 4 days ago, started Augmentin without help. In ER CT shows bibasilar lesions c/w pneumonitis. Given Zosyn and Doxy and admitted for further management. During his hospital course he did experience rapid afib placed on telemetry. He was started on toprol XL along with diltiazem and eliquis. Rate controlled for the last 24 hours on toprol 50 mg BID. Lung sounds clear, baseline oxygen requirement. Feels better and would like to go home. Plan is for him to go home on tapering steroid dose, augmentin and doxycycyline, follow up with PCP in 1 week and with toprol and diltiazem. (1) CAP (community acquired pneumonia): Current visit: Yes Status: Acute Improving. Currently on day #4 of Doxycycline will transitioned to oral antibiotics amox/clav and doxycycline along with oral steroids. Oxygen requirement at baseline. Symbicort helping with wheezing but could be contributing to tachycardia, changed to mometasone inhaled (ICS only). (2) COPD (chronic obstructive pulmonary disease): Current visit: Yes Status: Chronic See above. Tapering steroids. (3) Chest pain at rest: Current visit: Yes Status: Acute No further episodes today. Tachycardic at present. Plan for outpatient stress test. (4) Pulmonary fibrosis: Chronic. 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 Hold Cellcept- as he has felt sick since he started it in early March. Plan follow-up with Dr. Pabon per request. (5) Chronic respiratory failure with hypoxia: Multifactorial - due to pulmonary fibrosis/ILD, COPD. At baseline. Continue supplemental oxygen as needed. (6) Atrial fibrillation with controlled ventricular rate: Rate controlled after titrating metoprolo. Continue eliquis, diltiazem CD. Also has PRN metoprolol. (7) DVT prophylaxis: On therapeutic eliquis. Home Meds and New Rx's Prescriptions: New doxycycline hyclate 100 mg Capsule 100 mg PO BID Qty: 8 RF: 0 metoprolol succinate 50 mg Tablet Extended Release 24 Hr 50 mg PO BID Qty: 60 RF: 0 prednisone 20 mg Tablet 40 mg PO DAILY Qty: 16 RF: 0 amoxicillin-pot clavulanate 875-125 mg Tablet 1 tab PO BID Qty: 8 RF: 0 Asmanex Twisthaler 220 mcg (14 doses) Aerosol Powdr Breath Activated 1 inh Inhalation BID Qty: 1 RF: 0 Continued sumatriptan succinate [Imitrex] 50 MG tablet 50 mg PO PRN RF: 0 diphenhydramine HCl [Benadryl] 25 MG capsule 50 mg PO HS RF: 0 pantoprazole 40 MG tablet,delayed release (DR/EC) 40 mg PO DAILY RF: 0 sertraline 100 MG tablet 150 mg PO QAM RF: 0 diltiazem HCl 120 MG capsule,extended release 24hr 120 mg PO DAILY Qty: 30 RF: 1 folic acid 1 MG tablet 1 mg PO DAILY Qty: 30 RF: 1 Eliquis 5 MG tablet 5 mg PO BID Qty: 60 RF: 1 mycophenolate mofetil 250 mg Capsule 500 mg PO BID RF: 0 Discontinued Metoprolol Succinate 50 MG TAB.ER.24H 50 mg PO DAILY RF: 0 ferrous sulfate 325 MG tablet 325 mg PO BID Qty: 60 RF: 1 amoxicillin-pot clavulanate [Augmentin] 500-125 mg Tablet 1 tab PO BID RF: 0 Discharge Instructions Instructions: Atrial Fibrillation (GEN), Antibiotic Resistant Bacteria (GEN), Using Oxygen at Home (GEN), Community Acquired Pneumonia (GEN), How Your Lungs Work (GEN) Additional Instructions: Follow up with your Primary provider in 1 week. Finish all prescription medications. Take as directed. You will have a tapering steroid dose, finish all medication and take as directed. Eat a yogurt daily for 1 month. Get blood work in 2 days. If you have chest pain, shortness of breath, n/v/d, calf pain or fevers seek medical attention immediately. Stand Alone Forms: Nursing Discharge Form Referrals: Radha Tboar MD [Primary Care Provider] - 05/12/19 10:30 am Activity:: Activity as Tolerated Equipment/Supplies:: No Equipment Needed Diet:: As Tolerated Discharge Orders Discharge Orders: Discharge Order (Routine); Ordered 05/09/19 Ordered By: Jess Sheppard Other Ambulatory Orders: Basic Metabolic Panel (Routine) Location: Determined by Patient Ordered By: Jess Sheppard Complete Blood Count w/Diff (Routine) Location: Determined by Patient Ordered By: Jess Sheppard Exam Narrative Exam Narrative: General: A&Ox3, NAD, sitting up in the chair, speaking in full sentences. HEENT: conjunctiva clear, MMM Heart: irregularly irregular rhythm, tachycardic, no murmur appreciated. Lungs: respirations unlabored at rest, lungs with fine crackels to bilateral bases, no wheezes, upper clifton clear. GI: Abdomen is soft, nontender on palpation, nondistended Extremities: no clubbing, cyanosis or edema. DS: Data Vitals/I&O Vitals and I&O: Vital Signs Temperature 36.0 C L 05/09/19 07:40 Temperature Source Tympanic 05/09/19 07:40 Pulse 94 H 05/09/19 08:31 Pulse Rhythm Irregular 05/09/19 07:22 Pulse 86 05/04/19 22:16 Respiratory Rate 20 05/09/19 07:40 Respiratory Effort Incrsd Work of Breathing 05/09/19 07:22 Respiratory Depth Normal 05/09/19 07:22 Respiratory Pattern Normal 05/09/19 07:22 Blood Pressure 145/90 H 05/09/19 07:40 Blood Pressure Mean 84 05/04/19 22:16 Blood Pressure Position Supine 05/04/19 20:07 Pulse Oximetry 94 L 05/09/19 08:49 Oxygen Delivery Method Nasal Cannula 05/09/19 08:49 Oxygen Flow Rate 3 05/09/19 08:49 Fraction of Inspired Oxygen (FIO2) 96 05/06/19 08:45 Pain Level 0 05/09/19 07:40 Comment 05/09/19 06:57 Intake & Output 05/08/19 05/08/19 05/09/19 11:59 23:59 11:59 Intake Total 830 / 1435.172 605.172 / 1435.172 240 / 240 Output Total 300 / 300 Balance 530 / 1135.172 605.172 / 1135.172 240 / 240 Weight 111.2 kg Intake: IV 310 / 555.172 245.172 / 555.172 Oral 520 / 880 360 / 880 240 / 240 Output: Urine 300 / 300 Other: Urine Color Yellow Urine Appearance Clear Urine Odor Normal Comment pt voiding independently in the bathroom Pt voiding ad magdalena. Urine not seen at this time; pt denies sx. Stool Characteristics Formed Brown Voiding Methods Toilet Toilet Completed studies during hospitalization [Text1]: bravo(s) a CT:CT chest PE CTA SYMPTOM/DIAGNOSIS: INCREASING SOB PE CHEST CT: CT angiography was performed with multi slice acquisition and multi planar and 3D reconstruction. Comparison is made with 04/15/18. There is no evidence of a pulmonary embolus. The thoracic aorta is of normal caliber. No aneurysm or dissection is seen. Heart size is within normal limits. No significant pericardial effusion is seen. No findings to suggest right ventricular dysfunction are present. There are mildly enlarged lymph nodes in the mediastinum which are unchanged,.compared to the prior examination. No pleural effusion or pneumothorax is identified. The tracheobronchial tree is unremarkable Extensive septal thickening is seen throughout the lungs consistent with chronic pulmonary fibrosis. Centrilobular and paraseptal emphysematous changes are seen in the lungs. Scattered patchy air space opacities are seen within the lungs, particularly in the bases peripherally. Degenerative changes are seen in the spine. Upper abdominal images show the patient is status post cholecystectomy. IMPRESSION: 1. No evidence of a pulmonary embolus, thoracic aortic dissection or aneurysm. 2. Findings consistent with chronic pulmonary fibrosis. 3. Stable, mildly enlarged lymph nodes in the mediastinum. 4. Patchy aveolar opacities predominantly in the lung bases, this may represent a non infectious aveolitis. Infectious or inflammatory process cannot be excluded. EXAM: CT Angiography Chest With Contrast EXAM DATE/TIME: 05/04/2019 8:47 PM CLINICAL HISTORY: 64 years old, male; Signs and symptoms; Shortness of breath; Patient HX: Increasing SOB; Additional info: HX of copd and pulmonary fibrosis TECHNIQUE: Imaging protocol: Axial computed tomographic angiography images of the chest with intravenous contrast using CT angiography protocol. Coronal and sagittal reformatted images were created and reviewed. 3D rendering: MIP reconstructed images were created and reviewed. Contrast material: OMNIPAQUE 350; Contrast volume: 84 ml; Contrast route: IV; COMPARISON: CT CHEST FOR PULMONARY EMBOLUS 03/27/2018 12:02 PM FINDINGS: Pulmonary arteries: The pulmonary arteries enhance appropriately with no evidence of pulmonary embolism. Aorta: The aorta enhances appropriately without evidence of dissection or aneurysm. Mild aortic ectasia and tortuosity. Thyroid: The visualized thyroid gland demonstrates no gross abnormality. Lungs: No tracheobronchial abnormalities. There is extensive peripheral interlobular and intralobular septal thickening consistent with the patient's history of chronic pulmonary fibrosis, with early peripheral fibrocystic changes in the lung bases and moderate apical fibrocystic changes, right greater than left. There are patchy elements with associated reticulonodular and alveolar density in the peripheral lung bases which could represent active non-infectious alveolitis related to chronic interstitial lung disease. Elements of infectious pulmonary infiltrate or not excluded based on imaging appearance. No evidence of abscess or empyema. No discrete pulmonary mass lesions are identified. Prior pleurodesis in the left lung base. Pleural space: No pleural effusion. No pneumothorax. Heart: Heart size normal. No pericardial effusion. Mediastinum: The esophagus is largely contracted but demonstrates no gross abnormality. Liver: Mild fatty infiltration of the liver . No focal hepatic lesions. Prior cholecystectomy with expected mild postoperative dilatation of the biliary system. Lymph nodes: No supraclavicular or axillary adenopathy. Few slightly prominent mediastinal nodes are identified in the pretracheal retrocaval distribution measuring up to 8 mm short axis with additional mildly enlarged nodes in the AP window measuring up to 12 mm short axis in the subcarinal distribution measuring up to 12 mm short axis. Slightly prominent bilateral hilar nodes as well. Bones/joints: No acute osseous abnormalities are identified. Soft tissues: The soft tissues of the chest wall demonstrate no gross abnormality. IMPRESSION: 1. No evidence of pulmonary embolism or aortic dissection. 2. Chronic interstitial fibrosis again noted. 3. Patchy alveolar densities predominantly in a basilar distribution may represent active noninfectious alveolitis related to chronic interstitial lung disease. Elements of infectious pulmonary infiltrate or not excluded. No evidence of abscess or empyema. 4. Enlarged mediastinal nodes again noted, similar to prior exam 03/27/2018. These are nonspecific. 5. Fatty liver. Labs on day of discharge: Labs from last 24 hours 05/09/19 05/09/19 05/08/19 06:42 06:42 16:34 WBC 12.04 H RBC 4.55 Hgb 13.7 Hct 42.6 MCV 93.6 MCH 30.1 MCHC 32.2 RDW 15.4 H Plt Count 228 MPV 9.8 Immature Gran % See Differential Neutrophils % 56.0 Band Neutrophils % 1.0 Lymphocytes % 30.0 Monocytes % 8.0 Eosinophils % 0.0 Basophils % 0.0 Metamyelocytes % 1.0 Myelocytes % 5.0 Absolute Neutrophils 6.86 H Absolute Lymphocytes 3.61 H Absolute Monocytes 0.96 H Absolute Eosinophils 0.00 Absolute Basophils 0.00 Differential Comment Manual differential RBC Morphology See below Polychromasia Present Sodium 141 Potassium 3.4 L Chloride 103 Carbon Dioxide 31.0 Anion Gap 7.0 BUN 18 Creatinine 0.95 Estimated GFR/1.73 m2 >= 60.00 Glucose 91 Calcium 8.5 Magnesium 2.1 M. pneumoniae Source Pending M. 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 Sister No problems noted. Social History Smoking/Tobacco Use Status: Former Tobacco Use Alcohol Intake: never Drug use: Never Substance use type: does not use Do you feel safe at home: Yes Do you feel safe in your relationship?: Yes
--- NOTE | 2019-05-09 15:05 | PDOC.CMDIS ---
LACE Index Scoring Tool - Questions: Length of Stay (in days): 4 - 6 Acuity (Admit via E.D.?): Yes Comorbidities: Chronic Pulmonary Disease E.D. Visits: 1 - Answers: Total Score: 10 Risk of Readmission: High Risk Care Management Discharge Reason for Hospitalization: COPD Discharge Plan: Neil will return home today. No new services will be needed. [facility] , Agata, will transport by car.
--- NOTE | 2019-05-09 15:09 | CMDISCH_ITS ---
LACE Index Scoring Tool - Questions: Length of Stay (in days): 4 - 6 Acuity (Admit via E.D.?): Yes Comorbidities: Chronic Pulmonary Disease E.D. Visits: 1 - Answers: Total Score: 10 Risk of Readmission: High Risk Care Management Discharge Reason for Hospitalization: COPD Discharge Plan: Neil will return home today. No new services will be needed. [facility] , Agata, will transport by car.
[2019-05-11 00:09] LABS: Mycoplasma Pneumoniae PCR Negative; Specimen source sputum
== END 2019-05-09 12:26 | disposition home or self-care (01) | DRG 190 ==
LOC: ER 23:31 → MS 23:56
PROVIDERS: Internal Medicine; Admitting Provider General Practice; Emergency Provider Emergency Medicine; PCP Family Medicine; Visit Provider Family Medicine
DX: J44.1 Chronic obstructive pulmonary disease with (acute) exacerbation (principal); J18.9 Pneumonia, unspecified organism; J96.11 Chronic respiratory failure with hypoxia; J84.9 Interstitial pulmonary disease, unspecified; J44.0 Chronic obstructive pulmonary disease with (acute) lower respiratory infection; R07.9 Chest pain, unspecified; J84.112 Idiopathic pulmonary fibrosis; R00.0 Tachycardia, unspecified; I48.91 Unspecified atrial fibrillation; I10 Essential (primary) hypertension; K21.9 Gastro-esophageal reflux disease without esophagitis; R45.1 Restlessness and agitation; Z87.891 Personal history of nicotine dependence
CPT/HCPCS: 36415; 71275; 80048; 80053; 87449; 93005; 94640; 96361; 96365; 99222; 99232; 99239; 99285; 83605; 83735; 84484; 85025; 87070; 87205; 87450; 87581; 93010; J2543; J3490; J7512; J7517; J7613; J7620

== ENCOUNTER 2019-05-12 09:38 | Outpatient (CLI) | payer OTHER, MEDICARE, SELFPAY ==
[2019-05-12 10:03] LABS: Abs Immature Grans 0.74 k/cumm (0.0-0.09); HCT 50.7 % (40.0-50.0); HGB 16.1 g/dL (13.5-17.5); Mean Corp. HGB Concentration 31.8 g/dL (32.0-36.0); Mean Corpuscular Volume 94.4 fL (80-95); Platelet Count 311 x1000/uL (130-400); RBC 5.37 m/cumm (4.50-6.00); RBC Distribution Width 15.5 % (11.8-14.1); White Blood Cell Count 19.38 k/cumm (4.4-10.8)
[2019-05-12 10:28] LABS: Absolute Lymphocyte Count 1.94 k/cumm (1.2-3.4); Absolute Monocyte Count 0.78 k/cumm (0.11-0.7); Diff Comment Manual Differential
[2019-05-12 10:29] LABS: Poikilocytes 2+
[2019-05-12 10:52] LABS: Anion Gap 8.3 mmol/L (3-11); BUN 24 mg/dL (7-18); CO2 32.7 mmol/L (21.0-32.0); CREATININE 1.44 mg/dL (0.70-1.30); Calcium 9.9 mg/dL (8.5-10.1); Chloride 101 mmol/L (98-107); Estimated GFR 49.08 (mL/min/1.73m2); Glucose 116 mg/dL (70-100); Potassium 4.2 mmol/L (3.5-5.1); Sodium 142 mmol/L (136-145)
== END 2019-05-12 09:58 ==
PROVIDERS: PCP Family Medicine; Visit Provider Nurse Practitioner Family
DX: J18.9 Pneumonia, unspecified organism (principal)
CPT/HCPCS: 36415; 80048; 85025

== ENCOUNTER 2019-05-26 08:53 | Outpatient (REF) | payer OTHER, SELFPAY ==
[2019-05-26 12:57] LABS: Abs Immature Grans 0.26 k/cumm (0.0-0.09); HCT 46.7 % (40.0-50.0); HGB 15.1 g/dL (13.5-17.5); Mean Corp. HGB Concentration 32.3 g/dL (32.0-36.0); Mean Corpuscular Hemoglobin 30.6 pg (27.0-33.0); Mean Corpuscular Volume 94.5 fL (80-95); Mean Platelet Volume 10.6 fL (8.0-11.0); RBC 4.94 m/cumm (4.50-6.00); RBC Distribution Width 15.7 % (11.8-14.1); White Blood Cell Count 11.97 k/cumm (4.4-10.8)
[2019-05-26 13:11] LABS: Anion Gap 14.9 mmol/L (3-11); BUN 19 mg/dL (7-18); CO2 24.1 mmol/L (21.0-32.0); Calcium 9.2 mg/dL (8.5-10.1); Chloride 107 mmol/L (98-107); Digoxin 0.25 ng/mL (0.90-2.00); Glucose 170 mg/dL (70-100); Potassium 3.4 mmol/L (3.5-5.1); Sodium 146 mmol/L (136-145)
[2019-05-26 14:47] LABS: Absolute Lymphocyte Count 1.92 k/cumm (1.2-3.4); Absolute Neutrophil Count 9.22 k/cumm (1.2-6.7); Atypical Lymphocytes % 1; Diff Comment Manual Differential; RBC Morphology Normal
[2019-05-26 14:48] LABS: Platelet Count 178 x1000/uL (130-400)
== END 2019-05-26 09:13 ==
LOC: NCHCN 08:53
PROVIDERS: PCP Family Medicine; Visit Provider Family Medicine
DX: I48.91 Unspecified atrial fibrillation (principal); Z79.01 Long term (current) use of anticoagulants; Z51.81 Encounter for therapeutic drug level monitoring
CPT/HCPCS: 80048; 80162; 85025

== ENCOUNTER 2019-06-28 11:35 | Outpatient (REF) | payer OTHER, SELFPAY ==
[2019-06-28 16:04] LABS: Digoxin 0.74 ng/mL (0.90-2.00)
== END 2019-06-28 11:55 ==
LOC: NCHCN 11:35
PROVIDERS: PCP Family Medicine; Visit Provider Family Medicine
DX: I48.91 Unspecified atrial fibrillation (principal); Z51.81 Encounter for therapeutic drug level monitoring
CPT/HCPCS: 80162

== ENCOUNTER 2019-07-06 15:19 | Inpatient (IN) | payer OTHER, SELFPAY ==
[2019-07-06] VITALS (41 sets, daily range): BP systolic 109–154; BP diastolic 53–107; PULSE 55–96; RESP 1–48; TEMP 36.5–36.7; O2SAT 85–99
--- NOTE | 2019-07-06 15:47 | ED.GENADUL_ITS ---
Discharge Plan Disposition Patient Disposition: [facility] INPATIENT Condition: Fair Discharge Details Chief Complaint: SOB Clinical Impression: Pneumonia Admit Date/Time: 07/06/19 18:37 Admit Provider: José Miguel Gardner Attending Provider: José Miguel Gardner Primary Care Provider: Radha Tobar ED Provider: Tatum Paulino Discharge Data Discharge Date/Time-TO BE ENTERED AT DEPARTURE: 07/06/19 19:47 Medical Decision Making Patient is a 64 year old male presenting today with c/c of SOB x 4 days. Patient has hx of pulmonary fibrosis, COPD, chronic respiratory failure with hypoxia, atrial fibrillation, HTN. Patient was admitted in May for pneumonia. Has not been on abx since. Denies CP, no pleuritic pain. denies cough. No fevers/chills. Has not been increasing his home O2, is chronically on 4L NC. On exam, patient appears to be chronically ill. Patient is 85% on 4L NC. Not tachycardic, afebrile. EKG reviewed by Dr. Huber, notable for a fib, patient has known afib. No evidence of acute ischemic changes. Patient evaluated by RT. They discussed using breathing treatments appropriately at home. Patient has been referred for pulmonary rehab historically, I feel he would be a good candidate with the # of admission secondary to his chronic pulmonary coniditions he has had. However, he has limitations with this secondary ot his insurance. Brought this to the attention of home care music therapist who will help to trouble shoot this issue. Reviewed cxr, concerned for pneumonia. Will begin Cefepime. CXR reviewed by radiologist: IMPRESSION: 1. Chronic interstitial lung disease. 2. New focal patchy opacities in the right midlung and left lower lung zone. Differential diagnosis includes multifocal pneumonia, as well as other nonspecific interstitial pneumonitis. WBC elevated at 14.89. Potassium 3.0, will replenish PO and IV. As the patient is fatigued, dyspnic and becomes presyncopal with exertion, plan for admission for pneumonia. Will consult with hospitalist. Consulted with Dr. Gardner who agrees to admission. HPI General Mode of arrival: wheelchair . Date/Time Provider Initiated Documentation: 07/06/19 15:47 . Limitations to Documentation: no limitations . Information obtained by: patient and RN notes reviewed . HPI Narrative: Patient is a 64 year old male, on home O2 chronically, presenting today with c/c of increased SOB for the past 4 days. States tht his O2 reading has been in the low to mid 80s despite remaining on his typical 4L NC. Denies any cough. No fevers/chill. No CP. Has not noted increased LE edema. No recent travel. Has been admitted multiple times htis year for SOB. Patient has home nebulizers but has not used them as they can make me cough, has felt tight. States that he can feel lightheaded with activity. Patient is anticoagulated on eliquis. Has been taking his medication as prescribed. Related Data Home Medications Medication Instructions Recorded Confirmed diphenhydramine HCl [Benadryl] 50 mg PO HS tab-cap 03/01/13 07/06/19 sumatriptan succinate [Imitrex] 50 mg PO PRN 03/01/13 07/06/19 sertraline 150 mg PO QAM 03/26/15 07/06/19 pantoprazole 40 mg PO DAILY tab-cap 03/19/18 07/06/19 Eliquis 5 mg PO BID #60 tablet 04/04/18 07/06/19 folic acid 1 mg PO DAILY #30 tab 04/04/18 07/06/19 metoprolol succinate 50 mg PO BID #60 tab 05/09/19 07/06/19 mometasone [Asmanex Twisthaler] 1 inh INHALATION BID #1 each 05/09/19 07/06/19 prednisone 40 mg PO DAILY #16 tab 05/09/19 07/06/19 albuterol sulfate [ProAir HFA] 2 puff INHALATION QID PRN 07/06/19 07/06/19 azathioprine 50 mg PO DAILY 07/07/19 07/07/19 digoxin 250 mcg PO DAILY 07/07/19 07/07/19 diltiazem HCl [Cardizem CD] 120 mg PO BID 07/07/19 07/07/19 ipratropium-albuterol 3 ml INHALATION QID 07/07/19 07/07/19 sulfamethoxazole-trimethoprim See Rx Instructions .ROUTE .COMPLEX 07/07/19 07/07/19 [Bactrim DS] Previous Rx's Medication Instructions Recorded Eliquis 5 mg PO BID #60 tablet 04/04/18 folic acid 1 mg PO DAILY #30 tab 04/04/18 metoprolol succinate 50 mg PO BID #60 tab 05/09/19 mometasone [Asmanex Twisthaler] 1 inh INHALATION BID #1 each 05/09/19 prednisone 40 mg PO DAILY #16 tab 05/09/19 Allergies Allergy/AdvReac Type Severity Reaction Status Date / Time No Known Allergies Allergy Unverified 07/06/19 15:36 General Stated Complaint: SOB JAYME: 2 Review of Systems Constitutional Reports as per HPI, Denies chills, Denies fever(s), Denies headache(s), Denies lethargy and Denies poor appetite Eyes Denies change in vision ENT Denies dizziness and Denies headache(s) Cardiovascular Reports as per HPI, Denies dyspnea and Denies dyspnea on exertion Respiratory Reports as per HPI, Denies chest congestion, Denies cough, Denies pain on inspiration, Denies pain with cough, Denies dyspnea, Denies dyspnea on exertion and Denies wheezing Gastrointestinal Reports as per HPI, Denies abdominal pain, Denies diarrhea, Denies nausea and Denies vomiting Genitourinary Denies system reviewed and no additional complaints, except as docu (denies change in urinary habits) Musculoskeletal Reports as per HPI and Denies back pain Integumentary/Breasts Reports as per HPI and Denies rash Neurologic Reports as per HPI, Denies dizziness and Denies headache(s) Allergic/Immunologic Denies wheezing [facility] Medical History Atrial fibrillation (Chronic) COPD (chronic obstructive pulmonary disease) (Chronic) GERD (Chronic) HTN (hypertension) (Chronic) IRRITABLE BOWEL (Chronic) Microscopic colitis (Chronic) Migraine (Chronic) Pulmonary fibrosis (Chronic) 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 Sister No problems noted. Social History Smoking/Tobacco Use Status: Former Tobacco Use Alcohol Intake: never Drug use: Never Substance use type: does not use Do you feel safe at home: Yes Do you feel safe in your relationship?: Yes Exam Const General: cooperative, healthy appearing, comfortable, no acute distress and well developed Nutritional Appearance: average body habitus and well nourished Orientation: alert, awake and oriented x3 [facility] Head: normal to inspection Ears: hearing grossly normal bilaterally Mouth: moist mucous membranes Chest Chest: normal inspection of the chest, normal palpation of entire chest wall and no crepitus Resp Effort & Inspection: normal respiratory effort, able to speak in complete sentences and no respiratory distress Auscultation: clear to auscultation bilaterally, no rales, no rhonchi and no wheezes Cardio Rate: regular rate Rhythm: regular rhythm Heart Sounds: S1 normal and S2 normal GI Inspection: normal to inspection, no edema and non-distended Palpation: soft, no hepatosplenomegaly, not firm, no guarding, not rigid and nontender Auscultation: normal bowel sounds Back/Spine/Pelvis Back: no CVA tenderness Thoracic/Lumbar Spine: thoracic and lumbar spine normal to inspection Skin General skin exam: no rashes or lesions noted Trauma: no lacerations or abrasions Neuro General: alert, awake and oriented x3 Cognition: normal cognition Speech: speech normal Gait: normal gait Extrem General: normal to inspection, normal capillary refill, no pedal edema, no calf tenderness and normal gait Psych Appearance: grossly normal and well kempt Mental Status: mental status grossly normal Speech and Movement: speech and movement normal Course Vital Signs Temperature 36.5 C 07/06/19 15:31 Pulse 81 07/06/19 15:31 Respiratory Rate 20 07/06/19 15:31 Blood Pressure 124/65 07/06/19 15:31 Pulse Oximetry 85 L 07/06/19 15:31 Temperature 36.5 C 07/06/19 15:31 Temperature Source Skin 07/06/19 15:31 Pulse 81 07/06/19 15:31 Respiratory Rate 20 07/06/19 15:31 Respiratory Effort Non-Labored 07/06/19 15:31 Blood Pressure 124/65 07/06/19 15:31 Blood Pressure Position Sitting 07/06/19 15:31 Pulse Oximetry 85 L 07/06/19 15:31 Oxygen Delivery Method Nasal Cannula 07/06/19 15:31 Oxygen Flow Rate 4 07/06/19 15:31 Pain Level 0 07/06/19 15:31
--- NOTE | 2019-07-06 15:47 | DI.RAD_ITS ---
SYMPTOM/DIAGNOSIS: SOB PA AND LATERAL CHEST: Comparison is made with 09/17/18. The heart size is within normal limits. Again noted are severe underlying fibrotic changes. There is increased density seen in the right upper lobe when compared with the previous exam. The lower lung clifton appear stable. No effusions are seen. IMPRESSION: Question of new right upper lobe infiltrate. Severe underlying fibrotic changes.
[2019-07-06] MEDS: Albuterol/Ipratropium 3 ML UPD VIAL UPD ×2 (16:28→23:05)
[2019-07-06 16:34] LABS: Abs Immature Grans 0.16 k/cumm (0.0-0.09); Absolute Basophil Count 0.03 k/cumm (0.0-0.2); Absolute Eosinophil Count 0.01 k/cumm (0.0-0.7); Absolute Lymphocyte Count 1.22 k/cumm (1.2-3.4); Basophils % 0.2; Eosinophils % 0.1; HCT 45.7 % (40.0-50.0); HGB 14.8 g/dL (13.5-17.5); Immature Grans % 1.1; Lymphocytes % 8.2; Mean Corp. HGB Concentration 32.4 g/dL (32.0-36.0); Mean Corpuscular Hemoglobin 30.6 pg (27.0-33.0); Mean Corpuscular Volume 94.6 fL (80-95); Mean Platelet Volume 10.4 fL (8.0-11.0); Monocytes % 8.1; Neutrophils % 82.3; Platelet Count 266 x1000/uL (130-400); RBC 4.83 m/cumm (4.50-6.00); RBC Distribution Width 15.1 % (11.8-14.1); White Blood Cell Count 14.89 k/cumm (4.4-10.8)
[2019-07-06 16:39] LABS: ALT 24 U/L (12-78); AST 12 U/L (15-37); Absolute Monocyte Count 1.21 k/cumm (0.11-0.7); Absolute Neutrophil Count 12.25 k/cumm (1.2-6.7); Albumin 3.6 g/dL (3.4-5.0); Alkaline Phosphatase 74 U/L (46-116); BUN 17 mg/dL (7-18); Bilirubin, Total 1.3 mg/dL (0.2-1.0); Chloride 102 mmol/L (98-107); Estimated GFR 46.82 (mL/min/1.73m2); Glucose 147 mg/dL (70-100); Magnesium 1.8 mg/dL (1.8-2.4); Sodium 142 mmol/L (136-145); Total Protein 7.3 g/dL (6.4-8.2)
[2019-07-06 16:44] LABS: Troponin I < 0.05 ng/mL (0.00-0.06)
--- NOTE | 2019-07-06 16:53 | DI.VRAD_ITS ---
EXAM: XR Chest, 2 Views EXAM DATE/TIME: 07/06/2019 3:49 PM CLINICAL HISTORY: 64 years old, male; Shortness of breath TECHNIQUE: Imaging protocol: XR of the chest, 2 views. COMPARISON: CR XR CHEST 2V PA LATERAL 09/17/2018 12:59 PM FINDINGS: Diffuse bilateral reticulonodular opacities are consistent with known chronic interstitial lung disease. Small focal areas of patchy opacity are present in the right midlung zone and left lateral lower lobe. The findings are consistent with nonspecific pneumonitis, possibly infective. No pleural effusion or pneumothorax is identified. The cardiomediastinal silhouette and pulmonary vasculature are within normal limits. IMPRESSION: 1. Chronic interstitial lung disease. 2. New focal patchy opacities in the right midlung and left lower lung zone. Differential diagnosis includes multifocal pneumonia, as well as other nonspecific interstitial pneumonitis. Dictated and Authenticated by: Judson Hernandez MD. Ordering:KANDACE Winn MD
[2019-07-06] MEDS: CEFEPIME 2 GM in Normal Saline 100 ML IVPB (16:56)
[2019-07-06 17:02] LABS: NT-proBNP 1321 pg/mL
[2019-07-06] MEDS: Potassium Chloride 20 MEQ TABCR 40 MEQ PO (17:19)
[2019-07-06] MEDS: POTASSIUM CHLORIDE 10 MEQ/100 ML BAG 100 MEQ IVPB (17:19)
[2019-07-06] MEDS: Normal Saline 500 ML IV (17:19)
--- NOTE | 2019-07-06 18:27 | W.PM.HP.N ---
Date of service: 07/06/19 Time of Service: 18:27 Assessment and Plan (1) Pneumonia: Current visit: Yes Status: Acute Pneumonia in setting of chronic lung disease. I think we can treat him as community acquired (last in house over 2 months ago). I do not think we need higher doses of baseline 20 mg prednisone at present, neither for stress dosing (as he looks non-toxic) nor for COPD (as he has responded to single updraft and sats are now back at baseline). Will treat with Rocephin?Zithromax, and usal meds as iss otherwise. Reveiwed ADs, requests Full Code. History of Present Illness Chief Complaint: SOB Narrative: 64 male with pulmonary fibrosis and COPD, here with one weeek of SOB and few days of cough. IN ER bilateral infiltrates noted, given dose Cefepime, updraft and admitted for further management. Says he feels fairly well at present, asking about going home, but decides it is best to stay. 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 Sister No problems noted. Social History Smoking/Tobacco Use Status: Former Tobacco Use Alcohol Intake: never Drug use: Never Substance use type: does not use Do you feel safe at home: Yes Do you feel safe in your relationship?: Yes Meds Home Medications Medication Instructions Recorded Confirmed Type diphenhydramine HCl [Benadryl] 50 mg PO HS tab-cap 03/01/13 07/06/19 History sumatriptan succinate [Imitrex] 50 mg PO PRN 03/01/13 07/06/19 History sertraline 150 mg PO QAM 03/26/15 07/06/19 History pantoprazole 40 mg PO DAILY tab-cap 03/19/18 07/06/19 History Eliquis 5 mg PO BID #60 tablet 04/04/18 07/06/19 Rx diltiazem HCl 120 mg PO DAILY #30 capcr 04/04/18 07/06/19 Rx folic acid 1 mg PO DAILY #30 tab 04/04/18 07/06/19 Rx metoprolol succinate 50 mg PO BID #60 tab 05/09/19 07/06/19 Rx mometasone [Asmanex Twisthaler] 1 inh INHALATION BID #1 each 05/09/19 07/06/19 Rx prednisone 40 mg PO DAILY #16 tab 05/09/19 07/06/19 Rx albuterol sulfate [ProAir HFA] 2 puff INHALATION QID PRN 07/06/19 07/06/19 History Allergies Allergy/AdvReac Type Severity Reaction Status Date / Time No Known Allergies Allergy Unverified 07/06/19 15:36 Exam Narrative Exam Narrative: 124/65, 81, 36.5, 85% (last recorded, during my exam sat 91-92%, on 4L). HEENT slightly Cushingoid; neck supple; lungs bronchial but clear; heart irr/irr, somewhat distant; abdomen soft NT; /rectal deferred; extr no edema; neuro Ox3, non-focal Results Labs : 07/06/19 16:05 07/06/19 16:05 Laboratory Results - last 24 hr 07/06/19 07/06/19 16:05 16:05 WBC 14.89 H RBC 4.83 Hgb 14.8 Hct 45.7 MCV 94.6 MCH 30.6 MCHC 32.4 RDW 15.1 H Plt Count 266 MPV 10.4 Immature Gran % 1.1 Neutrophils % 82.3 Lymphocytes % 8.2 Monocytes % 8.1 Eosinophils % 0.1 Basophils % 0.2 Absolute Neutrophils 12.25 H Absolute Lymphocytes 1.22 Absolute Monocytes 1.21 H Absolute Eosinophils 0.01 Absolute Basophils 0.03 Sodium 142 Potassium 3.0 L Chloride 102 Carbon Dioxide 29.0 Anion Gap 11.0 BUN 17 Creatinine 1.50 H Estimated GFR/1.73 m2 46.82 Glucose 147 H Calcium 9.0 Magnesium 1.8 Total Bilirubin 1.3 H AST 12 L ALT 24 Alkaline Phosphatase 74 Troponin I < 0.05 NT-Pro-B Natriuret Pep 1321 H Total Protein 7.3 Albumin 3.6 Last Vital Signs Temp 36.5 C 07/06/19 15:31 Pulse 81 07/06/19 15:31 Resp 20 07/06/19 15:31 BP 124/65 07/06/19 15:31 Pulse Ox 85 L 07/06/19 15:31
[2019-07-06] MEDS: Apixaban 5 MG TAB PO (20:46)
[2019-07-06] MEDS: AZITHROMYCIN 250 MG in Normal Saline 250 ML IVPB (21:09)
[2019-07-06] MEDS: Acetaminophen 325 MG TAB 650 MG PO (22:27)
[2019-07-06] MEDS: diphenhydrAMINE 25 MG CAP 50 MG PO (23:00)
[2019-07-07] VITALS (8 sets, daily range): BP systolic 123–159; BP diastolic 79–93; PULSE 70–94; RESP 1–20; TEMP 36.6–37.1; O2SAT 91–98
[2019-07-07] MEDS: cefTRIAXone 1,000 MG in Normal Saline 50 ML 100 MG IVPB ×2 (00:19→22:15)
[2019-07-07] MEDS: Albuterol/Ipratropium 3 ML UPD VIAL UPD ×3 (06:28→20:25)
[2019-07-07] MEDS: Metoprolol CR 50 MG TABCR PO (08:03)
[2019-07-07] MEDS: Apixaban 5 MG TAB PO ×2 (08:03→20:23)
[2019-07-07] MEDS: predniSONE 20 MG TAB PO (08:03)
[2019-07-07] MEDS: dilTIAZem CD 120 MG CAPCR PO ×2 (08:03→20:23)
[2019-07-07] MEDS: Folic Acid 1 MG TAB PO (08:03)
[2019-07-07] MEDS: Pantoprazole 40 MG TABCR PO (08:03)
[2019-07-07] MEDS: Sertraline 50 MG TAB 150 MG PO (08:08)
[2019-07-07 08:38] LABS: Abs Immature Grans 0.14 k/cumm (0.0-0.09); Absolute Basophil Count 0.02 k/cumm (0.0-0.2); Absolute Eosinophil Count 0.08 k/cumm (0.0-0.7); Absolute Lymphocyte Count 1.86 k/cumm (1.2-3.4); Absolute Monocyte Count 1.02 k/cumm (0.11-0.7); Absolute Neutrophil Count 6.88 k/cumm (1.2-6.7); Basophils % 0.2; Eosinophils % 0.8; HCT 41.5 % (40.0-50.0); HGB 13.2 g/dL (13.5-17.5); Immature Grans % 1.4; Lymphocytes % 18.6; Mean Corp. HGB Concentration 31.8 g/dL (32.0-36.0); Mean Corpuscular Hemoglobin 30.2 pg (27.0-33.0); Mean Platelet Volume 10.2 fL (8.0-11.0); Monocytes % 10.2; Neutrophils % 68.8; Platelet Count 197 x1000/uL (130-400); RBC 4.37 m/cumm (4.50-6.00)
[2019-07-07 08:49] LABS: Anion Gap 10.3 mmol/L (3-11); BUN 14 mg/dL (7-18); CO2 27.7 mmol/L (21.0-32.0); CREATININE 0.96 mg/dL (0.70-1.30); Calcium 8.2 mg/dL (8.5-10.1); Chloride 106 mmol/L (98-107); Glucose 111 mg/dL (70-100); Magnesium 1.9 mg/dL (1.8-2.4); Sodium 144 mmol/L (136-145)
[2019-07-07 08:54] LABS: Potassium 2.7 mmol/L (3.5-5.1)
[2019-07-07] MEDS: Mometasone 220 MCG 14 DOSE INHALER 1 PUFF IH ×2 (09:07→20:27)
[2019-07-07] MEDS: Magnesium Oxide 400 MG TAB PO ×2 (09:40→09:41)
[2019-07-07] MEDS: Potassium Chloride 20 MEQ TABCR 40 MEQ PO ×2 (09:40→16:38)
[2019-07-07] MEDS: POTASSIUM CHLORIDE 20 MEQ/100 ML BAG 50 MEQ IVPB (09:41)
--- NOTE | 2019-07-07 10:34 | PHARADMIT ---
Addendum entered by Sherita Blake 07/13/19 14:35: Pharmacy Note Subjective if no improbvemnet by tomorrow MD expects transfer to [facility] [place] Objective vs ok, WBC down 22.36 Assessment hyaluronadase ordered for infiltrated line Plan evaluate vancomycin trough ordered for tomorrow Addendum entered by Marcos Saldana III 07/10/19 13:48: Pharmacy Note Subjective Patient should be ready for discharge home today. Awaiting MD to evaluate readiness. Objective VS-OK K+3.1 Assessment Levaquin IV to PO upon discharge Plan Patient going home Original Note: Admission Pharmacy Clinical Review PNEUMONIA, hX COPD, Pulmonary Fibrosis Code Status Full Code Current Weight Wgt-113.48 kg Renally Cleared and Narrow Therapeutic Index Meds CrCl~ 88 mL/min Meds-OK QTc Value / Action Taken QTc-395 ok BP Control, Fever BP- 123/92 Tmax-37.1C Electrolytes reviewed Na- 144 K+2.7 Mag-1.9 DVT Prophylaxis Apixaban Opiate Usage / Scheduled Bowel Regimen Ordered No No Plt/SCr for Heparin / Enoxaparin Plts- 197 SCr-0.96 INR for Warfarin na H/H stable, WBC/Bands H&H- 13.2/41.5 WBC-10 Antibiotic appropriateness Azithromycin, Rocephin Cultures and Sensitivities NONE Surgical ABX d/c within 24 hr NA DM control / Insulin Dosing BG- 111 Heart Failure (Check EF%) (ALYSA's, B-Block, Diuretics) Diltiazem-CD, Toprol-XL, IV to PO Switch No Home Meds Reviewed Yes Home Meds Not Ordered Azathioprine, Bactrim-DS, Digoxin Comments
--- NOTE | 2019-07-07 11:10 | CHAPLAIN ---
Neil was sitting up in the chair when I visited. He was pleasant and engaged in a conversation. He is from [facility] and expects some visitors later today. He is hoping they remember to bring his iPad. I let him know that we have laptops for patients, if the iPad is forgotten. I explained my role and offered support.
--- NOTE | 2019-07-07 12:47 | PDOC.CMIN ---
- If Service Date Differs Date of service: 07/07/19 Time of Service: 12:47 Care Management Initial Assess REASON FOR HOSPITALIZATION:: Pneumonia PAST MEDICAL HISTORY/PAST SURGICAL HISTORY:: Medical History: Atrial fibrillation (Chronic). COPD (chronic obstructive pulmonary disease) (Chronic). GERD (Chronic). HTN (hypertension) (Chronic). IRRITABLE BOWEL (Chronic). Microscopic colitis (Chronic). Migraine (Chronic). Pulmonary fibrosis (Chronic). 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 Surgical History: CARDIAC ABLATION (Inactive 06/06/11). Cholecystectomy (Chronic) PREVIOUS FUNCTIONAL STATUS/SOCIAL/FAMILY SUPPORTS:: Kennedy lives with his and youngest son Zachary in a single family home in [place], [place] 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 Kennedy has 3 children, all of whom live fairly close by. He also has many good friends and a strong support system in the community. He is oxygen dependent at 4 liters continuously but is independent with all of his ADLs and care. CURRENT FUNCTIONAL STATUS:: Kennedy was sitting up in bed when CM came to visit. He was pleasant and cooperative and readily engaged in conversation. Kennedy expressed interest in attending Pulmonary Rehab; he feels this would be really helpful for him. He has investigated this in the past and there have been issues with his insurance. Lily from [facility] is working to resolve this issue with him. ADVANCE DIRECTIVES:: On file at [facility]. [facility] [phone] Has patient been provided with information about the portal?: No Did the patient sign up for the portal?: No CODE STATUS:: Full Code INSURANCE COVERAGE / FINANCIAL ISSUES:: [employer] [facility] Medicare. Financial Assist 57 CURRENT HOME/COMMUNITY SERVICES/EQUIPMENT:: Home oxygen PRIMARY CARE PHYSICIAN:: Radha Tobar POTENTIAL DISCHARGE NEEDS:: Folllow up with PCP and discharge plan of care PATIENT/FAMILY EDUCATION NEEDS:: Discharge plan, limitations, follow up plan of care, Ask Me Three. ANTICIPATED BARRIERS TO DISCHARGE:: none identified TRANSPORTATION:: via private vehicle with family when ready PLAN:: Neil is being treated for pneumonia. He will likely be discharged home with no new services and, hopefully, be able to attend Pulmonary Rehab. CM will continue to support patient, family and discharge planning needs identified.
--- NOTE | 2019-07-07 15:45 | W.PM.PROGNOT ---
Date of Service Date of service: 07/07/19 Time of Service: 15:45 Assessment and Plan (1) Pneumonia: Current visit: Yes Status: Acute JASON pneumonia noted on chest x-ray. His leukocytosis has resolved. He remains afebrile. He is on his baseline oxygen at 4 L/min. Continue treatment for community-acquired pneumonia with azithromycin and ceftriaxone. Continue home dose of prednisone and nebulizer treatments. Does not appear to need high dose steroids at this time. Continue to monitor. (2) COPD (chronic obstructive pulmonary disease): Current visit: No Status: Chronic Does not appear to be in acute exacerbation. Continue home inhalers. (3) Pulmonary fibrosis: Current visit: No Status: Chronic As above. Continue oxygen at 4lpm. (4) Atrial fibrillation with controlled ventricular rate: Current visit: No Status: Chronic Anticoagulated with eliquis. Continue metoprolol and cardizem. Obtain digoxin level. Obtain accurate medication list from PCP. (5) DVT prophylaxis: Current visit: No Status: Acute Therapeutic on eliquis. (6) Discharge planning issues: Current visit: No Status: Acute He is a FULL CODE. This case was discussed with Dr. Rizzo who is in agreement. Subjective Interval history since last seen: Neil Worthington reports feeing better today. He continues to cough and is producing thick green/yellow sputum. He reports that he has been feeling ill at home for about a week. He continues to have shortness of breath, more than his baseline. He denies wheezing. He wears oxygen at home at 4 L/min, he is currently on his baseline oxygen requirement. He denies chest pain/pressure, palpitations, he is eating and drinking and tolerating his diet, no nausea, abdominal pain or vomiting. He denies dysuria or hematuria. He is having normal bowel movements, he had a bowel movement today. Exam Narrative Exam Narrative: General: 64-year-old man, sitting up at the edge of his bed eating lunch, in no acute distress. Alert and oriented, answers questions appropriately. HEENT: normocephalic, atraumatic. Pupils equal and round, extraocular movements intact, mucous membranes moist. Neck: Supple, no JVD. Respiratory: Respirations appear even and unlabored, does not appear to be using accessory muscles. Lung sounds with rales to right base, slightly diminished left base, no wheezing noted. Cardiovascular: Heart sounds irregularly irregular, no murmur appreciated. Non-tachycardic. GI: Normoactive bowel sounds x4 quadrants, abdomen soft, nontender on palpation, nondistended. Extremities: Well-perfused, no clubbing, cyanosis or edema. Objective Objective Clinical Data: Abnormal lab results 07/06/19 07/06/19 07/07/19 Range/Units 16:05 16:05 08:25 WBC 14.89 H (4.4-10.8) k/cumm RBC (4.50-6.00) m/cumm Hgb (13.5-17.5) g/dL MCHC (32.0-36.0) g/dL RDW 15.1 H (11.8-14.1) % Absolute Neutrophils 12.25 H (1.2-6.7) k/cumm Absolute Monocytes 1.21 H (0.11-0.7) k/cumm Potassium 3.0 L 2.7 L* (3.5-5.1) mmol/L Creatinine 1.50 H (0.70-1.30) mg/dL Glucose 147 H 111 H (70-100) mg/dL Calcium 8.2 L (8.5-10.1) mg/dL Total Bilirubin 1.3 H (0.2-1.0) mg/dL AST 12 L (15-37) U/L NT-Pro-B Natriuret Pep 1321 H ( - 299) pg/mL 07/07/19 Range/Units 08:25 WBC (4.4-10.8) k/cumm RBC 4.37 L (4.50-6.00) m/cumm Hgb 13.2 L (13.5-17.5) g/dL MCHC 31.8 L (32.0-36.0) g/dL RDW 15.0 H (11.8-14.1) % Absolute Neutrophils 6.88 H (1.2-6.7) k/cumm Absolute Monocytes 1.02 H (0.11-0.7) k/cumm Potassium (3.5-5.1) mmol/L Creatinine (0.70-1.30) mg/dL Glucose (70-100) mg/dL Calcium (8.5-10.1) mg/dL Total Bilirubin (0.2-1.0) mg/dL AST (15-37) U/L NT-Pro-B Natriuret Pep ( - 299) pg/mL Vital Signs Temperature 37.1 C 07/07/19 07:50 Temperature Source Tympanic 07/07/19 07:50 Pulse 70 07/07/19 12:06 Pulse Rhythm Irregular 07/07/19 08:15 Pulse 68 07/06/19 19:00 Respiratory Rate 16 07/07/19 12:06 Respiratory Effort Non-Labored 07/07/19 08:15 Respiratory Depth Normal 07/07/19 08:15 Respiratory Pattern Normal 07/07/19 08:15 Blood Pressure 123/92 H 07/07/19 07:50 Blood Pressure Mean 84 07/06/19 18:46 Blood Pressure Position Sitting 07/06/19 15:31 Pulse Oximetry 93 L 07/07/19 12:06 Oxygen Delivery Method Nasal Cannula 07/07/19 11:55 Oxygen Flow Rate 4 07/07/19 11:55 Pain Level 0 07/07/19 00:00 Comment 07/06/19 19:50 Intake & Output 07/06/19 07/07/19 07/07/19 23:59 11:59 23:59 Intake Total 850 / 850 520 / 760 240 / 760 Output Total 550 / 550 Balance 850 / 850 -30 / 210 240 / 210 Weight 113.398 kg Intake: IV 850 / 850 150 / 150 Oral 370 / 610 240 / 610 Output: Urine 550 / 550 Other: Urine Color Yellow Light Hazel Urine Appearance Clear Clear Urine Odor None Strong Stool Size Large Stool Characteristics Soft Voiding Methods Toilet Laboratory Results WBC 10.00 k/cumm (4.4-10.8) D 07/07/19 08:25 RBC 4.37 m/cumm (4.50-6.00) L 07/07/19 08:25 Hgb 13.2 g/dL (13.5-17.5) L 07/07/19 08:25 Hct 41.5 % (40.0-50.0) 07/07/19 08:25 MCV 95.0 fL (80-95) 07/07/19 08:25 MCH 30.2 pg (27.0-33.0) 07/07/19 08:25 MCHC 31.8 g/dL (32.0-36.0) L 07/07/19 08:25 RDW 15.0 % (11.8-14.1) H 07/07/19 08:25 Plt Count 197 x1000/uL (130-400) 07/07/19 08:25 MPV 10.2 fL (8.0-11.0) 07/07/19 08:25 Immature Gran % 1.4 07/07/19 08:25 68.8 07/07/19 08:25 18.6 07/07/19 08:25 10.2 07/07/19 08:25 0.8 07/07/19 08:25 0.2 07/07/19 08:25 Absolute Neutrophils 6.88 k/cumm (1.2-6.7) H 07/07/19 08:25 Absolute Lymphocytes 1.86 k/cumm (1.2-3.4) 07/07/19 08:25 Absolute Monocytes 1.02 k/cumm (0.11-0.7) H 07/07/19 08:25 Absolute Eosinophils 0.08 k/cumm (0.0-0.7) 07/07/19 08:25 Absolute Basophils 0.02 k/cumm (0.0-0.2) 07/07/19 08:25 Sodium 144 mmol/L (136-145) 07/07/19 08:25 Potassium 2.7 mmol/L (3.5-5.1) L* 07/07/19 08:25 Chloride 106 mmol/L (98-107) 07/07/19 08:25 Carbon Dioxide 27.7 mmol/L (21.0-32.0) 07/07/19 08:25 10.3 mmol/L (3-11) 07/07/19 08:25 BUN 14 mg/dL (7-18) 07/07/19 08:25 0.96 mg/dL (0.70-1.30) D 07/07/19 08:25 >= 60.00 (mL/min/1.73m2) 07/07/19 08:25 Glucose 111 mg/dL (70-100) H 07/07/19 08:25 Calcium 8.2 mg/dL (8.5-10.1) L 07/07/19 08:25 Magnesium 1.9 mg/dL (1.8-2.4) 07/07/19 08:25 1.3 mg/dL (0.2-1.0) H 07/06/19 16:05 AST 12 U/L (15-37) L 07/06/19 16:05 ALT 24 U/L (12-78) 07/06/19 16:05 74 U/L (46-116) 07/06/19 16:05 < 0.05 ng/mL (0.00-0.06) 07/06/19 16:05 NT-Pro-B Natriuret Pep 1321 pg/mL (-299) H 07/06/19 16:05 7.3 g/dL (6.4-8.2) 07/06/19 16:05 3.6 g/dL (3.4-5.0) 07/06/19 16:05
[2019-07-07 16:52] LABS: Digoxin 0.95 ng/mL (0.90-2.00)
[2019-07-07] MEDS: AZITHROMYCIN 250 MG in Normal Saline 250 ML IVPB (20:24)
[2019-07-07] MEDS: diphenhydrAMINE 25 MG CAP 50 MG PO (22:07)
[2019-07-08] VITALS (11 sets, daily range): BP systolic 113–154; BP diastolic 74–93; PULSE 55–90; RESP 1–20; TEMP 36.6; O2SAT 94–98
[2019-07-08] MEDS: Albuterol/Ipratropium 3 ML UPD VIAL UPD ×3 (06:52→18:00)
[2019-07-08 07:27] LABS: Abs Immature Grans 0.16 k/cumm (0.0-0.09); Absolute Basophil Count 0.02 k/cumm (0.0-0.2); Absolute Lymphocyte Count 2.12 k/cumm (1.2-3.4); Absolute Monocyte Count 0.97 k/cumm (0.11-0.7); Basophils % 0.2; HCT 41.5 % (40.0-50.0); HGB 13.1 g/dL (13.5-17.5); Immature Grans % 1.4; Lymphocytes % 18.5; Mean Corp. HGB Concentration 31.6 g/dL (32.0-36.0); Mean Corpuscular Hemoglobin 30.2 pg (27.0-33.0); Mean Corpuscular Volume 95.6 fL (80-95); Mean Platelet Volume 10.1 fL (8.0-11.0); Monocytes % 8.5; Neutrophils % 70.4; Platelet Count 209 x1000/uL (130-400); RBC 4.34 m/cumm (4.50-6.00); RBC Distribution Width 15.1 % (11.8-14.1); White Blood Cell Count 11.47 k/cumm (4.4-10.8)
[2019-07-08 07:39] LABS: Anion Gap 9.4 mmol/L (3-11); BUN 11 mg/dL (7-18); CO2 28.6 mmol/L (21.0-32.0); CREATININE 0.94 mg/dL (0.70-1.30); Calcium 8.5 mg/dL (8.5-10.1); Chloride 108 mmol/L (98-107); Glucose 101 mg/dL (70-100); Potassium 3.2 mmol/L (3.5-5.1); Sodium 146 mmol/L (136-145)
[2019-07-08 08:00] LABS: Absolute Eosinophil Count 0.11 k/cumm (0.0-0.7); Absolute Neutrophil Count 8.07 k/cumm (1.2-6.7)
[2019-07-08] MEDS: Folic Acid 1 MG TAB PO (09:03)
[2019-07-08] MEDS: Sertraline 50 MG TAB 150 MG PO (09:03)
[2019-07-08] MEDS: dilTIAZem CD 120 MG CAPCR PO ×2 (09:04→20:30)
[2019-07-08] MEDS: Apixaban 5 MG TAB PO ×2 (09:05→20:30)
[2019-07-08] MEDS: Digoxin 0.25 MG TAB PO (09:05)
[2019-07-08] MEDS: Metoprolol CR 50 MG TABCR 100 MG PO (09:06)
[2019-07-08] MEDS: Pantoprazole 40 MG TABCR PO (09:06)
[2019-07-08] MEDS: predniSONE 20 MG TAB PO (09:07)
[2019-07-08] MEDS: Mometasone 220 MCG 14 DOSE INHALER 1 PUFF IH ×2 (10:47→20:30)
[2019-07-08] MEDS: Potassium Chloride 20 MEQ TABCR 40 MEQ PO ×2 (10:59→15:53)
[2019-07-08 15:25] LABS: Bilirubin Negative (Negative); Blood Trace-lysed (Negative); Clarity Turbid (Clear); Glucose Negative (Negative); Ketones 15 mg/dL (Negative); Leukocyte Esterase Negative (Negative); Nitrite Negative (Negative); Specific Gravity >= 1.030 (1.005-1.025); Urobilinogen 0.2 EU/dL (Up TO 0.2)
[2019-07-08 15:42] LABS: Crystals Many Amorphous HPF (Negative)
[2019-07-08 15:43] LABS: Casts Negative LPF (Negative); Epithelial Cells Negative HPF (Negative); Mucus Negative (Negative); RBC Negative (0-2); WBC Negative HPF (0-5)
[2019-07-08 15:44] LABS: C & S Indicated? No
--- NOTE | 2019-07-08 15:45 | W.PM.PROGNOT ---
Date of Service Date of service: 07/08/19 Time of Service: 15:50 Assessment and Plan (1) Pneumonia: Current visit: Yes Status: Acute JASON pneumonia noted on chest x-ray. His white blood cell count increased slightly today. He remains afebrile. He is feeling better, his symptoms are improving. He is on his baseline oxygen at 4 L/min. Continue treatment for community-acquired pneumonia, transition to oral antibiotics today. Continue home dose of prednisone and nebulizer treatments. Does not appear to need high dose steroids at this time. Continue to monitor. Reassess leukocytosis tomorrow morning. (2) COPD (chronic obstructive pulmonary disease): Current visit: No Status: Chronic Does not appear to be in acute exacerbation. Continue home inhalers. (3) Pulmonary fibrosis: Current visit: No Status: Chronic As above. Continue oxygen at 4lpm. (4) Atrial fibrillation with controlled ventricular rate: Current visit: No Status: Chronic Anticoagulated with eliquis. Continue metoprolol, cardizem and digoxin per home doses. Continue to monitor heart rate. (5) Hypokalemia: Current visit: Yes Status: Acute Replete and monitor. (6) DVT prophylaxis: Current visit: No Status: Acute Therapeutic on eliquis. (7) Discharge planning issues: Current visit: No Status: Acute He is a FULL CODE. This case was discussed with Dr. Rizzo who is in agreement. Subjective Interval history since last seen: Neil Worthington continues to report that he feels better than he did at the time of his admission. He continues to have some shortness of breath with exertion that is worse than baseline. He does not feel wheezy. His cough has improved, he is no longer producing sputum. His oxygen saturation is improving, currently 98% on 4 L. He wears oxygen at home at 4 L/min. He denies chest pain/pressure, palpitations, he is eating and drinking and tolerating his diet, his appetite has improved, he denies nausea, abdominal pain or vomiting. He denies dysuria or hematuria. He is having normal bowel movements, he had a bowel movement today. He is eager for discharge home. Exam Narrative Exam Narrative: General: 64-year-old man, sitting up in bed, in no acute distress. Pleasant and cooperative. Alert and oriented, answers questions appropriately. HEENT: normocephalic, atraumatic. Pupils equal and round, extraocular movements intact, mucous membranes moist. Neck: Supple, no JVD. Respiratory: Respirations appear even and unlabored, does not appear to be using accessory muscles. Lung sounds with diminished bases bilaterally, few scattered wheezes throughout. Cardiovascular: Heart sounds irregularly irregular, no murmur appreciated. Non-tachycardic. GI: Normoactive bowel sounds x4 quadrants, abdomen soft, nontender on palpation, nondistended. Extremities: Well-perfused, no clubbing, cyanosis or edema. Objective Objective Clinical Data: Abnormal lab results 07/08/19 07/08/19 07/08/19 Range/Units 06:47 06:47 13:35 WBC 11.47 H (4.4-10.8) k/cumm RBC 4.34 L (4.50-6.00) m/cumm Hgb 13.1 L (13.5-17.5) g/dL MCV 95.6 H (80-95) fL MCHC 31.6 L (32.0-36.0) g/dL RDW 15.1 H (11.8-14.1) % Absolute Neutrophils 8.07 H (1.2-6.7) k/cumm Absolute Monocytes 0.97 H (0.11-0.7) k/cumm Sodium 146 H (136-145) mmol/L Potassium 3.2 L (3.5-5.1) mmol/L Chloride 108 H (98-107) mmol/L Glucose 101 H (70-100) mg/dL Ur Specific Hersey >= 1.030 H (1.005-1.025) Urine Protein 30 H (Negative) mg/dL Urine Ketones 15 H (Negative) mg/dL Urine Blood Trace-lysed H (Negative) Vital Signs Temperature 36.6 C 07/08/19 07:00 Temperature Source Tympanic 07/08/19 07:00 Pulse 88 07/08/19 12:36 Pulse Rhythm Regular 07/08/19 08:35 Pulse 68 07/06/19 19:00 Respiratory Rate 18 07/08/19 12:36 Respiratory Effort Non-Labored 07/08/19 08:35 Respiratory Depth Shallow 07/08/19 08:35 Respiratory Pattern Normal 07/08/19 08:35 Blood Pressure 154/93 H 07/08/19 07:00 Blood Pressure Mean 84 07/06/19 18:46 Blood Pressure Position Sitting 07/06/19 15:31 Pulse Oximetry 98 07/08/19 12:36 Oxygen Delivery Method Room Air 07/08/19 12:32 Oxygen Flow Rate 0 07/08/19 12:32 Pain Level 0 07/08/19 07:00 Comment 07/06/19 19:50 Intake & Output 07/07/19 07/08/19 07/08/19 23:59 11:59 23:59 Intake Total 880 / 1400 255 / 255 Balance 880 / 850 255 / 255 Intake: IV 400 / 550 10 Oral 480 / 850 245 / 245 Other: Urine Color Yellow Pale Yellow Urine Appearance Clear Clear Clear Urine Odor Normal Comment Per pt report, urine is pale yellow and normal. Pt denies discomfort with voiding at this time. Voiding Methods Toilet Toilet Toilet Laboratory Results WBC 11.47 k/cumm (4.4-10.8) H 07/08/19 06:47 RBC 4.34 m/cumm (4.50-6.00) L 07/08/19 06:47 Hgb 13.1 g/dL (13.5-17.5) L 07/08/19 06:47 Hct 41.5 % (40.0-50.0) 07/08/19 06:47 MCV 95.6 fL (80-95) H 07/08/19 06:47 MCH 30.2 pg (27.0-33.0) 07/08/19 06:47 MCHC 31.6 g/dL (32.0-36.0) L 07/08/19 06:47 RDW 15.1 % (11.8-14.1) H 07/08/19 06:47 Plt Count 209 x1000/uL (130-400) 07/08/19 06:47 MPV 10.1 fL (8.0-11.0) 07/08/19 06:47 Immature Gran % 1.4 07/08/19 06:47 70.4 07/08/19 06:47 18.5 07/08/19 06:47 8.5 07/08/19 06:47 1.0 07/08/19 06:47 0.2 07/08/19 06:47 Absolute Neutrophils 8.07 k/cumm (1.2-6.7) H 07/08/19 06:47 Absolute Lymphocytes 2.12 k/cumm (1.2-3.4) 07/08/19 06:47 Absolute Monocytes 0.97 k/cumm (0.11-0.7) H 07/08/19 06:47 Absolute Eosinophils 0.11 k/cumm (0.0-0.7) 07/08/19 06:47 Absolute Basophils 0.02 k/cumm (0.0-0.2) 07/08/19 06:47 Sodium 146 mmol/L (136-145) H 07/08/19 06:47 Potassium 3.2 mmol/L (3.5-5.1) L 07/08/19 06:47 Chloride 108 mmol/L (98-107) H 07/08/19 06:47 Carbon Dioxide 28.6 mmol/L (21.0-32.0) 07/08/19 06:47 9.4 mmol/L (3-11) 07/08/19 06:47 BUN 11 mg/dL (7-18) 07/08/19 06:47 0.94 mg/dL (0.70-1.30) 07/08/19 06:47 >= 60.00 (mL/min/1.73m2) 07/08/19 06:47 Glucose 101 mg/dL (70-100) H 07/08/19 06:47 Calcium 8.5 mg/dL (8.5-10.1) 07/08/19 06:47 Magnesium 2.0 mg/dL (1.8-2.4) 07/08/19 06:47 1.3 mg/dL (0.2-1.0) H 07/06/19 16:05 AST 12 U/L (15-37) L 07/06/19 16:05 ALT 24 U/L (12-78) 07/06/19 16:05 74 U/L (46-116) 07/06/19 16:05 < 0.05 ng/mL (0.00-0.06) 07/06/19 16:05 NT-Pro-B Natriuret Pep 1321 pg/mL (-299) H 07/06/19 16:05 7.3 g/dL (6.4-8.2) 07/06/19 16:05 3.6 g/dL (3.4-5.0) 07/06/19 16:05 Yellow (Yellow) 07/08/19 13:35 Turbid (Clear) 07/08/19 13:35 6.0 (5-8) 07/08/19 13:35 Ur Specific Hersey >= 1.030 (1.005-1.025) H 07/08/19 13:35 30 mg/dL (Negative) H 07/08/19 13:35 15 mg/dL (Negative) H 07/08/19 13:35 Trace-lysed (Negative) H 07/08/19 13:35 Negative (Negative) 07/08/19 13:35 Negative (Negative) 07/08/19 13:35 0.2 EU/dL (Up TO 0.2) 07/08/19 13:35 Ur Leukocyte Esterase Negative (Negative) 07/08/19 13:35 Negative (0-2) 07/08/19 13:35 Negative HPF (0-5) 07/08/19 13:35 Ur Epithelial Cells Negative HPF (Negative) 07/08/19 13:35 Many amorphous HPF (Negative) 07/08/19 13:35 HPF (Negative) 07/08/19 13:35 Negative LPF (Negative) 07/08/19 13:35 Negative (Negative) 07/08/19 13:35 Ur Culture Indicated? No 07/08/19 13:35 Negative mg/dL (Negative) 07/08/19 13:35 Digoxin 0.95 ng/mL (0.90-2.00) 07/07/19 16:20
--- NOTE | 2019-07-08 15:56 | CMPROGNOTE_ITS ---
- If Service Date Differs Date of service: 07/08/19 Time of Service: 15:56 Care Management Progress Note S/O:Kennedy was sitting up in a chair during CM visit. He was smiling and pleasant and readily engaged in conversation. Kennedy was expressing a desire to go home today but understood the need to remain another day. He is hopeful about attending pulmonary rehab and improving the quality of his life. A: Kennedy is a 64 year old gentleman admitted to [facility] on 07/06/19 with pneumonia. P:Neil is being treated for pneumonia. He will likely be discharged home with no new services and, hopefully, be able to attend Pulmonary Rehab. CM will continue to support patient, family and discharge planning needs identified.
[2019-07-08] MEDS: Cefpodoxime 200 MG TAB PO (17:59)
[2019-07-08] MEDS: diphenhydrAMINE 25 MG CAP 50 MG PO (22:45)
[2019-07-09] VITALS (9 sets, daily range): BP systolic 119–134; BP diastolic 71–86; PULSE 86–92; RESP 1–19; TEMP 36.3–37.1; O2SAT 94–97
[2019-07-09] MEDS: Albuterol/Ipratropium 3 ML UPD VIAL UPD ×4 (00:40→18:35)
[2019-07-09] MEDS: Cefpodoxime 200 MG TAB PO (06:44)
[2019-07-09 06:59] LABS: Abs Immature Grans 0.13 k/cumm (0.0-0.09); Absolute Basophil Count 0.03 k/cumm (0.0-0.2); Absolute Eosinophil Count 0.13 k/cumm (0.0-0.7); Absolute Neutrophil Count 9.02 k/cumm (1.2-6.7); Basophils % 0.2; HCT 42.2 % (40.0-50.0); HGB 13.3 g/dL (13.5-17.5); Lymphocytes % 18.7; Mean Corp. HGB Concentration 31.5 g/dL (32.0-36.0); Mean Corpuscular Hemoglobin 30.4 pg (27.0-33.0); Mean Corpuscular Volume 96.6 fL (80-95); Mean Platelet Volume 10.1 fL (8.0-11.0); Monocytes % 7.5; Neutrophils % 71.6; Platelet Count 235 x1000/uL (130-400); RBC 4.37 m/cumm (4.50-6.00); RBC Distribution Width 15.1 % (11.8-14.1)
[2019-07-09 07:01] LABS: Absolute Lymphocyte Count 2.36 k/cumm (1.2-3.4); Absolute Monocyte Count 0.95 k/cumm (0.11-0.7)
[2019-07-09 07:04] LABS: Anion Gap 8.6 mmol/L (3-11); BUN 12 mg/dL (7-18); CO2 30.4 mmol/L (21.0-32.0); CREATININE 1.01 mg/dL (0.70-1.30); Calcium 8.6 mg/dL (8.5-10.1); Chloride 105 mmol/L (98-107); Glucose 94 mg/dL (70-100); Magnesium 1.9 mg/dL (1.8-2.4); Potassium 3.8 mmol/L (3.5-5.1); Sodium 144 mmol/L (136-145)
[2019-07-09] MEDS: Mometasone 220 MCG 14 DOSE INHALER 1 PUFF IH ×2 (08:01→19:50)
[2019-07-09] MEDS: dilTIAZem CD 120 MG CAPCR PO ×2 (08:25→19:41)
[2019-07-09] MEDS: Metoprolol CR 50 MG TABCR 100 MG PO (08:26)
[2019-07-09] MEDS: predniSONE 20 MG TAB PO (08:26)
[2019-07-09] MEDS: Apixaban 5 MG TAB PO ×2 (08:27→19:41)
[2019-07-09] MEDS: Folic Acid 1 MG TAB PO (08:27)
[2019-07-09] MEDS: Pantoprazole 40 MG TABCR PO (08:28)
[2019-07-09] MEDS: Azithromycin 250 MG TAB 500 MG PO (08:29)
[2019-07-09] MEDS: Sertraline 50 MG TAB 150 MG PO (08:29)
[2019-07-09] MEDS: Digoxin 0.25 MG TAB 0.125 MG PO (08:30)
[2019-07-09] MEDS: Normal Saline Flush 10 ML SYR IVP ×3 (08:30→19:41)
[2019-07-09 10:42] LABS: Procalcitonin 0.8 ng/mL
--- NOTE | 2019-07-09 13:32 | DI.RAD_ITS ---
SYMPTOMS/DIAGNOSIS: REPEAT X-RAY, EVALUATE PNEUMONIA PA AND LATERAL CHEST: The examination is compared with previous examination of 07/06 and also to previous films of 09/17/18. Severe chronic fibrotic changes again noted in the lungs. Question of superimposed right sided pneumonia on more recent examination of 07/06, the findings are essentially unchanged on today's examination. No significant pleural effusion seen. Cardiac size at the upper limits of normal. CONCLUSION: No gross interval change from 07/06/19. The patient has a suspected right sided pneumonia superimposed on chronic fibrotic changes.
--- NOTE | 2019-07-09 14:10 | W.PM.PROGNOT ---
Date of Service Date of service: 07/09/19 Time of Service: 14:10 Assessment and Plan (1) Pneumonia: Current visit: Yes Status: Acute JASON pneumonia noted on chest x-ray on admission. He received cefepime in the ED and his leukocytosis resolved the following morning. He felt better the morning after his admission. At the time of admission his antibiotics were changed to azithromycin and ceftriaxone. He went on to have a mildly increased white blood cell count and did not feel at his baseline yet. His antibiotics were transitioned to oral cefpodoxime and azithromycin yesterday. This morning his white blood cell count is again higher. His procalcitonin was noted to be elevated at 0.8 (with no previous to compare it to). He had a repeat chest x-ray today which showed no improvement in the suspected right sided pneumonia superimposed on chronic fibrotic changes. He remains at his baseline 4lpm oxygen and on his usual prednisone dose. His antibiotics were stepped up to levaquin. He will have repeat CBC and procalcitonin tomorrow morning. If improved, he will be discharged home on oral levaquin. (2) COPD (chronic obstructive pulmonary disease): Current visit: No Status: Chronic Does not appear to be in acute exacerbation. Continue home inhalers. (3) Pulmonary fibrosis: Current visit: No Status: Chronic As above. Continue oxygen at 4lpm. (4) Atrial fibrillation with controlled ventricular rate: Current visit: No Status: Chronic Anticoagulated with eliquis. Continue metoprolol, cardizem and digoxin per home doses. Continue to monitor heart rate. (5) Hypokalemia: Current visit: Yes Status: Acute Replete and monitor. (6) DVT prophylaxis: Current visit: No Status: Acute Therapeutic on eliquis. (7) Discharge planning issues: Current visit: No Status: Acute He is a FULL CODE. This case was discussed with Dr. Rizzo who is in agreement. Subjective Interval history since last seen: Neil Worthington continues to report that he feels better than he did at the time of his admission, he feels about the same as yesterday. He continues to have some shortness of breath with exertion that is worse than baseline. He does not feel wheezy. His cough has improved, he is no longer producing sputum. He remains on his baseline 4 L/min of oxygen, his oxygen saturation is 97%. He denies chest pain/pressure, palpitations, he is eating and drinking and tolerating his diet, his appetite has improved, he denies nausea, abdominal pain or vomiting. He denies dysuria or hematuria. He is having normal bowel movements. He is eager for discharge home, however, his white blood cell count has increased again today. A procalcitonin was drawn and noted to be 0.8. He had a repeat chest x-ray which showed no improvement in suspected right sided pneumonia superimposed on chronic fibrotic changes. His antibiotics have been changed to levaquin. Exam Narrative Exam Narrative: General: 64-year-old man, sitting up in bed, in no acute distress. Pleasant and cooperative. Alert and oriented, answers questions appropriately. HEENT: normocephalic, atraumatic. Pupils equal and round, extraocular movements intact, mucous membranes moist. Neck: Supple, no JVD. Respiratory: Respirations appear even and unlabored, does not appear to be using accessory muscles. Lung sounds with diminished bases bilaterally, rales noted to right upper lobe, no wheezing. Cardiovascular: Heart sounds irregularly irregular, no murmur appreciated. Non-tachycardic. GI: Normoactive bowel sounds x4 quadrants, abdomen soft, nontender on palpation, nondistended. Extremities: Well-perfused, no clubbing, cyanosis or edema. Objective Objective Clinical Data: Abnormal lab results 07/08/19 07/09/19 Range/Units 13:35 06:12 WBC 12.60 H (4.4-10.8) k/cumm RBC 4.37 L (4.50-6.00) m/cumm Hgb 13.3 L (13.5-17.5) g/dL MCV 96.6 H (80-95) fL MCHC 31.5 L (32.0-36.0) g/dL RDW 15.1 H (11.8-14.1) % Absolute Neutrophils 9.02 H (1.2-6.7) k/cumm Absolute Monocytes 0.95 H (0.11-0.7) k/cumm Ur Specific [place] >= 1.030 H (1.005-1.025) Urine Protein 30 H (Negative) mg/dL Urine Ketones 15 H (Negative) mg/dL Urine Blood Trace-lysed H (Negative) Vital Signs Temperature 36.3 C L 07/09/19 07:15 Temperature Source Tympanic 07/09/19 07:15 Pulse 89 07/09/19 11:56 Pulse Rhythm Regular 07/09/19 08:45 Pulse 68 07/06/19 19:00 Respiratory Rate 18 07/09/19 11:56 Respiratory Effort Non-Labored 07/09/19 08:45 Respiratory Depth Normal 07/09/19 08:45 Respiratory Pattern Normal 07/09/19 08:45 Blood Pressure 134/86 07/09/19 07:15 Blood Pressure Mean 84 07/06/19 18:46 Blood Pressure Position Sitting 07/06/19 15:31 Pulse Oximetry 97 07/09/19 11:56 Oxygen Delivery Method Nasal Cannula 07/09/19 11:56 Oxygen Flow Rate 4 07/09/19 11:56 Pain Level 0 07/09/19 07:15 Comment 07/06/19 19:50 Intake & Output 07/08/19 07/09/19 07/09/19 23:59 11:59 23:59 Intake Total 240 / 495 360 / 360 Output Total 225 / 225 Balance 240 / 495 135 / 135 Intake: Oral 240 / 485 360 / 360 Output: Urine 225 / 225 Other: Urine Color Yellow Yellow Urine Appearance Clear Clear Urine Odor Normal None Comment Per pt report, urine is pale yellow and normal. Pt denies discomfort with voiding at this time. Voiding Methods Toilet Toilet Laboratory Results WBC 12.60 k/cumm (4.4-10.8) H 07/09/19 06:12 RBC 4.37 m/cumm (4.50-6.00) L 07/09/19 06:12 Hgb 13.3 g/dL (13.5-17.5) L 07/09/19 06:12 Hct 42.2 % (40.0-50.0) 07/09/19 06:12 MCV 96.6 fL (80-95) H 07/09/19 06:12 MCH 30.4 pg (27.0-33.0) 07/09/19 06:12 MCHC 31.5 g/dL (32.0-36.0) L 07/09/19 06:12 RDW 15.1 % (11.8-14.1) H 07/09/19 06:12 Plt Count 235 x1000/uL (130-400) 07/09/19 06:12 MPV 10.1 fL (8.0-11.0) 07/09/19 06:12 Immature Gran % 1.0 07/09/19 06:12 71.6 07/09/19 06:12 18.7 07/09/19 06:12 7.5 07/09/19 06:12 1.0 07/09/19 06:12 0.2 07/09/19 06:12 Absolute Neutrophils 9.02 k/cumm (1.2-6.7) H 07/09/19 06:12 Absolute Lymphocytes 2.36 k/cumm (1.2-3.4) 07/09/19 06:12 Absolute Monocytes 0.95 k/cumm (0.11-0.7) H 07/09/19 06:12 Absolute Eosinophils 0.13 k/cumm (0.0-0.7) 07/09/19 06:12 Absolute Basophils 0.03 k/cumm (0.0-0.2) 07/09/19 06:12 Sodium 144 mmol/L (136-145) 07/09/19 06:12 Potassium 3.8 mmol/L (3.5-5.1) 07/09/19 06:12 Chloride 105 mmol/L (98-107) 07/09/19 06:12 Carbon Dioxide 30.4 mmol/L (21.0-32.0) 07/09/19 06:12 8.6 mmol/L (3-11) 07/09/19 06:12 BUN 12 mg/dL (7-18) 07/09/19 06:12 1.01 mg/dL (0.70-1.30) 07/09/19 06:12 >= 60.00 (mL/min/1.73m2) 07/09/19 06:12 Glucose 94 mg/dL (70-100) 07/09/19 06:12 Calcium 8.6 mg/dL (8.5-10.1) 07/09/19 06:12 Magnesium 1.9 mg/dL (1.8-2.4) 07/09/19 06:12 1.3 mg/dL (0.2-1.0) H 07/06/19 16:05 AST 12 U/L (15-37) L 07/06/19 16:05 ALT 24 U/L (12-78) 07/06/19 16:05 74 U/L (46-116) 07/06/19 16:05 < 0.05 ng/mL (0.00-0.06) 07/06/19 16:05 NT-Pro-B Natriuret Pep 1321 pg/mL (-299) H 07/06/19 16:05 7.3 g/dL (6.4-8.2) 07/06/19 16:05 3.6 g/dL (3.4-5.0) 07/06/19 16:05 0.8 ng/mL 07/09/19 06:12 Yellow (Yellow) 07/08/19 13:35 Turbid (Clear) 07/08/19 13:35 6.0 (5-8) 07/08/19 13:35 Ur Specific [place] >= 1.030 (1.005-1.025) H 07/08/19 13:35 30 mg/dL (Negative) H 07/08/19 13:35 15 mg/dL (Negative) H 07/08/19 13:35 Trace-lysed (Negative) H 07/08/19 13:35 Negative (Negative) 07/08/19 13:35 Negative (Negative) 07/08/19 13:35 0.2 EU/dL (Up TO 0.2) 07/08/19 13:35 Ur Leukocyte Esterase Negative (Negative) 07/08/19 13:35 Negative (0-2) 07/08/19 13:35 Negative HPF (0-5) 07/08/19 13:35 Ur Epithelial Cells Negative HPF (Negative) 07/08/19 13:35 Many amorphous HPF (Negative) 07/08/19 13:35 HPF (Negative) 07/08/19 13:35 Negative LPF (Negative) 07/08/19 13:35 Negative (Negative) 07/08/19 13:35 Ur Culture Indicated? No 07/08/19 13:35 Negative mg/dL (Negative) 07/08/19 13:35 Digoxin 0.95 ng/mL (0.90-2.00) 07/07/19 16:20
--- NOTE | 2019-07-09 14:47 | CMPROGNOTE_ITS ---
- If Service Date Differs Date of service: 07/09/19 Time of Service: 14:47 Care Management Progress Note S/O:Kennedy was sitting up in a chair during CM visit. He was smiling and pleasant and readily engaged in conversation. Kennedy's WBC continues to climb so he will not be able to go home. A repeat chest XRAY shows no improvement, necessitating a change in antibiotic regimen. A: Kennedy is a 64 year old gentleman admitted to [facility] on 07/06/19 with pneumonia. P:Neil is being treated for pneumonia. He will likely be discharged home with no new services and, hopefully, be able to attend Pulmonary Rehab. CM will continue to support patient, family and discharge planning needs identified.
--- NOTE | 2019-07-09 15:00 | CHAPLAIN ---
Neil was disappointed that he was not discharged today. He has been using the portal on his iPad to review his records here and at [facility]. He said he's found the portal system to be very helpful and he likes being able to have immediate access to his records. He anticipates that his will be in to visit later. Neil seems to be comfortable here, although he is looking forward to being discharged.
[2019-07-09] MEDS: levoFLOXacin 750 MG/150 ML BAG 100 MG IVPB (15:12)
[2019-07-09] MEDS: diphenhydrAMINE 25 MG CAP 50 MG PO (21:42)
[2019-07-10] VITALS (10 sets, daily range): BP systolic 111–138; BP diastolic 64–77; PULSE 66–100; RESP 1–21; TEMP 36.5–37.1; O2SAT 80–98
[2019-07-10] MEDS: Albuterol/Ipratropium 3 ML UPD VIAL UPD ×4 (00:11→18:15)
[2019-07-10] MEDS: Metoprolol CR 50 MG TABCR 100 MG PO (07:40)
[2019-07-10] MEDS: Digoxin 0.25 MG TAB 0.125 MG PO (07:40)
[2019-07-10] MEDS: Sertraline 50 MG TAB 150 MG PO (07:42)
[2019-07-10] MEDS: dilTIAZem CD 120 MG CAPCR PO ×2 (07:43→19:56)
[2019-07-10] MEDS: Pantoprazole 40 MG TABCR PO (07:43)
[2019-07-10] MEDS: predniSONE 20 MG TAB PO (07:44)
[2019-07-10] MEDS: Folic Acid 1 MG TAB PO (07:44)
[2019-07-10] MEDS: Apixaban 5 MG TAB PO ×2 (07:45→19:56)
[2019-07-10 07:53] LABS: Absolute Basophil Count 0.02 k/cumm (0.0-0.2); Absolute Eosinophil Count 0.07 k/cumm (0.0-0.7); Absolute Lymphocyte Count 2.58 k/cumm (1.2-3.4); Absolute Monocyte Count 0.94 k/cumm (0.11-0.7); Absolute Neutrophil Count 8.52 k/cumm (1.2-6.7); Basophils % 0.2; Eosinophils % 0.6; HCT 40.7 % (40.0-50.0); HGB 13.3 g/dL (13.5-17.5); Immature Grans % 1.6; Lymphocytes % 20.9; Mean Corp. HGB Concentration 32.7 g/dL (32.0-36.0); Mean Corpuscular Hemoglobin 31.1 pg (27.0-33.0); Mean Corpuscular Volume 95.1 fL (80-95); Monocytes % 7.6; Neutrophils % 69.1; Platelet Count 236 x1000/uL (130-400); RBC 4.28 m/cumm (4.50-6.00); RBC Distribution Width 14.9 % (11.8-14.1); White Blood Cell Count 12.33 k/cumm (4.4-10.8)
[2019-07-10 08:04] LABS: Anion Gap 9.1 mmol/L (3-11); BUN 13 mg/dL (7-18); CO2 28.9 mmol/L (21.0-32.0); CREATININE 0.95 mg/dL (0.70-1.30); Calcium 8.3 mg/dL (8.5-10.1); Chloride 104 mmol/L (98-107); Glucose 96 mg/dL (70-100); Magnesium 1.8 mg/dL (1.8-2.4); Potassium 3.1 mmol/L (3.5-5.1); Sodium 142 mmol/L (136-145)
[2019-07-10] MEDS: Mometasone 220 MCG 14 DOSE INHALER 1 PUFF IH ×2 (08:13→19:56)
[2019-07-10 08:25] LABS: Procalcitonin 0.7 ng/mL
[2019-07-10] MEDS: Potassium Chloride 20 MEQ TABCR 40 MEQ PO (11:29)
--- NOTE | 2019-07-10 14:01 | CMDISCH_ITS ---
LACE Index Scoring Tool - Questions: Length of Stay (in days): 4 - 6 Acuity (Admit via E.D.?): Yes Comorbidities: Chronic Pulmonary Disease E.D. Visits: 2 - Answers: Total Score: 11 Risk of Readmission: High Risk Care Management Discharge Reason for Hospitalization: Pneumonia Discharge Plan: Neil will discharge home when ready per MD. CM agreed to support Neil and RT in exploring payer source for Pulmonary Rehab post discharge as needed. Neil will follow up with his Mutual Fund Analyst; Dr. Kendra Faulkner at [facility] after discharge as well. He will discuss possiblity of aquiring portable oxygen. He will transport via private vehicle with his , Agata. Patient/Family Education Needs: Review of discharge instructions, insurance considerations, self care needs upon discharge- Ask Me Three.
[2019-07-10] MEDS: Normal Saline Flush 10 ML SYR IVP ×3 (15:21→19:56)
--- NOTE | 2019-07-10 15:34 | W.PM.PROGNOT ---
Date of Service Date of service: 07/10/19 Time of Service: 15:35 Assessment and Plan (1) Acute and chronic respiratory failure with hypoxia: Current visit: Yes Status: Acute Multifactorial - due to acute exacerbation of COPD, ?PNA, pulmonary fibrosis. Tx as below. (2) Acute exacerbation of chronic obstructive pulmonary disease (COPD): Current visit: No Status: Acute Change antibiotics to cefepime; add IV steroids. (3) Pneumonia: Current visit: Yes Status: Suspected Question of RUL infiltrate on CXR - in my opinion, appearance is more c/w known severe fibrosis. However, procalcitonin is elevated and not budging on levofloxacin and oxygen requirement is worse than baseline. Ultimately, the patient's best symptom improvement/WBC improvement happened on cefepime - this is being resumed. D/c levofloxacin. Continue to trend procalcitonin. (4) Pulmonary fibrosis: Current visit: No Status: Chronic Steroid dependent. Increase steroids - solumedrol 60 mg IV BID. (5) Atrial fibrillation with controlled ventricular rate: Current visit: No Status: Chronic Continue eliquis. Continue metoprolol, cardizem and digoxin. (6) Hypokalemia: Current visit: Yes Status: Acute Replete and continue to monitor. (7) Discharge planning issues: Current visit: No Status: Acute He is a FULL CODE. Patient continues to require inpatient hospitalization (8) DVT prophylaxis: Current visit: No Status: Acute On therapeutic eliquis. Subjective Interval history since last seen: Desaturated down to 60's on 4L while walking, 84% on 8L. States he got dizzy and wobbly. Denies dizziness at rest, chest pain, states breathing has not gotten better in the last 3 days, denies nausea, vomiting. He is disappointed he can't go home today - he was planning on having a constitution party for his tomorrow. Exam Narrative Exam Narrative: General: very pleasant, mildly anxious middle-aged male, sitting comfortably in a chair, does not look tachypneic HEENT: EOMI, MMM Heart: RRR, no m/r/g Lungs: CTAB - no wheezing/rales auscultated GI: abdomen is soft, nontender, nondistended Extremities: trace edema at the ankles B, no c/c. Objective Objective Clinical Data: Abnormal lab results 07/10/19 07/10/19 Range/Units 07:28 07:28 WBC 12.33 H (4.4-10.8) k/cumm RBC 4.28 L (4.50-6.00) m/cumm Hgb 13.3 L (13.5-17.5) g/dL MCV 95.1 H (80-95) fL RDW 14.9 H (11.8-14.1) % Absolute Neutrophils 8.52 H (1.2-6.7) k/cumm Absolute Monocytes 0.94 H (0.11-0.7) k/cumm Potassium 3.1 L (3.5-5.1) mmol/L Calcium 8.3 L (8.5-10.1) mg/dL Vital Signs Temperature 36.6 C 07/10/19 07:35 Temperature Source Tympanic 07/10/19 07:35 Pulse 72 07/10/19 07:40 Pulse Rhythm Regular 07/10/19 11:55 Pulse 68 07/06/19 19:00 Respiratory Rate 18 07/10/19 07:35 Respiratory Effort Non-Labored 07/10/19 11:55 Respiratory Depth Normal 07/10/19 11:55 Respiratory Pattern Normal 07/10/19 11:55 Blood Pressure 111/76 07/10/19 07:35 Blood Pressure Mean 84 07/06/19 18:46 Blood Pressure Position Sitting 07/06/19 15:31 Pulse Oximetry 93 L 07/10/19 07:35 Oxygen Delivery Method Nasal Cannula 07/10/19 07:35 Oxygen Flow Rate 4 07/10/19 07:35 Pain Level 0 07/10/19 07:35 Comment 07/06/19 19:50 Intake & Output 07/09/19 07/10/19 07/10/19 23:59 11:59 23:59 Intake Total 830 / 1190 970 / 1210 240 / 1210 Balance 830 / 965 970 / 1210 240 / 1210 Weight 113.3 kg Intake: IV 170 / 170 Oral 660 / 1020 970 / 1210 240 / 1210 Other: Urine Appearance Clear Comment Voiding independantly Voiding independantly throughout the night Voiding Methods Toilet Toilet Laboratory Results WBC 12.33 k/cumm (4.4-10.8) H 07/10/19 07:28 RBC 4.28 m/cumm (4.50-6.00) L 07/10/19 07:28 Hgb 13.3 g/dL (13.5-17.5) L 07/10/19 07:28 Hct 40.7 % (40.0-50.0) 07/10/19 07:28 MCV 95.1 fL (80-95) H 07/10/19 07:28 MCH 31.1 pg (27.0-33.0) 07/10/19 07:28 MCHC 32.7 g/dL (32.0-36.0) 07/10/19 07:28 RDW 14.9 % (11.8-14.1) H 07/10/19 07:28 Plt Count 236 x1000/uL (130-400) 07/10/19 07:28 MPV 10.0 fL (8.0-11.0) 07/10/19 07:28 Immature Gran % 1.6 07/10/19 07:28 69.1 07/10/19 07:28 20.9 07/10/19 07:28 7.6 07/10/19 07:28 0.6 07/10/19 07:28 0.2 07/10/19 07:28 Absolute Neutrophils 8.52 k/cumm (1.2-6.7) H 07/10/19 07:28 Absolute Lymphocytes 2.58 k/cumm (1.2-3.4) 07/10/19 07:28 Absolute Monocytes 0.94 k/cumm (0.11-0.7) H 07/10/19 07:28 Absolute Eosinophils 0.07 k/cumm (0.0-0.7) 07/10/19 07:28 Absolute Basophils 0.02 k/cumm (0.0-0.2) 07/10/19 07:28 Sodium 142 mmol/L (136-145) 07/10/19 07:28 Potassium 3.1 mmol/L (3.5-5.1) L 07/10/19 07:28 Chloride 104 mmol/L (98-107) 07/10/19 07:28 Carbon Dioxide 28.9 mmol/L (21.0-32.0) 07/10/19 07:28 9.1 mmol/L (3-11) 07/10/19 07:28 BUN 13 mg/dL (7-18) 07/10/19 07:28 0.95 mg/dL (0.70-1.30) 07/10/19 07:28 >= 60.00 (mL/min/1.73m2) 07/10/19 07:28 Glucose 96 mg/dL (70-100) 07/10/19 07:28 Calcium 8.3 mg/dL (8.5-10.1) L 07/10/19 07:28 Magnesium 1.8 mg/dL (1.8-2.4) 07/10/19 07:28 1.3 mg/dL (0.2-1.0) H 07/06/19 16:05 AST 12 U/L (15-37) L 07/06/19 16:05 ALT 24 U/L (12-78) 07/06/19 16:05 74 U/L (46-116) 07/06/19 16:05 < 0.05 ng/mL (0.00-0.06) 07/06/19 16:05 NT-Pro-B Natriuret Pep 1321 pg/mL (-299) H 07/06/19 16:05 7.3 g/dL (6.4-8.2) 07/06/19 16:05 3.6 g/dL (3.4-5.0) 07/06/19 16:05 0.7 ng/mL 07/10/19 07:28 Yellow (Yellow) 07/08/19 13:35 Turbid (Clear) 07/08/19 13:35 6.0 (5-8) 07/08/19 13:35 Ur Specific [place] >= 1.030 (1.005-1.025) H 07/08/19 13:35 30 mg/dL (Negative) H 07/08/19 13:35 15 mg/dL (Negative) H 07/08/19 13:35 Trace-lysed (Negative) H 07/08/19 13:35 Negative (Negative) 07/08/19 13:35 Negative (Negative) 07/08/19 13:35 0.2 EU/dL (Up TO 0.2) 07/08/19 13:35 Ur Leukocyte Esterase Negative (Negative) 07/08/19 13:35 Negative (0-2) 07/08/19 13:35 Negative HPF (0-5) 07/08/19 13:35 Ur Epithelial Cells Negative HPF (Negative) 07/08/19 13:35 Many amorphous HPF (Negative) 07/08/19 13:35 HPF (Negative) 07/08/19 13:35 Negative LPF (Negative) 07/08/19 13:35 Negative (Negative) 07/08/19 13:35 Ur Culture Indicated? No 07/08/19 13:35 Negative mg/dL (Negative) 07/08/19 13:35 Digoxin 0.95 ng/mL (0.90-2.00) 07/07/19 16:20
[2019-07-10] MEDS: Sulfameth/Trimeth DS TAB 1 TAB PO (16:49)
[2019-07-10] MEDS: CEFEPIME 2 GM in Normal Saline 100 ML IVPB (17:58)
[2019-07-10] MEDS: methylPREDNISolone SUCC 125 MG VIAL 60 MG IVP (18:15)
[2019-07-10] MEDS: diphenhydrAMINE 25 MG CAP 50 MG PO (22:21)
[2019-07-11] VITALS (9 sets, daily range): BP systolic 126–148; BP diastolic 74–90; PULSE 66–100; RESP 1–19; TEMP 36.5–36.8; O2SAT 80–97
[2019-07-11] MEDS: Albuterol/Ipratropium 3 ML UPD VIAL UPD ×4 (00:23→17:56)
[2019-07-11] MEDS: CEFEPIME 2 GM in Normal Saline 100 ML IVPB ×3 (00:23→16:25)
[2019-07-11] MEDS: Normal Saline Flush 10 ML SYR IVP ×6 (00:24→21:05)
[2019-07-11] MEDS: methylPREDNISolone SUCC 125 MG VIAL 60 MG IVP ×2 (05:37→17:56)
[2019-07-11 07:54] LABS: Abs Immature Grans 0.11 k/cumm (0.0-0.09); Absolute Lymphocyte Count 0.69 k/cumm (1.2-3.4); Basophils % 0.1; HCT 44.2 % (40.0-50.0); HGB 14.4 g/dL (13.5-17.5); Immature Grans % 0.6; Lymphocytes % 3.7; Mean Corp. HGB Concentration 32.6 g/dL (32.0-36.0); Mean Corpuscular Hemoglobin 30.6 pg (27.0-33.0); Mean Platelet Volume 10.3 fL (8.0-11.0); Monocytes % 2.3; Neutrophils % 93.3; Platelet Count 277 x1000/uL (130-400); RBC Distribution Width 14.9 % (11.8-14.1); White Blood Cell Count 18.57 k/cumm (4.4-10.8)
[2019-07-11] MEDS: Mometasone 220 MCG 14 DOSE INHALER 1 PUFF IH ×2 (07:54→21:05)
[2019-07-11 07:55] LABS: Absolute Basophil Count 0.02 k/cumm (0.0-0.2); Absolute Monocyte Count 0.43 k/cumm (0.11-0.7); Absolute Neutrophil Count 17.33 k/cumm (1.2-6.7)
[2019-07-11 08:13] LABS: Anion Gap 9.2 mmol/L (3-11); BUN 15 mg/dL (7-18); CO2 28.8 mmol/L (21.0-32.0); CREATININE 0.97 mg/dL (0.70-1.30); Calcium 9.2 mg/dL (8.5-10.1); Chloride 103 mmol/L (98-107); Glucose 158 mg/dL (70-100); Sodium 141 mmol/L (136-145)
[2019-07-11] MEDS: Sertraline 50 MG TAB 150 MG PO (08:34)
[2019-07-11] MEDS: Pantoprazole 40 MG TABCR PO (08:34)
[2019-07-11] MEDS: Digoxin 0.25 MG TAB 0.125 MG PO (08:35)
[2019-07-11] MEDS: Metoprolol CR 50 MG TABCR 100 MG PO (08:35)
[2019-07-11] MEDS: dilTIAZem CD 120 MG CAPCR PO ×2 (08:35→21:05)
[2019-07-11] MEDS: Folic Acid 1 MG TAB PO (08:36)
[2019-07-11] MEDS: Apixaban 5 MG TAB PO ×2 (08:36→21:05)
[2019-07-11] MEDS: predniSONE 20 MG TAB PO (08:36)
[2019-07-11 08:49] LABS: Procalcitonin 0.6 ng/mL
[2019-07-11] MEDS: DOXYCYCLINE 100 MG in Normal Saline 100 ML IVPB ×2 (10:57→23:05)
--- NOTE | 2019-07-11 15:46 | PGE_ITS ---
Date of Service Date of service: 07/11/19 Time of Service: 15:46 Assessment and Plan (1) Acute and chronic respiratory failure with hypoxia: Current visit: Yes Status: Acute Multifactorial - due to acute exacerbation of COPD, ?PNA, pulmonary fibrosis. Due to failure to improve, obtaining CT of the chest. Concern for PJP. Will discuss results with patient's drug safety physician at [facility]. Tx as below. (2) Acute exacerbation of chronic obstructive pulmonary disease (COPD): Current visit: No Status: Acute Continue cefepime; add vancomycin and doxycycline to broaden coverage. Obtain CT chest. On bactrim for PJP ppx - could this be actual PJP? Will discuss with pulmonology. (3) Pneumonia: Current visit: Yes Status: Suspected As above. Procalcitonin is very slow to improve. (4) Pulmonary fibrosis: Current visit: No Status: Chronic Steroid dependent. Continue increased dose of steroids (5) Atrial fibrillation with controlled ventricular rate: Current visit: No Status: Chronic Continue eliquis. Continue metoprolol, cardizem and digoxin. (6) Hypokalemia: Current visit: Yes Status: Acute recheck in am (7) Discharge planning issues: Current visit: No Status: Acute He is a FULL CODE. Patient continues to require inpatient hospitalization. May need transfer to a tertiary care facility. (8) DVT prophylaxis: Current visit: No Status: Acute On therapeutic eliquis. Subjective Interval history since last seen: Mr Worthington states that he does not feel any better today. He denies dizziness, chest pain. Did get dyspneic on exertion today, but felt he had more stamina than yesterday. His O2 sat on 8L was 82% while ambulating; he is on 4L at rest. He denies nausea/vomiting. We spoke about getting a CT of his chest so that I can rule out PJP and ask his pulmonlogist for an opinion - he agrees to the CT. Exam Narrative Exam Narrative: General: very pleasant, mildly anxious middle-aged male, sitting in bed, looks very mildly tachypneic HEENT: EOMI, MMM Heart: RRR, no m/r/g Lungs: Quiet crackles at B bases heard, but otherwise good air entry and no wheezing GI: abdomen is soft, nontender, nondistended Extremities: trace edema at the ankles B, no c/c. Objective Objective Clinical Data: Abnormal lab results 07/11/19 07/11/19 Range/Units 07:10 07:10 WBC 18.57 H D (4.4-10.8) k/cumm RDW 14.9 H (11.8-14.1) % Absolute Neutrophils 17.33 H (1.2-6.7) k/cumm Absolute Lymphocytes 0.69 L (1.2-3.4) k/cumm Glucose 158 H (70-100) mg/dL Vital Signs Temperature 36.7 C 07/11/19 08:26 Temperature Source Tympanic 07/11/19 08:26 Pulse 93 H 07/11/19 08:35 Pulse Rhythm Irregular 07/11/19 08:41 Pulse 68 07/06/19 19:00 Respiratory Rate 19 07/11/19 08:26 Respiratory Effort Non-Labored 07/11/19 08:41 Respiratory Depth Normal 07/11/19 08:41 Respiratory Pattern Normal 07/11/19 08:41 Blood Pressure 148/82 H 07/11/19 08:26 Blood Pressure Mean 84 07/06/19 18:46 Blood Pressure Position Sitting 07/06/19 15:31 Pulse Oximetry 93 L 07/11/19 08:26 Oxygen Delivery Method Nasal Cannula 07/11/19 08:26 Oxygen Flow Rate 4 07/11/19 08:26 Pain Level 0 07/11/19 08:26 Comment 07/06/19 19:50 Intake & Output 07/10/19 07/11/19 07/11/19 23:59 11:59 23:59 Intake Total 590 / 1560 390 / 490 100 / 490 Output Total 675 / 675 Balance 590 / 1560 -285 / -185 100 / -185 Weight 112.3 kg Intake: IV 110 / 110 210 / 310 100 / 310 Oral 480 / 1450 180 / 180 Output: Urine 675 / 675 Other: Urine Color Straw Urine Appearance Clear Urine Odor Strong Voiding Methods Toilet Toilet Laboratory Results WBC 18.57 k/cumm (4.4-10.8) H D 07/11/19 07:10 RBC 4.70 m/cumm (4.50-6.00) 07/11/19 07:10 Hgb 14.4 g/dL (13.5-17.5) 07/11/19 07:10 Hct 44.2 % (40.0-50.0) 07/11/19 07:10 MCV 94.0 fL (80-95) 07/11/19 07:10 MCH 30.6 pg (27.0-33.0) 07/11/19 07:10 MCHC 32.6 g/dL (32.0-36.0) 07/11/19 07:10 RDW 14.9 % (11.8-14.1) H 07/11/19 07:10 Plt Count 277 x1000/uL (130-400) 07/11/19 07:10 MPV 10.3 fL (8.0-11.0) 07/11/19 07:10 Immature Gran % 0.6 07/11/19 07:10 93.3 07/11/19 07:10 3.7 07/11/19 07:10 2.3 07/11/19 07:10 0.0 07/11/19 07:10 0.1 07/11/19 07:10 Absolute Neutrophils 17.33 k/cumm (1.2-6.7) H 07/11/19 07:10 Absolute Lymphocytes 0.69 k/cumm (1.2-3.4) L 07/11/19 07:10 Absolute Monocytes 0.43 k/cumm (0.11-0.7) 07/11/19 07:10 Absolute Eosinophils 0.00 k/cumm (0.0-0.7) 07/11/19 07:10 Absolute Basophils 0.02 k/cumm (0.0-0.2) 07/11/19 07:10 Sodium 141 mmol/L (136-145) 07/11/19 07:10 Potassium 4.0 mmol/L (3.5-5.1) D 07/11/19 07:10 Chloride 103 mmol/L (98-107) 07/11/19 07:10 Carbon Dioxide 28.8 mmol/L (21.0-32.0) 07/11/19 07:10 9.2 mmol/L (3-11) 07/11/19 07:10 BUN 15 mg/dL (7-18) 07/11/19 07:10 0.97 mg/dL (0.70-1.30) 07/11/19 07:10 >= 60.00 (mL/min/1.73m2) 07/11/19 07:10 Glucose 158 mg/dL (70-100) H 07/11/19 07:10 Calcium 9.2 mg/dL (8.5-10.1) 07/11/19 07:10 Magnesium 2.0 mg/dL (1.8-2.4) 07/11/19 07:10 1.3 mg/dL (0.2-1.0) H 07/06/19 16:05 AST 12 U/L (15-37) L 07/06/19 16:05 ALT 24 U/L (12-78) 07/06/19 16:05 74 U/L (46-116) 07/06/19 16:05 < 0.05 ng/mL (0.00-0.06) 07/06/19 16:05 NT-Pro-B Natriuret Pep 1321 pg/mL (-299) H 07/06/19 16:05 7.3 g/dL (6.4-8.2) 07/06/19 16:05 3.6 g/dL (3.4-5.0) 07/06/19 16:05 0.6 ng/mL 07/11/19 07:10 Yellow (Yellow) 07/08/19 13:35 Turbid (Clear) 07/08/19 13:35 6.0 (5-8) 07/08/19 13:35 Ur Specific [place] >= 1.030 (1.005-1.025) H 07/08/19 13:35 30 mg/dL (Negative) H 07/08/19 13:35 15 mg/dL (Negative) H 07/08/19 13:35 Trace-lysed (Negative) H 07/08/19 13:35 Negative (Negative) 07/08/19 13:35 Negative (Negative) 07/08/19 13:35 0.2 EU/dL (Up TO 0.2) 07/08/19 13:35 Ur Leukocyte Esterase Negative (Negative) 07/08/19 13:35 Negative (0-2) 07/08/19 13:35 Negative HPF (0-5) 07/08/19 13:35 Ur Epithelial Cells Negative HPF (Negative) 07/08/19 13:35 Many amorphous HPF (Negative) 07/08/19 13:35 HPF (Negative) 07/08/19 13:35 Negative LPF (Negative) 07/08/19 13:35 Negative (Negative) 07/08/19 13:35 Ur Culture Indicated? No 07/08/19 13:35 Negative mg/dL (Negative) 07/08/19 13:35 Digoxin 0.95 ng/mL (0.90-2.00) 07/07/19 16:20
--- NOTE | 2019-07-11 17:31 | DI.CT_ITS ---
SYMPTOM/DIAGNOSIS: PNEUMONIA, FAILURE TO RESPOND, ? PJP CT CHEST: 07/11 CT examination of the chest was performed without intravenous contrast material. Examination was compared with recent chest film of 07/09/19 and with previous chest CT of 05/04/19. Images obtained through the upper abdomen show unremarkable appearance of visualized portins of liver, spleen, pancreas, kidneys and adrenals. Gallbladder has been surgically removed. No mediastinal or hilar adenopathy. Tracheobronchial tree appears intact. There are severe changes of emphysema, central lobular and paraseptal, with multiple apical bullae. There are chronic interstitial and ground glass opacities. There are apparent superimposed areas of ground glass and patchy consolidation in the right lung in comparison with previous CT of 05/2019. These findings may have been present on chest film of 07/09. No significant pleural effusion seen. Cardiac size is mildly enlarged. No pericardial effusion. CONCLUSION: Findings consistent with acute right sided multifocal pneumonia superimposed on diffuse emphysematous changes.
--- NOTE | 2019-07-11 17:54 | DI.VRAD_ITS ---
EXAM: CT Chest Without Contrast EXAM DATE/TIME: 07/11/2019 3:46 PM CLINICAL HISTORY: 64 years old, male; Condition or disease; Other: Worsening pneumonia TECHNIQUE: Imaging protocol: Axial computed tomography images of the chest without intravenous contrast. Coronal and sagittal reformatted images were created and reviewed. COMPARISON: CT scan of the chest, 05/04/2019. FINDINGS: Lungs: Diffuse bilateral paraseptal and centrilobular pulmonary emphysema, most severe in the upper lung zones. Multifocal patchy and groundglass opacities scattered throughout both lungs, worse on the right. There are multiple new and worsened parenchymal opacities present within the right lung compared to the prior study. The findings are consistent with nonspecific pneumonitis. The areas of involvement within the left lung are not significantly changed. No nolberto pulmonary consolidation. Pleural space: Unremarkable. No pneumothorax. No pleural effusion. Heart: Unremarkable. No cardiomegaly. No pericardial effusion. Aorta: Unremarkable. No aortic aneurysm. Lymph nodes: Unremarkable. No enlarged lymph nodes. Bones/joints: Unremarkable. No acute fracture. Soft tissues: Unremarkable. IMPRESSION: 1. Diffuse pulmonary emphysema. 2. Interval worsening of right lung multifocal pneumonitis. 3. Radiographically stable left lung. Dictated and Authenticated by: Judson Hernandez MD. Ordering:MARTINA Guallpa MD
--- NOTE | 2019-07-11 19:44 | PDOC.CMPRO ---
Care Management Progress Note S/O: Neil appeared quite happy surrounded by family having a pizza alliance party in his room when CM attempted to meet with him. Per MD, Neil is not improving as anticipated, MD to consult with [facility] Post Closing Specialist. No change to overall plan; CM continues to follow. A: 64 year old male admitted to [facility] 07/06/19 with Pneumonia P: Neil will discharge home when ready per MD. CM agreed to support Neil and RT in exploring payer source for Pulmonary Rehab post discharge as needed-MD to complete referral form. Neil will follow up with his Post Closing Specialist; Dr. Kendra Faulkner at [facility] after discharge as well-CM to fax DC summary. He will discuss possibility of acquiring portable oxygen during his Post Closing Specialist follow up. Neil will transport via private vehicle with his , Agata.
[2019-07-11] MEDS: diphenhydrAMINE 25 MG CAP 50 MG PO (23:00)
[2019-07-12] VITALS (10 sets, daily range): BP systolic 109–134; BP diastolic 68–86; PULSE 67–93; RESP 1–24; TEMP 32–36.6; O2SAT 90–98
[2019-07-12] MEDS: Albuterol/Ipratropium 3 ML UPD VIAL UPD ×5 (00:51→23:38)
[2019-07-12] MEDS: CEFEPIME 2 GM in Normal Saline 100 ML IVPB ×4 (01:12→23:37)
[2019-07-12] MEDS: methylPREDNISolone SUCC 125 MG VIAL 60 MG IVP ×3 (06:09→17:00)
[2019-07-12] MEDS: Normal Saline Flush 10 ML SYR IVP ×3 (06:15→17:57)
[2019-07-12 07:36] LABS: Absolute Lymphocyte Count 0.92 k/cumm (1.2-3.4); Absolute Monocyte Count 1.21 k/cumm (0.11-0.7); Basophils % 0.1; HCT 41.7 % (40.0-50.0); HGB 13.4 g/dL (13.5-17.5); Immature Grans % 0.8; Lymphocytes % 3.5; Mean Corp. HGB Concentration 32.1 g/dL (32.0-36.0); Mean Corpuscular Hemoglobin 30.8 pg (27.0-33.0); Mean Corpuscular Volume 95.9 fL (80-95); Mean Platelet Volume 10.5 fL (8.0-11.0); Monocytes % 4.6; Platelet Count 323 x1000/uL (130-400); RBC 4.35 m/cumm (4.50-6.00); RBC Distribution Width 14.9 % (11.8-14.1)
[2019-07-12] MEDS: Mometasone 220 MCG 14 DOSE INHALER 1 PUFF IH ×2 (07:43→20:46)
[2019-07-12 07:49] LABS: Anion Gap 8.8 mmol/L (3-11); BUN 22 mg/dL (7-18); CO2 30.2 mmol/L (21.0-32.0); CREATININE 1.06 mg/dL (0.70-1.30); Chloride 105 mmol/L (98-107); Glucose 138 mg/dL (70-100); Magnesium 2.3 mg/dL (1.8-2.4); Potassium 4.1 mmol/L (3.5-5.1); Sodium 144 mmol/L (136-145)
--- NOTE | 2019-07-12 08:17 | CMPROGNOTE_ITS ---
- If Service Date Differs Date of service: 07/12/19 Time of Service: 08:17 Care Management Progress Note S/O:Kennedy was sitting up in bed when CM met with him. He was pleasant and engaged readily in conversation. Kennedy stated that he is a little discouraged because he is still not feeling well. He states he longs to be home working in his garden or golfing. He did share that he had a nice pizza green party in his room for his 's birthday yesterday. He stated it was great to have the family together. Kennedy also talked a bit about the fact that one of his home medications was missed on admission and that he did not receive it until Friday. It was a prescription for Bactrim which he takes 3 times a week for PCP prophylaxis. He was clear that he was not looking to blame anyone, he just hoped that we would be able to prevent it from happening again. A: 64 year old male admitted to [facility] 07/06/19 with Pneumonia P: Neil will discharge home when ready per MD. CM agreed to support Neil and RT in exploring payer source for Pulmonary Rehab post discharge as needed-MD to complete referral form. Neil will follow up with his Child Custody Evaluator; [place]. Kendra Faulk[place] [facility] [place] as well-CM to fax DC summary. He will discuss possibility of acquiring portable oxygen during his Child Custody Evaluator follow up. Neil will transport via private vehicle with his , Agata.
[2019-07-12 08:31] LABS: Absolute Basophil Count 0.03 k/cumm (0.0-0.2); Absolute Neutrophil Count 23.91 k/cumm (1.2-6.7); White Blood Cell Count 26.28 k/cumm (4.4-10.8)
[2019-07-12 08:32] LABS: Diff Comment Agrees w/ Instrument; RBC Morphology Normal
[2019-07-12 08:42] LABS: Procalcitonin 0.7 ng/mL
[2019-07-12] MEDS: dilTIAZem CD 120 MG CAPCR PO ×2 (08:49→20:45)
[2019-07-12] MEDS: Sertraline 50 MG TAB 150 MG PO (08:49)
[2019-07-12] MEDS: Folic Acid 1 MG TAB PO (08:49)
[2019-07-12] MEDS: predniSONE 20 MG TAB PO (08:51)
[2019-07-12] MEDS: Metoprolol CR 50 MG TABCR 100 MG PO (08:51)
[2019-07-12] MEDS: Apixaban 5 MG TAB PO ×2 (08:52→20:45)
[2019-07-12] MEDS: Pantoprazole 40 MG TABCR PO (08:52)
[2019-07-12] MEDS: Digoxin 0.25 MG TAB 0.125 MG PO (08:52)
[2019-07-12] MEDS: DOXYCYCLINE 100 MG in Normal Saline 100 ML IVPB ×2 (12:15→22:05)
--- NOTE | 2019-07-12 15:24 | CHAPLAIN ---
Neil was sitting up in a chair dressed. When I say him on Friday (07/09) he thought he would be discharged that day. He said he is frustrated but understands why he's hasn't been discharged. Dr. Padilla is attempting to speak with his specialist at [facility], and that's not an easy feat, Neil said. Neil had planned a birthday republican for is on Friday and ended up moving it to his room here. He said it was difficult to accept the disappointment of not being able to host the republican at home and the credited Yara Short RN, with helping him deal with the circumstances. He added that he took is frustrations out on staff, but later apologized.
--- NOTE | 2019-07-12 16:28 | PGE_ITS ---
Date of Service Date of service: 07/12/19 Time of Service: 16:28 Assessment and Plan (1) Acute and chronic respiratory failure with hypoxia: Current visit: Yes Status: Acute Multifactorial - due to acute exacerbation of COPD, ?PNA, exacerbation of IPF. Will continue high dose steroids for 3 days, continue broad spectrum abx; trial humidified heated high flow. If no improvement in 3 days, transfer to a tertiary care facility. (2) Acute exacerbation of chronic obstructive pulmonary disease (COPD): Current visit: No Status: Acute Continue cefepime, vancomycin, doxycycline, steroids, humidified heated high flow. (3) Pneumonia: Current visit: Yes Status: Suspected As above. (4) Pulmonary fibrosis: Current visit: No Status: Chronic In acute exacerbation. Steroid dependent. As above (5) Atrial fibrillation with controlled ventricular rate: Current visit: No Status: Chronic Continue eliquis. Continue metoprolol, cardizem and digoxin. (6) Hypokalemia: Current visit: Yes Status: Acute Resolved (7) Discharge planning issues: Current visit: No Status: Acute He is a FULL CODE. Patient continues to require inpatient hospitalization. May need transfer to a tertiary care facility. (8) DVT prophylaxis: Current visit: No Status: Acute On therapeutic eliquis. Subjective Interval history since last seen: Mr Worthington states he is not any better. Denies chest pain, continues to report shortness of breath, dizziness when ambulating/when taking a shower today. Denies n/v. He again desaturated today - down to 70's, he states on 10 L while taking a shower. Case was discussed with [facility] pul[place]ology on the phone - images were reviewed. It was felt that the patient likely has an exacerbation of his IPF rather than an actual acute pneumonia, and PJP is not suspected. However, we did talk about elevated procalcitonin. The patient was recommended to get at least 100 mg of methylprednisolone daily for the next 3 days, be kept on broad spectrum abx, and a trial of humidified heated high flow nasal cannula. If in 3 days there is no improvement, the patient was recommended to be transferred to a tertiary care facility. I discussed this plan with Mr Worthington - he verbalized understanding. Exam Narrative Exam Narrative: General: very pleasant, anxious middle-aged male, sitting in a chair, mildly tachypneic HEENT: EOMI, MMM Heart: RRR, no m/r/g Lungs: Good air entry B, no wheezing or crackles heard today GI: abdomen is soft, nontender, nondistended Extremities: trace edema at the ankles B, no c/c. Objective Objective Clinical Data: Abnormal lab results 07/12/19 07/12/19 Range/Units 06:33 06:33 WBC 26.28 H* D (4.4-10.8) k/cumm RBC 4.35 L (4.50-6.00) m/cumm Hgb 13.4 L (13.5-17.5) g/dL MCV 95.9 H (80-95) fL RDW 14.9 H (11.8-14.1) % Absolute Neutrophils 23.91 H (1.2-6.7) k/cumm Absolute Lymphocytes 0.92 L (1.2-3.4) k/cumm Absolute Monocytes 1.21 H (0.11-0.7) k/cumm BUN 22 H D (7-18) mg/dL Glucose 138 H (70-100) mg/dL Vital Signs Temperature 36.6 C 07/12/19 15:35 Temperature Source Tympanic 07/12/19 15:35 Pulse 75 07/12/19 15:35 Pulse Rhythm Irregular 07/12/19 15:49 Pulse 68 07/06/19 19:00 Respiratory Rate 18 07/12/19 15:35 Respiratory Effort Non-Labored 07/12/19 15:49 Respiratory Depth Normal 07/12/19 15:49 Respiratory Pattern Normal 07/12/19 15:49 Blood Pressure 109/68 07/12/19 15:35 Blood Pressure Mean 84 07/06/19 18:46 Blood Pressure Position Sitting 07/06/19 15:31 Pulse Oximetry 96 07/12/19 16:09 Oxygen Delivery Method Hi Flow System 07/12/19 16:09 Oxygen Flow Rate 40 07/12/19 16:09 Fraction of Inspired Oxygen (FIO2) 36 07/12/19 16:09 Pain Level 0 07/12/19 15:35 Comment 07/06/19 19:50 Intake & Output 07/11/19 07/12/19 07/12/19 23:59 11:59 23:59 Intake Total 950 / 1340 910 / 1500 590 / 1500 Output Total 300 / 300 Balance 950 / 665 610 / 1200 590 / 1200 Weight 111.7 kg Intake: IV 470 / 680 550 / 900 350 / 900 Oral 480 / 660 360 / 600 240 / 600 Output: Urine 300 / 300 Other: Urine Color Yellow Urine Appearance Clear Clear Clear Stool Size Moderate Stool Characteristics Soft Voiding Methods Toilet Toilet Laboratory Results WBC 26.28 k/cumm (4.4-10.8) H* D 07/12/19 06:33 RBC 4.35 m/cumm (4.50-6.00) L 07/12/19 06:33 Hgb 13.4 g/dL (13.5-17.5) L 07/12/19 06:33 Hct 41.7 % (40.0-50.0) 07/12/19 06:33 MCV 95.9 fL (80-95) H 07/12/19 06:33 MCH 30.8 pg (27.0-33.0) 07/12/19 06:33 MCHC 32.1 g/dL (32.0-36.0) 07/12/19 06:33 RDW 14.9 % (11.8-14.1) H 07/12/19 06:33 Plt Count 323 x1000/uL (130-400) 07/12/19 06:33 MPV 10.5 fL (8.0-11.0) 07/12/19 06:33 Immature Gran % 0.8 07/12/19 06:33 91.0 07/12/19 06:33 3.5 07/12/19 06:33 4.6 07/12/19 06:33 0.0 07/12/19 06:33 0.1 07/12/19 06:33 Absolute Neutrophils 23.91 k/cumm (1.2-6.7) H 07/12/19 06:33 Absolute Lymphocytes 0.92 k/cumm (1.2-3.4) L 07/12/19 06:33 Absolute Monocytes 1.21 k/cumm (0.11-0.7) H 07/12/19 06:33 Absolute Eosinophils 0.00 k/cumm (0.0-0.7) 07/12/19 06:33 Absolute Basophils 0.03 k/cumm (0.0-0.2) 07/12/19 06:33 Agrees w/ instrument 07/12/19 06:33 RBC Morphology Normal 07/12/19 06:33 Sodium 144 mmol/L (136-145) 07/12/19 06:33 Potassium 4.1 mmol/L (3.5-5.1) 07/12/19 06:33 Chloride 105 mmol/L (98-107) 07/12/19 06:33 Carbon Dioxide 30.2 mmol/L (21.0-32.0) 07/12/19 06:33 8.8 mmol/L (3-11) 07/12/19 06:33 BUN 22 mg/dL (7-18) H D 07/12/19 06:33 1.06 mg/dL (0.70-1.30) 07/12/19 06:33 >= 60.00 (mL/min/1.73m2) 07/12/19 06:33 Glucose 138 mg/dL (70-100) H 07/12/19 06:33 Calcium 9.0 mg/dL (8.5-10.1) 07/12/19 06:33 Magnesium 2.3 mg/dL (1.8-2.4) 07/12/19 06:33 1.3 mg/dL (0.2-1.0) H 07/06/19 16:05 AST 12 U/L (15-37) L 07/06/19 16:05 ALT 24 U/L (12-78) 07/06/19 16:05 74 U/L (46-116) 07/06/19 16:05 < 0.05 ng/mL (0.00-0.06) 07/06/19 16:05 NT-Pro-B Natriuret Pep 1321 pg/mL (-299) H 07/06/19 16:05 7.3 g/dL (6.4-8.2) 07/06/19 16:05 3.6 g/dL (3.4-5.0) 07/06/19 16:05 0.7 ng/mL 07/12/19 06:33 Yellow (Yellow) 07/08/19 13:35 Turbid (Clear) 07/08/19 13:35 6.0 (5-8) 07/08/19 13:35 Ur Specific [place] >= 1.030 (1.005-1.025) H 07/08/19 13:35 30 mg/dL (Negative) H 07/08/19 13:35 15 mg/dL (Negative) H 07/08/19 13:35 Trace-lysed (Negative) H 07/08/19 13:35 Negative (Negative) 07/08/19 13:35 Negative (Negative) 07/08/19 13:35 0.2 EU/dL (Up TO 0.2) 07/08/19 13:35 Ur Leukocyte Esterase Negative (Negative) 07/08/19 13:35 Negative (0-2) 07/08/19 13:35 Negative HPF (0-5) 07/08/19 13:35 Ur Epithelial Cells Negative HPF (Negative) 07/08/19 13:35 Many amorphous HPF (Negative) 07/08/19 13:35 HPF (Negative) 07/08/19 13:35 Negative LPF (Negative) 07/08/19 13:35 Negative (Negative) 07/08/19 13:35 Ur Culture Indicated? No 07/08/19 13:35 Negative mg/dL (Negative) 07/08/19 13:35 Vancomycin Trough Cancelled 07/12/19 17:00 Digoxin 0.95 ng/mL (0.90-2.00) 07/07/19 16:20 CT chest without contrast: Findings consistent with acute right sided multifocal pneumonia superimposed on diffuse emphysematous changes.
[2019-07-12 17:06] LABS: Vancomycin, Trough 20.3 ug/mL (10.0-20.0)
[2019-07-12] MEDS: diphenhydrAMINE 25 MG CAP 50 MG PO (22:03)
[2019-07-12] MEDS: Normal Saline 500 ML 30 ML IV (22:04)
[2019-07-13] VITALS (10 sets, daily range): BP systolic 106–137; BP diastolic 61–84; PULSE 70–94; RESP 1–21; TEMP 31–36.9; O2SAT 92–98
[2019-07-13] MEDS: Albuterol/Ipratropium 3 ML UPD VIAL UPD ×3 (06:21→17:42)
[2019-07-13 06:51] LABS: Abs Immature Grans 0.16 k/cumm (0.0-0.09); Absolute Neutrophil Count 20.64 k/cumm (1.2-6.7); HCT 39.3 % (40.0-50.0); HGB 12.5 g/dL (13.5-17.5); Immature Grans % 0.7; Lymphocytes % 2.8; Mean Corp. HGB Concentration 31.8 g/dL (32.0-36.0); Mean Corpuscular Hemoglobin 30.5 pg (27.0-33.0); Mean Corpuscular Volume 95.9 fL (80-95); Mean Platelet Volume 10.3 fL (8.0-11.0); Monocytes % 4.2; Neutrophils % 92.3; Platelet Count 290 x1000/uL (130-400); RBC Distribution Width 15.2 % (11.8-14.1); White Blood Cell Count 22.36 k/cumm (4.4-10.8)
[2019-07-13 07:12] LABS: Anion Gap 8.9 mmol/L (3-11); BUN 22 mg/dL (7-18); CO2 28.1 mmol/L (21.0-32.0); Calcium 8.4 mg/dL (8.5-10.1); Chloride 105 mmol/L (98-107); Glucose 142 mg/dL (70-100); Magnesium 2.2 mg/dL (1.8-2.4); Potassium 3.5 mmol/L (3.5-5.1); Sodium 142 mmol/L (136-145)
[2019-07-13] MEDS: Hyaluronidase 150 UNITS VIAL IJ (07:39)
[2019-07-13] MEDS: methylPREDNISolone SUCC 125 MG VIAL 60 MG IVP ×2 (07:40→17:42)
[2019-07-13 08:02] LABS: Absolute Lymphocyte Count 0.63 k/cumm (1.2-3.4); Absolute Monocyte Count 0.94 k/cumm (0.11-0.7)
[2019-07-13] MEDS: Mometasone 220 MCG 14 DOSE INHALER 1 PUFF IH ×2 (08:02→20:41)
--- NOTE | 2019-07-13 08:13 | PDOC.CMPRO ---
- If Service Date Differs Date of service: 07/13/19 Time of Service: 08:13 Care Management Progress Note S/O:Kennedy was sitting up in bed during CM visit. He stated that he is still not feeling well. He stated that Dr. Padilla has told him that if he does not improve in the next 24 hours that he may be transferred to [facility]. A discussion was held regarding options for insurance. Kennedy's current insurance does not cover most of what he needs for respiratory equipment and services. Kennedy shared that he and his are looking at Medicare supplement plans and intend to switch companies during open enrollment. Lily from [facility] was successful in working with a DME provider who will accept Kennedy's insurance so there may be an opportunity to obtain a Trilogy at discharge. A: 64 year old male admitted to [facility] 07/06/19 with Pneumonia P: Neil will discharge home when ready per MD. CM agreed to support Neil and RT in exploring payer source for Pulmonary Rehab post discharge as needed-MD to complete referral form. Neil will follow up with his Marine Equipment Design Engineer; Dr. Kendra Faulkner at [facility] after discharge as well-CM to fax DC summary. He will discuss possibility of acquiring portable oxygen during his Marine Equipment Design Engineer follow up. Neil will transport via private vehicle with his , Agata.
[2019-07-13 08:17] LABS: Diff Comment Agrees w/ Instrument; RBC Morphology Normal
[2019-07-13] MEDS: CEFEPIME 2 GM in Normal Saline 100 ML IVPB ×3 (08:27→23:34)
[2019-07-13] MEDS: Digoxin 0.25 MG TAB 0.125 MG PO (08:27)
[2019-07-13] MEDS: predniSONE 20 MG TAB PO (08:29)
[2019-07-13] MEDS: Sertraline 50 MG TAB 150 MG PO (08:29)
[2019-07-13] MEDS: Apixaban 5 MG TAB PO ×2 (08:29→20:41)
[2019-07-13] MEDS: Metoprolol CR 50 MG TABCR 100 MG PO (08:30)
[2019-07-13] MEDS: Pantoprazole 40 MG TABCR PO (08:30)
[2019-07-13] MEDS: Folic Acid 1 MG TAB PO (08:31)
[2019-07-13] MEDS: Normal Saline Flush 10 ML SYR IVP ×5 (08:31→20:41)
[2019-07-13] MEDS: dilTIAZem CD 120 MG CAPCR PO ×2 (09:17→20:40)
[2019-07-13] MEDS: Sulfameth/Trimeth DS TAB PO (10:34)
[2019-07-13] MEDS: DOXYCYCLINE 100 MG in Normal Saline 100 ML IVPB ×2 (10:35→22:16)
[2019-07-13 12:08] LABS: Procalcitonin 0.6 ng/mL
--- NOTE | 2019-07-13 19:10 | PGE_ITS ---
Date of Service Date of service: 07/13/19 Time of Service: 19:10 Subjective Interval history since last seen: Encounter for billing. Objective Objective Clinical Data: Abnormal lab results 07/13/19 07/13/19 Range/Units 06:15 06:15 WBC 22.36 H (4.4-10.8) k/cumm RBC 4.10 L (4.50-6.00) m/cumm Hgb 12.5 L (13.5-17.5) g/dL Hct 39.3 L (40.0-50.0) % MCV 95.9 H (80-95) fL MCHC 31.8 L (32.0-36.0) g/dL RDW 15.2 H (11.8-14.1) % Absolute Neutrophils 20.64 H (1.2-6.7) k/cumm Absolute Lymphocytes 0.63 L (1.2-3.4) k/cumm Absolute Monocytes 0.94 H (0.11-0.7) k/cumm BUN 22 H (7-18) mg/dL Glucose 142 H (70-100) mg/dL Calcium 8.4 L (8.5-10.1) mg/dL Vital Signs Temperature 36.2 C L 07/13/19 15:13 Temperature Source Temporal Artery Scan 07/13/19 15:13 Pulse 71 07/13/19 15:13 Pulse Rhythm Irregular 07/13/19 15:42 Pulse 68 07/06/19 19:00 Respiratory Rate 18 07/13/19 15:13 Respiratory Effort Non-Labored 07/13/19 15:42 Respiratory Depth Normal 07/13/19 15:42 Respiratory Pattern Normal 07/13/19 15:42 Blood Pressure 110/61 07/13/19 15:13 Blood Pressure Mean 84 07/06/19 18:46 Blood Pressure Position Sitting 07/06/19 15:31 Pulse Oximetry 94 L 07/13/19 15:13 Oxygen Delivery Method Hi Flow System 07/13/19 16:59 Oxygen Flow Rate 40 07/13/19 16:59 Fraction of Inspired Oxygen (FIO2) 36 07/13/19 16:59 Pain Level 0 07/13/19 15:13 Comment 07/06/19 19:50 Intake & Output 07/12/19 07/13/19 07/13/19 23:59 11:59 23:59 Intake Total 940 / 1850 1418 / 2350.783 932.783 / 2350.783 Output Total 175 / 175 Balance 940 / 1550 1243 / 2175.783 932.783 / 2175.783 Weight 112.35 kg Intake: IV 460 / 1010 628 / 1080.783 452.783 / 1080.783 Oral 480 / 840 790 / 1270 480 / 1270 Output: Urine 175 / 175 Other: Urine Color Pale Yellow Urine Appearance Clear Clear Clear Urine Odor None Voiding Methods Toilet Laboratory Results WBC 22.36 k/cumm (4.4-10.8) H 07/13/19 06:15 RBC 4.10 m/cumm (4.50-6.00) L 07/13/19 06:15 Hgb 12.5 g/dL (13.5-17.5) L 07/13/19 06:15 Hct 39.3 % (40.0-50.0) L 07/13/19 06:15 MCV 95.9 fL (80-95) H 07/13/19 06:15 MCH 30.5 pg (27.0-33.0) 07/13/19 06:15 MCHC 31.8 g/dL (32.0-36.0) L 07/13/19 06:15 RDW 15.2 % (11.8-14.1) H 07/13/19 06:15 Plt Count 290 x1000/uL (130-400) 07/13/19 06:15 MPV 10.3 fL (8.0-11.0) 07/13/19 06:15 Immature Gran % 0.7 07/13/19 06:15 92.3 07/13/19 06:15 2.8 07/13/19 06:15 4.2 07/13/19 06:15 0.0 07/13/19 06:15 0.0 07/13/19 06:15 Absolute Neutrophils 20.64 k/cumm (1.2-6.7) H 07/13/19 06:15 Absolute Lymphocytes 0.63 k/cumm (1.2-3.4) L 07/13/19 06:15 Absolute Monocytes 0.94 k/cumm (0.11-0.7) H 07/13/19 06:15 Absolute Eosinophils 0.00 k/cumm (0.0-0.7) 07/13/19 06:15 Absolute Basophils 0.00 k/cumm (0.0-0.2) 07/13/19 06:15 Agrees w/ instrument 07/13/19 06:15 RBC Morphology Normal 07/13/19 06:15 Sodium 142 mmol/L (136-145) 07/13/19 06:15 Potassium 3.5 mmol/L (3.5-5.1) 07/13/19 06:15 Chloride 105 mmol/L (98-107) 07/13/19 06:15 Carbon Dioxide 28.1 mmol/L (21.0-32.0) 07/13/19 06:15 8.9 mmol/L (3-11) 07/13/19 06:15 BUN 22 mg/dL (7-18) H 07/13/19 06:15 1.20 mg/dL (0.70-1.30) 07/13/19 06:15 >= 60.00 (mL/min/1.73m2) 07/13/19 06:15 Glucose 142 mg/dL (70-100) H 07/13/19 06:15 Calcium 8.4 mg/dL (8.5-10.1) L 07/13/19 06:15 Magnesium 2.2 mg/dL (1.8-2.4) 07/13/19 06:15 1.3 mg/dL (0.2-1.0) H 07/06/19 16:05 AST 12 U/L (15-37) L 07/06/19 16:05 ALT 24 U/L (12-78) 07/06/19 16:05 74 U/L (46-116) 07/06/19 16:05 < 0.05 ng/mL (0.00-0.06) 07/06/19 16:05 NT-Pro-B Natriuret Pep 1321 pg/mL (-299) H 07/06/19 16:05 7.3 g/dL (6.4-8.2) 07/06/19 16:05 3.6 g/dL (3.4-5.0) 07/06/19 16:05 0.6 ng/mL 07/13/19 06:15 Yellow (Yellow) 07/08/19 13:35 Turbid (Clear) 07/08/19 13:35 6.0 (5-8) 07/08/19 13:35 Ur Specific [place] >= 1.030 (1.005-1.025) H 07/08/19 13:35 30 mg/dL (Negative) H 07/08/19 13:35 15 mg/dL (Negative) H 07/08/19 13:35 Trace-lysed (Negative) H 07/08/19 13:35 Negative (Negative) 07/08/19 13:35 Negative (Negative) 07/08/19 13:35 0.2 EU/dL (Up TO 0.2) 07/08/19 13:35 Ur Leukocyte Esterase Negative (Negative) 07/08/19 13:35 Negative (0-2) 07/08/19 13:35 Negative HPF (0-5) 07/08/19 13:35 Ur Epithelial Cells Negative HPF (Negative) 07/08/19 13:35 Many amorphous HPF (Negative) 07/08/19 13:35 HPF (Negative) 07/08/19 13:35 Negative LPF (Negative) 07/08/19 13:35 Negative (Negative) 07/08/19 13:35 Ur Culture Indicated? No 07/08/19 13:35 Negative mg/dL (Negative) 07/08/19 13:35 Vancomycin Trough Cancelled 07/12/19 17:00 Digoxin 0.95 ng/mL (0.90-2.00) 07/07/19 16:20
[2019-07-13] MEDS: Nystatin 500000 UNITS/5 ML SUSP 5ML CUP PO (22:17)
[2019-07-13] MEDS: diphenhydrAMINE 25 MG CAP 50 MG PO (22:17)
[2019-07-13] MEDS: Normal Saline 500 ML 30 ML IV (22:18)
[2019-07-14] VITALS (17 sets, daily range): BP systolic 131–171; BP diastolic 75–99; PULSE 70–100; RESP 1–38; TEMP 31–37.2; O2SAT 77–94
[2019-07-14] MEDS: Albuterol/Ipratropium 3 ML UPD VIAL UPD ×4 (00:21→18:29)
--- NOTE | 2019-07-14 03:25 | NUR.NOTE ---
Nursing Note: Patient reports concern for sputum sample. Sputum specimen ordered per patient request. Awaiting results. Patient appears to be confused about medical information provided. Patient reports he was told a sputum sample was needed, but there was no record of a sputum order recorded in patient chart.
[2019-07-14] MEDS: Nystatin 500000 UNITS/5 ML SUSP 5ML CUP PO ×4 (06:19→18:25)
[2019-07-14] MEDS: methylPREDNISolone SUCC 125 MG VIAL 60 MG IVP ×2 (06:23→18:25)
[2019-07-14] MEDS: Normal Saline Flush 10 ML SYR IVP ×4 (06:27→20:27)
[2019-07-14 07:29] LABS: Abs Immature Grans 0.43 k/cumm (0.0-0.09); HCT 41.5 % (40.0-50.0); HGB 13.3 g/dL (13.5-17.5); Immature Grans % 1.7; Lymphocytes % 2.5; Mean Corpuscular Hemoglobin 30.5 pg (27.0-33.0); Mean Corpuscular Volume 95.2 fL (80-95); Mean Platelet Volume 10.2 fL (8.0-11.0); Monocytes % 8.6; Neutrophils % 87.2; Platelet Count 330 x1000/uL (130-400); RBC 4.36 m/cumm (4.50-6.00); RBC Distribution Width 15.1 % (11.8-14.1); White Blood Cell Count 24.71 k/cumm (4.4-10.8)
[2019-07-14 07:31] LABS: Absolute Lymphocyte Count 0.62 k/cumm (1.2-3.4); Absolute Monocyte Count 2.13 k/cumm (0.11-0.7); Absolute Neutrophil Count 21.55 k/cumm (1.2-6.7)
[2019-07-14 07:46] LABS: Anion Gap 10.6 mmol/L (3-11); BUN 23 mg/dL (7-18); CO2 26.4 mmol/L (21.0-32.0); CREATININE 1.21 mg/dL (0.70-1.30); Calcium 8.7 mg/dL (8.5-10.1); Chloride 106 mmol/L (98-107); Glucose 143 mg/dL (70-100); Magnesium 2.3 mg/dL (1.8-2.4); Potassium 3.3 mmol/L (3.5-5.1); Sodium 143 mmol/L (136-145)
[2019-07-14 08:02] LABS: Diff Comment Agrees w/ Instrument; Polychromasia Present
[2019-07-14] MEDS: Mometasone 220 MCG 14 DOSE INHALER 1 PUFF IH ×2 (08:21→20:29)
[2019-07-14 08:25] LABS: Procalcitonin 0.5 ng/mL
[2019-07-14] MEDS: Sertraline 50 MG TAB 150 MG PO (08:30)
[2019-07-14] MEDS: CEFEPIME 2 GM in Normal Saline 100 ML IVPB ×3 (08:31→23:57)
[2019-07-14] MEDS: Digoxin 0.25 MG TAB 0.125 MG PO (08:31)
[2019-07-14] MEDS: Metoprolol CR 50 MG TABCR 100 MG PO (08:31)
[2019-07-14] MEDS: predniSONE 20 MG TAB PO (08:32)
[2019-07-14] MEDS: Folic Acid 1 MG TAB PO (08:32)
[2019-07-14] MEDS: Pantoprazole 40 MG TABCR PO (08:32)
[2019-07-14] MEDS: Apixaban 5 MG TAB PO ×2 (08:32→20:29)
[2019-07-14] MEDS: dilTIAZem CD 120 MG CAPCR PO ×2 (08:32→20:30)
[2019-07-14 09:37] LABS: Vancomycin, Trough 22.2 ug/mL (10.0-20.0)
[2019-07-14] MEDS: DOXYCYCLINE 100 MG in Normal Saline 100 ML IVPB ×2 (09:58→22:26)
--- NOTE | 2019-07-14 11:34 | NUR.NOTE ---
Pts IV access lost, several attempts to place IV has been made. So IV Abx are delayed slightly until we obtain IV access. Nursing Note:
[2019-07-14] MEDS: Potassium Chloride Liquid 20 MEQ PKT 40 MEQ PO (13:04)
--- NOTE | 2019-07-14 13:04 | W.PM.PROGNOT ---
Date of Service Date of service: 07/14/19 Time of Service: 13:04 Assessment and Plan (1) Acute and chronic respiratory failure with hypoxia: Current visit: Yes Status: Acute etiology of acute axerbation is unclear, IPF vs PNA, PE unlikely as he is anticoagulated. I have discussed with [facility] pulmonology as well as hospitalist service, they recommended we continue at least one more day of high dose steroids, along with antibiotics at which point need for transfer could be re visited (2) Atrial fibrillation with controlled ventricular rate: Current visit: No Status: Chronic rate controlled, remains on apixiban (3) Pulmonary fibrosis: Current visit: No Status: Chronic cont IV solumedrol, and HFNC (4) Pneumonia: Current visit: Yes Status: Suspected unclear whethere this is a true bacterial pneumonia, his antibiotic regimen has been changed and he is now on day 4-5 of broad spectrum abx Subjective Interval history since last seen: NAD overnight, patient remains on HFNC. he is continues to have desaturations to the 70s with ambulation. this am does not feel significantly improved. Exam Narrative Exam Narrative: GEN: NAD, non toxic appearing, sitting up in chair HEENT: NCAT CV: irregularly irregular, nl s1 and s2 LUNG: CTAB with fine crackles in the bases ABD: soft, NT, ND EXT: symmetrical no edema Objective Objective Clinical Data: Abnormal lab results 07/14/19 07/14/19 07/14/19 Range/Units 07:05 07:05 09:05 WBC 24.71 H (4.4-10.8) k/cumm RBC 4.36 L (4.50-6.00) m/cumm Hgb 13.3 L (13.5-17.5) g/dL MCV 95.2 H (80-95) fL RDW 15.1 H (11.8-14.1) % Absolute Neutrophils 21.55 H (1.2-6.7) k/cumm Absolute Lymphocytes 0.62 L (1.2-3.4) k/cumm Absolute Monocytes 2.13 H (0.11-0.7) k/cumm Potassium 3.3 L (3.5-5.1) mmol/L BUN 23 H (7-18) mg/dL Glucose 143 H (70-100) mg/dL Vancomycin Trough 22.2 H* (10.0-20.0) ug/mL Vital Signs Temperature 36.8 C 07/14/19 07:38 Temperature Source Tympanic 07/14/19 07:38 Pulse 79 07/14/19 12:58 Pulse Rhythm Irregular 07/14/19 07:31 Pulse 68 07/06/19 19:00 Respiratory Rate 22 07/14/19 12:58 Respiratory Effort Incrsd Work of Breathing 07/14/19 07:31 Respiratory Depth Normal 07/14/19 07:31 Respiratory Pattern Normal 07/14/19 07:31 Blood Pressure 134/75 07/14/19 07:38 Blood Pressure Mean 84 07/06/19 18:46 Blood Pressure Position Sitting 07/06/19 15:31 Pulse Oximetry 94 L 07/14/19 12:58 Oxygen Delivery Method Hi Flow System 07/14/19 12:55 Oxygen Flow Rate 40 07/14/19 12:55 Fraction of Inspired Oxygen (FIO2) 37 07/14/19 12:55 Pain Level 0 07/14/19 07:38 Comment 07/06/19 19:50 Intake & Output 07/13/19 07/14/19 07/14/19 23:59 11:59 23:59 Intake Total 1042.783 / 2460.783 880.5 / 880.5 Output Total 200 / 200 Balance 1042.783 / 2285.783 680.5 / 680.5 Weight 112.7 kg Intake: IV 562.783 / 1190.783 630.5 / 630.5 Oral 480 / 1270 250 / 250 Output: Urine 200 / 200 Other: Urine Color Yellow Urine Appearance Clear Clear Comment independantly Voiding Methods Toilet Laboratory Results WBC 24.71 k/cumm (4.4-10.8) H 07/14/19 07:05 RBC 4.36 m/cumm (4.50-6.00) L 07/14/19 07:05 Hgb 13.3 g/dL (13.5-17.5) L 07/14/19 07:05 Hct 41.5 % (40.0-50.0) 07/14/19 07:05 MCV 95.2 fL (80-95) H 07/14/19 07:05 MCH 30.5 pg (27.0-33.0) 07/14/19 07:05 MCHC 32.0 g/dL (32.0-36.0) 07/14/19 07:05 RDW 15.1 % (11.8-14.1) H 07/14/19 07:05 Plt Count 330 x1000/uL (130-400) 07/14/19 07:05 MPV 10.2 fL (8.0-11.0) 07/14/19 07:05 Immature Gran % 1.7 07/14/19 07:05 87.2 07/14/19 07:05 2.5 07/14/19 07:05 8.6 07/14/19 07:05 0.0 07/14/19 07:05 0.0 07/14/19 07:05 Absolute Neutrophils 21.55 k/cumm (1.2-6.7) H 07/14/19 07:05 Absolute Lymphocytes 0.62 k/cumm (1.2-3.4) L 07/14/19 07:05 Absolute Monocytes 2.13 k/cumm (0.11-0.7) H 07/14/19 07:05 Absolute Eosinophils 0.00 k/cumm (0.0-0.7) 07/14/19 07:05 Absolute Basophils 0.00 k/cumm (0.0-0.2) 07/14/19 07:05 Agrees w/ instrument 07/14/19 07:05 RBC Morphology See below 07/14/19 07:05 Present 07/14/19 07:05 Sodium 143 mmol/L (136-145) 07/14/19 07:05 Potassium 3.3 mmol/L (3.5-5.1) L 07/14/19 07:05 Chloride 106 mmol/L (98-107) 07/14/19 07:05 Carbon Dioxide 26.4 mmol/L (21.0-32.0) 07/14/19 07:05 10.6 mmol/L (3-11) 07/14/19 07:05 BUN 23 mg/dL (7-18) H 07/14/19 07:05 1.21 mg/dL (0.70-1.30) 07/14/19 07:05 60.00 (mL/min/1.73m2) 07/14/19 07:05 Glucose 143 mg/dL (70-100) H 07/14/19 07:05 Calcium 8.7 mg/dL (8.5-10.1) 07/14/19 07:05 Magnesium 2.3 mg/dL (1.8-2.4) 07/14/19 07:05 1.3 mg/dL (0.2-1.0) H 07/06/19 16:05 AST 12 U/L (15-37) L 07/06/19 16:05 ALT 24 U/L (12-78) 07/06/19 16:05 74 U/L (46-116) 07/06/19 16:05 < 0.05 ng/mL (0.00-0.06) 07/06/19 16:05 NT-Pro-B Natriuret Pep 1321 pg/mL (-299) H 07/06/19 16:05 7.3 g/dL (6.4-8.2) 07/06/19 16:05 3.6 g/dL (3.4-5.0) 07/06/19 16:05 0.5 ng/mL 07/14/19 07:05 Yellow (Yellow) 07/08/19 13:35 Turbid (Clear) 07/08/19 13:35 6.0 (5-8) 07/08/19 13:35 Ur Specific [place] >= 1.030 (1.005-1.025) H 07/08/19 13:35 30 mg/dL (Negative) H 07/08/19 13:35 15 mg/dL (Negative) H 07/08/19 13:35 Trace-lysed (Negative) H 07/08/19 13:35 Negative (Negative) 07/08/19 13:35 Negative (Negative) 07/08/19 13:35 0.2 EU/dL (Up TO 0.2) 07/08/19 13:35 Ur Leukocyte Esterase Negative (Negative) 07/08/19 13:35 Negative (0-2) 07/08/19 13:35 Negative HPF (0-5) 07/08/19 13:35 Ur Epithelial Cells Negative HPF (Negative) 07/08/19 13:35 Many amorphous HPF (Negative) 07/08/19 13:35 HPF (Negative) 07/08/19 13:35 Negative LPF (Negative) 07/08/19 13:35 Negative (Negative) 07/08/19 13:35 Ur Culture Indicated? No 07/08/19 13:35 Negative mg/dL (Negative) 07/08/19 13:35 Vancomycin Trough 22.2 ug/mL (10.0-20.0) H* 07/14/19 09:05 Digoxin 0.95 ng/mL (0.90-2.00) 07/07/19 16:20
--- NOTE | 2019-07-14 13:48 | NUR.NOTE ---
Pt reported changes in vision over the last 36-48 hours. Pt states it looks like the end of the bed is covered in black dog hair. Pt states vision changes come and go and that the spells resolve in less than 5 minutes. After discussion with pt, these vision changes coincide with activity and O2 desaturation. Pt states changes are more pronounced when objects are backlit. O2 saturation at this time is 83% on highflow approx 2 mins after return from toilet. Charge nurse notified. RT notified.
--- NOTE | 2019-07-14 17:48 | CMPROGNOTE_ITS ---
- If Service Date Differs Date of service: 07/14/19 Time of Service: 17:48 Care Management Progress Note /O:Kennedy was sitting up in bed during CM visit. He stated that he feels worse today than he has at any time since his admission. He admitted that he is getting a little scared. He said even the high flow respiratory equipment is not helping as much as it did a couple of days ago. Kennedy stated that the doctor told him that he would remain at [facility] at least until tomorrow when Randy Chavez will return and resume his care. A: 64 year old male admitted to [facility] 07/06/19 with Pneumonia P: Neil will discharge home when ready per MD. agreed to support Neil and RT in exploring payer source for Pulmonary Rehab post discharge as needed-MD to complete referral form. Neil will follow up with his Appeals Representative; Dr. Kendra Faulkner at [facility] after discharge as well-CM to fax DC summary. He will discuss possibility of acquiring portable oxygen during his Appeals Representative follow up. Neil will transport via private vehicle with his , Agata.
--- NOTE | 2019-07-14 18:55 | NUR.NOTE ---
after patients evening neb tx, patient expectorated up a small amount of blood
--- NOTE | 2019-07-14 20:12 | DI.RAD_ITS ---
SYMPTOM/DIAGNOSIS: DYSPNEA, HEMOPTYSIS PORTABLE AP CHEST: 07/14 Examination is compared with most recent PA chest film of 07/09/19. Chronic fibrotic changes again noted bilaterally. Increasing right sided superimposed radiodensities consistent with right sided pneumonia. Question slight interval increase in left pulmonary markings as well although the findings may be due to differences in technique. CONCLUSION: Findings suggesting worsening pneumonia. Other etiologies including superimposed mild CHF or ARDS not excluded.
[2019-07-14] MEDS: MORPHine 2 MG/ML SYR IVP ×2 (20:24→22:26)
--- NOTE | 2019-07-14 20:43 | DI.VRAD_ITS ---
EXAM: XR Chest, 1 View EXAM DATE/TIME: 07/14/2019 19:44 CLINICAL HISTORY: 64 years old, male; Dyspnea and other: Hemoptysis TECHNIQUE: Imaging protocol: XR of the chest, 1 view. COMPARISON: CR XR CHEST 2V PA LATERAL 07/09/2019 13:31 FINDINGS: Lungs: Slight worsening of right greater than left airspace and interstitial opacities. Suspected mild underlying vascular congestion similar to the previous study. Pleural space: No gross pneumothorax, apices excluded somewhat. Trace effusions are possible, minimally blunted costophrenic angles. Heart/Mediastinum: No significant cardiomegaly for position and projection. Bones/joints: Chronic healed left clavicular deformity less well seen compared to the previous study. No displaced fracture. IMPRESSION: 1. Slight worsening of right greater than left airspace and interstitial opacities. Question multifocal pneumonia, edema and/or ARDS. 2. Suspected mild underlying vascular congestion similar to the previous study. Additional findings appear stable. Dictated and Authenticated by: Demetrice Parrish MD. Ordering:[facility] Kiel Bower MD
[2019-07-14] MEDS: diphenhydrAMINE 25 MG CAP 50 MG PO (22:27)
--- NOTE | 2019-07-14 22:42 | PGE_ITS ---
Date of Service Date of service: 07/14/19 Time of Service: 21:00 Assessment and Plan (1) Acute and chronic respiratory failure with hypoxia: Current visit: Yes Status: Acute acute pneumonitis superimposed on fibrotic NSIP. Patient has not responded to high dose iv CS and broad spectrum antibiotics (cefepime, vancomycin, and doxycycline as well as his TMP/SMX prophylaxis for PJP. Patient now w/ hemoptysis and worsening right sided infiltrates and worsening hypoxemia requiring NIPPV for support. I discussed w/ Mr. Wotrhington (and Mrs Worthington via telephone) the fact that he is getting worse and if unable to stabilize on BIPAP then he may need to be intubated tonight. He is a full code by his wishes. He indicated that if need be, he is willing for intubation and mechanical ventilation for short term but does not want to be on parts counterman life support. His affirmed this is her understanding of his wishes. I also informed him that I had contacted [facility] [place] and they have accepted him pending bed availabiltity. I also relayed this to Mrs. Worthington. At present we do not have any available ICU beds and I am unable to move anyone out to the floor. At present Mr. Worthington's respirations have responded to the BIPAP and as long as he is at rest he seems stable and his oxygenation is adequate (92-95%) w/ RR in the high 20's. (2) Pulmonary fibrosis: Current visit: No Status: Chronic Apparently his biopsy last spring showed fibrotic NSIP and he was tried on Cellcept with severe side effects according to Dr. Kendra Faulkner, his production team manager at [facility]. He was suppose to start on azathioprine 50 mg daily after undergoing TPMT testing but he has not started this. Lung transplant has not been discussed according to the patient. Subjective Patient reports: shortness of breath and other (hemoptysis) Interval history since last seen: 64 yr old male w/ hx of fibrotic NSIP felt to be d/t chronic use of dronedarone for chronic afib, admitted 07/06/2019 w/ worsening dyspnea, and cough and found to have new right sided infiltrates superimposed on underlying fibrosis. He never had a fever but had a mild leukocytosis of 14,000 on admission (while on OP prednisone) and has been treated w/ his TMP/SMX for PCP prophylaxis and has since been treated w/ broad spectrum antibiotics including doxycycline, cefepime and vancomycin and high dose corticosteroids without improvement. Dr. Padilla spoke w/ pulmonary at [facility] on 07/12/2019 (Dr. Jamie Johnson) who felt that the patient was suffering from an IIP flare and recommended HFNC and high dose corticosteroids (100 mg solumedr ol) x 3 days and to continue broad spectrum ATB x 10 day and after 3d of solumedrol resume prednisone at 40 mg daily and if no improvement after 3 day then consider transfer to [facility]. Today, Dr. Contreras, day hospitalist at [facility], spoke w/ Dr. Dr. Rafy Ventura, who flet that he would be appropriate for transfer to [facility] for higher level care to [facility] step down bed for dedicated pulmonary consult. However, Dr. Contreras spoke w/ [facility] hospitalist and apparently no beds were available earlier today. Tonight, Mr. Worthington has desaturated multiple times while getting up to bedside commode down into the SPO2 60's% while on HFNC at 12 Lpm. He also had an episode of bright red hemoptysis mixed w/ spit less than a teaspoon. He gets very tachypneic in the 40's w/ any activity and it took a while for his oxygen s aturation to return to low 80's% on HFNC. I have since had RT come in to place him on BIPAP which seems to have calmed his RR down to the high 20's to low 30's and his SPO2 to 92-95%. I repeated his CXR tonight and by my interpretation there is worsening densities over the RLL. I have spoken w/ the transfer center at [facility] and then spoke w/ Dr. Perez Carpenter, [facility] fellow and Dr. Goyal, critical care attending, and they have accepted the patient to the service of Dr. Torrez. I have appraised them of his current conditions including his underlying afib and chronic apixaban use as well as his current treatment for his pneumonitis. I previously asked [facility] radiology to push his current hospitalization films (CXR, CT chest) to [facility] radiology for their review. Exam Const General: cooperative, acute distress moderate, anxious and combative Nutritional Appearance: overweight Orientation: alert, awake and oriented x3 Resp Effort & Inspection: respiratory distress, tachypneic and uses accessory muscles Auscultation: crackles bilaterally throughout Cardio Jugular venous pressure: no JVD Palpation: normal PMI Rate: tachycardic Rhythm: abnormal rhythm irregularly irregular Pulses: normal peripheral pulses Extrem General: no pedal edema Objective Objective Clinical Data: Abnormal lab results 07/14/19 07/14/19 07/14/19 Range/Units 07:05 07:05 09:05 WBC 24.71 H (4.4-10.8) k/cumm RBC 4.36 L (4.50-6.00) m/cumm Hgb 13.3 L (13.5-17.5) g/dL MCV 95.2 H (80-95) fL RDW 15.1 H (11.8-14.1) % Absolute Neutrophils 21.55 H (1.2-6.7) k/cumm Absolute Lymphocytes 0.62 L (1.2-3.4) k/cumm Absolute Monocytes 2.13 H (0.11-0.7) k/cumm Potassium 3.3 L (3.5-5.1) mmol/L BUN 23 H (7-18) mg/dL Glucose 143 H (70-100) mg/dL Vancomycin Trough 22.2 H* (10.0-20.0) ug/mL Vital Signs Temperature 37.2 C 07/14/19 20:23 Temperature Source Tympanic 07/14/19 20:23 Pulse 85 07/14/19 21:13 Pulse Rhythm Irregular 07/14/19 20:32 Pulse 68 07/06/19 19:00 Respiratory Rate 36 H 07/14/19 21:13 Respiratory Effort 07/14/19 20:32 Respiratory Depth Shallow 07/14/19 20:32 Respiratory Pattern Tachypnea 07/14/19 20:32 Blood Pressure 171/99 H 07/14/19 20:23 Blood Pressure Mean 84 07/06/19 18:46 Blood Pressure Position Sitting 07/06/19 15:31 Pulse Oximetry 93 L 07/14/19 21:13 Oxygen Delivery Method Hi Flow Nasal Cannula 07/14/19 20:23 Oxygen Flow Rate 0 07/14/19 20:23 Fraction of Inspired Oxygen (FIO2) 40 07/14/19 21:13 Pain Level 0 07/14/19 07:38 Comment 07/06/19 19:50 Intake & Output 07/13/19 07/14/19 07/14/19 23:59 11:59 23:59 Intake Total 1042.783 / 2460.783 980.5 / 1330.5 350 / 1330.5 Output Total 200 / 200 Balance 1042.783 / 2285.783 780.5 / 1130.5 350 / 1130.5 Weight 112.7 kg Intake: IV 562.783 / 1190.783 730.5 / 1080.5 350 / 1080.5 Oral 480 / 1270 250 / 250 Output: Urine 200 / 200 Other: Urine Color Yellow Urine Appearance Clear Clear Clear Comment independantly Voiding Methods Toilet Laboratory Results WBC 24.71 k/cumm (4.4-10.8) H 07/14/19 07:05 RBC 4.36 m/cumm (4.50-6.00) L 07/14/19 07:05 Hgb 13.3 g/dL (13.5-17.5) L 07/14/19 07:05 Hct 41.5 % (40.0-50.0) 07/14/19 07:05 MCV 95.2 fL (80-95) H 07/14/19 07:05 MCH 30.5 pg (27.0-33.0) 07/14/19 07:05 MCHC 32.0 g/dL (32.0-36.0) 07/14/19 07:05 RDW 15.1 % (11.8-14.1) H 07/14/19 07:05 Plt Count 330 x1000/uL (130-400) 07/14/19 07:05 MPV 10.2 fL (8.0-11.0) 07/14/19 07:05 Immature Gran % 1.7 07/14/19 07:05 87.2 07/14/19 07:05 2.5 07/14/19 07:05 8.6 07/14/19 07:05 0.0 07/14/19 07:05 0.0 07/14/19 07:05 Absolute Neutrophils 21.55 k/cumm (1.2-6.7) H 07/14/19 07:05 Absolute Lymphocytes 0.62 k/cumm (1.2-3.4) L 07/14/19 07:05 Absolute Monocytes 2.13 k/cumm (0.11-0.7) H 07/14/19 07:05 Absolute Eosinophils 0.00 k/cumm (0.0-0.7) 07/14/19 07:05 Absolute Basophils 0.00 k/cumm (0.0-0.2) 07/14/19 07:05 Agrees w/ instrument 07/14/19 07:05 RBC Morphology See below 07/14/19 07:05 Present 07/14/19 07:05 Sodium 143 mmol/L (136-145) 07/14/19 07:05 Potassium 3.3 mmol/L (3.5-5.1) L 07/14/19 07:05 Chloride 106 mmol/L (98-107) 07/14/19 07:05 Carbon Dioxide 26.4 mmol/L (21.0-32.0) 07/14/19 07:05 10.6 mmol/L (3-11) 07/14/19 07:05 BUN 23 mg/dL (7-18) H 07/14/19 07:05 1.21 mg/dL (0.70-1.30) 07/14/19 07:05 60.00 (mL/min/1.73m2) 07/14/19 07:05 Glucose 143 mg/dL (70-100) H 07/14/19 07:05 Calcium 8.7 mg/dL (8.5-10.1) 07/14/19 07:05 Magnesium 2.3 mg/dL (1.8-2.4) 07/14/19 07:05 1.3 mg/dL (0.2-1.0) H 07/06/19 16:05 AST 12 U/L (15-37) L 07/06/19 16:05 ALT 24 U/L (12-78) 07/06/19 16:05 74 U/L (46-116) 07/06/19 16:05 < 0.05 ng/mL (0.00-0.06) 07/06/19 16:05 NT-Pro-B Natriuret Pep 1321 pg/mL (-299) H 07/06/19 16:05 7.3 g/dL (6.4-8.2) 07/06/19 16:05 3.6 g/dL (3.4-5.0) 07/06/19 16:05 0.5 ng/mL 07/14/19 07:05 Yellow (Yellow) 07/08/19 13:35 Turbid (Clear) 07/08/19 13:35 6.0 (5-8) 07/08/19 13:35 Ur Specific [place] >= 1.030 (1.005-1.025) H 07/08/19 13:35 30 mg/dL (Negative) H 07/08/19 13:35 15 mg/dL (Negative) H 07/08/19 13:35 Trace-lysed (Negative) H 07/08/19 13:35 Negative (Negative) 07/08/19 13:35 Negative (Negative) 07/08/19 13:35 0.2 EU/dL (Up TO 0.2) 07/08/19 13:35 Ur Leukocyte Esterase Negative (Negative) 07/08/19 13:35 Negative (0-2) 07/08/19 13:35 Negative HPF (0-5) 07/08/19 13:35 Ur Epithelial Cells Negative HPF (Negative) 07/08/19 13:35 Many amorphous HPF (Negative) 07/08/19 13:35 HPF (Negative) 07/08/19 13:35 Negative LPF (Negative) 07/08/19 13:35 Negative (Negative) 07/08/19 13:35 Ur Culture Indicated? No 07/08/19 13:35 Negative mg/dL (Negative) 07/08/19 13:35 Vancomycin Trough 22.2 ug/mL (10.0-20.0) H* 07/14/19 09:05 Digoxin 0.95 ng/mL (0.90-2.00) 07/07/19 16:20 Objective Narrative Objective Narrative: COMPARISON: CR XR CHEST 2V PA LATERAL 07/09/2019 13:31 FINDINGS: Lungs: Slight worsening of right greater than left airspace and interstitial opacities. Suspected mild underlying vascular congestion similar to the previous study. Pleural space: No gross pneumothorax, apices excluded somewhat. Trace effusions are possible, minimally blunted costophrenic angles. Heart/Mediastinum: No significant cardiomegaly for position and projection. Bones/joints: Chronic healed left clavicular deformity less well seen compared to the previous study. No displaced fracture. IMPRESSION: 1. Slight worsening of right greater than left airspace and interstitial opacities. Question multifocal pneumonia, edema and/or ARDS. 2. Suspected mild underlying vascular congestion similar to the previous study. Additional findings appear stable. Dictated and Authenticated by: Demetrice Parrish MD.
[2019-07-14 22:55] LABS: BE (Venous) 2.9 mmol/L (-3-3); HCO3 (Venous) 27 mmol/L (22-28); O2 Sat (Venous) 96 % (70-80); TCO2 (Venous) 24 mmol/L (22-29); pCO2 (Venous) 39 mm/Hg (34-47); pH (Venous) 7.45 (7.32-7.43); pO2 (Venous) 83 mm/Hg (28-44)
--- NOTE | 2019-07-14 23:53 | DSE_ITS ---
DS: Diagnosis Discharge Diagnosis (1) Acute and chronic respiratory failure with hypoxia: Status: Acute Asessment and Plan: Patient was treated for acute exacerbation of ILD and pneumonitis w/ broad spectrum antibiotics (Vancomycin, Cefepime, Doxycycline along w/ his usual TMP/SMX for PJP prophylaxis) and high dose iv corticosteroids and prednisone. Multiple CXR and noncontrast CT scan of the chest were performed demonstrating worsening right sided multifocal pneumonia superimposed on diffuse emphysema and pulmonary fibrosis. Multiple sputum samples were sent and cultures grew mixed oral margarita. He never had a fever his entire hospitalization. He presented w/ a mild leukocytosis of 14,000 while on oral prednisone and his leukocytosis worsened to a peak of 26,000 while on high dose solumedrol. His oxygen requirements worsened to the point that he needed NIPPV w/ BIPAP on the night of his discharge d/t frequent severe hypoxemia w/ any activity. On the night of his transfer to [facility] he had a single episode of hemoptysis of less than 1 tsp (patient has chronically been on Apixaban for chronic afib). Because of his need for high flow NIPPV and the lack of MICU space at [facility] and the need for higher (tertiary pulmonary and [facility] care), he was transferred to [facility] to the service of Dr. Sathya Torrez. Accepting physician was Dr. Deluca. (2) Pulmonary fibrosis: Status: Chronic Asessment and Plan: worsening and patient has failed Cellcept. He currently was scheduled to begin Azathioprine pending TPMT tesing. However in light of his worsening hypoxemia and hemoptysis, the patient will likely need repeat bronchoscopy and protected BAL to rule out fungal pneumonitis or worsing of his NSIP. (3) Acute pneumonitis: Status: Acute Asessment and Plan: transfer to [facility] for pulmonary workup as listed above (4) Atrial fibrillation with controlled ventricular rate: Status: Chronic Asessment and Plan: rate control has not been an issue and he has had no chest pain or palpitations. He is currently on digoxin and cardizem and Toprol XL. He is anticoagulated w/ apixaban which will need to be held for bronchosc opy. Last dose was at 20:29 tonight. Discharge Plan Disposition Patient Disposition: [facility] Condition: Serious Discharge Details Chief Complaint: SOB Clinical Impression: Pneumonia Reason For Visit: PNEUMONIA Admit Date/Time: 07/06/19 18:37 Admit Provider: José Miguel Gardner Attending Provider: José Miguel Gardner Primary Care Provider: Radha Tobar [facility] Course: 64 yr old male w/ chronic afib and fibrotic nonspecific interstitial pneumonia believed to have been caused from chronic dronedarone use. He has failed to tolerate Cell cept in the past and was scheduled to begin azathioprine. He presented to [facility] on 07/06/2019 w/ 2 week hx of worsening dyspnea, initially [place] now occurring at rest, and nonproductive cough. He presented w/ new right sided infiltrates and mild leukocytosis of 14,000 but no fevers (he had been on prednisone 20 mg daily as outpatient and home oxygen at 4 Lpm. During this hospitalization he has been treated w/ high dose iv corticosteroids and broad spectrum antibiotics (Cefepime, Vancomycin, Doxycycline and his usual TMP/SMX for PJP prophylaxis). Despite this treatment his oxygen requirements have increased and despite being on HFNC for past three days he has had oxygen desaturations w/ any little activity (going from bed to bedside commode) dropping into the 60's%. Tonight he had an episode of hemoptysis (less than 1 tsp) and couple of acute hyoxemia episodes necessitating initiation of NIPPV w/ BIPAP 10/5 cm @ 40% FIO2. Repeat CXR tonight demonstrates worsening infiltrates on the right. I spoke w/ Dr. Perez Carpenter and Dr. Abiodun Deluca who have accepted the patient to the serivce of Dr. [facility]. Home Meds and New Rx's Prescriptions: No Action sumatriptan succinate [Imitrex] 50 MG tablet 50 mg PO PRN RF: 0 diphenhydramine HCl [Benadryl] 25 MG capsule 50 mg PO HS RF: 0 pantoprazole 40 MG tablet,delayed release (DR/EC) 40 mg PO DAILY RF: 0 sertraline 100 MG tablet 150 mg PO QAM RF: 0 folic acid 1 MG tablet 1 mg PO DAILY Qty: 30 RF: 1 Eliquis 5 MG tablet 5 mg PO BID Qty: 60 RF: 1 metoprolol succinate 50 mg Tablet Extended Release 24 Hr 50 mg PO BID Qty: 60 RF: 0 prednisone 20 mg Tablet 40 mg PO DAILY Qty: 16 RF: 0 Asmanex Twisthaler 220 mcg (14 doses) Aerosol Powdr Breath Activated 1 inh Inhalation BID Qty: 1 RF: 0 albuterol sulfate [ProAir HFA] 90 mcg/actuation Hfa Aerosol Inhaler 2 puff INHALATION QID PRNRF: 0 diltiazem HCl [Cardizem CD] 120 mg Capsule,Extended Release 24hr 120 mg PO BID RF: 0 digoxin 125 mcg Tablet 250 mcg PO DAILY RF: 0 ipratropium-albuterol 0.5 mg-3 mg(2.5 mg base)/3 mL Solution For Nebulization 3 ml INHALATION QID RF: 0 azathioprine 50 mg Tablet 50 mg PO DAILY RF: 0 sulfamethoxazole-trimethoprim [Bactrim DS] 800-160 mg Tablet See Rx Instructions .ROUTE .COMPLEX RF: 0 Discharge Instructions Instructions: Pulmonary Fibrosis (DC), Chronic Respiratory Failure (DC) Additional Instructions: Your medications will be reconciled upon discharge from [facility] and further follow up appointments will be set at that time Stand Alone Forms: Nursing Discharge Form Referrals: Radha Tobar MD [Primary Care Provider] - 07/26/19 9:10 am Activity:: bedrest Diet:: As Tolerated Discharge Orders Discharge Orders: Discharge Order (Routine); Ordered 07/14/19 Ordered By: Sathish Dyson Exam Const General: cooperative and no acute distress (patient is now calm and respirations are unlabored on BIPAP) Nutritional Appearance: overweight Orientation: alert, awake and oriented x3 Resp Effort & Inspection: able to speak in complete sentences Auscultation: crackles bilaterally throughout Cardio Jugular venous pressure: no JVD Palpation: normal PMI Rate: regular rate Rhythm: abnormal rhythm irregularly irregular Pulses: normal peripheral pulses Extrem General: no pedal edema Psych Appearance: grossly normal and well kempt Mental Status: mental status grossly normal Speech and Movement: speech clear Mood: congruent mood Affect: normal affect Attitude: cooperative Thought Process: normal Thought Content: normal Insight: insight good Judgment: judgment good DS: Data Vitals/I&O Vitals and I&O: Vital Signs Temperature 37.2 C 07/14/19 20:23 Temperature Source Tympanic 07/14/19 20:23 Pulse 72 07/14/19 23:03 Pulse Rhythm Irregular 07/14/19 20:32 Pulse 68 07/06/19 19:00 Respiratory Rate 27 H 07/14/19 23:03 Respiratory Effort 07/14/19 20:32 Respiratory Depth Shallow 07/14/19 20:32 Respiratory Pattern Tachypnea 07/14/19 20:32 Blood Pressure 171/99 H 07/14/19 20:23 Blood Pressure Mean 84 07/06/19 18:46 Blood Pressure Position Sitting 07/06/19 15:31 Pulse Oximetry 91 L 07/14/19 23:03 Oxygen Delivery Method Hi Flow Nasal Cannula 07/14/19 20:23 Oxygen Flow Rate 67 07/14/19 23:03 Fraction of Inspired Oxygen (FIO2) 40 07/14/19 23:03 Pain Level 0 07/14/19 07:38 Comment 07/06/19 19:50 Intake & Output 07/13/19 07/14/19 07/14/19 23:59 11:59 23:59 Intake Total 1042.783 / 2460.783 980.5 / 1570.5 590 / 1570.5 Output Total 200 / 200 Balance 1042.783 / 2285.783 780.5 / 1370.5 590 / 1370.5 Weight 112.7 kg Intake: IV 562.783 / 1190.783 730.5 / 1080.5 350 / 1080.5 Oral 480 / 1270 250 / 490 240 / 490 Output: Urine 200 / 200 Other: Urine Color Yellow Urine Appearance Clear Clear Clear Comment independantly Voiding Methods Toilet Labs on day of discharge: Labs from last 24 hours 07/14/19 07/14/19 07/14/19 22:50 09:05 07:05 WBC 24.71 H RBC 4.36 L Hgb 13.3 L Hct 41.5 MCV 95.2 H MCH 30.5 MCHC 32.0 RDW 15.1 H Plt Count 330 MPV 10.2 Immature Gran % 1.7 Neutrophils % 87.2 Lymphocytes % 2.5 Monocytes % 8.6 Eosinophils % 0.0 Basophils % 0.0 Absolute Neutrophils 21.55 H Absolute Lymphocytes 0.62 L Absolute Monocytes 2.13 H Absolute Eosinophils 0.00 Absolute Basophils 0.00 Differential Comment Agrees w/ instrument RBC Morphology See below Polychromasia Present VBG pH 7.45 H VBG pCO2 39 VBG pO2 83 H VBG HCO3 27 VBG Total CO2 24 VBG O2 Saturation 96 H VBG Base Excess 2.9 Sodium Potassium Chloride Carbon Dioxide Anion Gap BUN Creatinine Estimated GFR/1.73 m2 Glucose Calcium Magnesium Procalcitonin Vancomycin Trough 22.2 H* 07/14/19 07/14/19 07:05 07:05 WBC RBC Hgb Hct MCV MCH MCHC RDW Plt Count MPV Immature Gran % Neutrophils % Lymphocytes % Monocytes % Eosinophils % Basophils % Absolute Neutrophils Absolute Lymphocytes Absolute Monocytes Absolute Eosinophils Absolute Basophils Differential Comment RBC Morphology Polychromasia VBG pH VBG pCO2 VBG pO2 VBG HCO3 VBG Total CO2 VBG O2 Saturation VBG Base Excess Sodium 143 Potassium 3.3 L Chloride 106 Carbon Dioxide 26.4 Anion Gap 10.6 BUN 23 H Creatinine 1.21 Estimated GFR/1.73 m2 60.00 Glucose 143 H Calcium 8.7 Magnesium 2.3 Procalcitonin 0.5 Vancomycin Trough 07/14/19 06:30 Sputum - Expectorated Sputum Culture - Pending Preliminary micro results at discharge 07/14/19 06:30 Sputum Culture - Pending Sputum - Expectorated [facility] Medical History Atrial fibrillation (Chronic) COPD (chronic obstructive pulmonary disease) (Chronic) GERD (Chronic) HTN (hypertension) (Chronic) IRRITABLE BOWEL (Chronic) Microscopic colitis (Chronic) Migraine (Chronic) Pulmonary fibrosis (Chronic) 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 Sister No problems noted. Social History Smoking/Tobacco Use Status: Former Tobacco Use Alcohol Intake: never Drug use: Never Substance use type: does not use Do you feel safe at home: Yes Do you feel safe in your relationship?: Yes
--- NOTE | 2019-07-15 00:52 | NUR.NOTE ---
Nursing Note: At approximately 1930, patient rang call long reporting he was coughing up blood. Lungs sounds were course throughout, patient was short of breath with increase work of breathing with SAO2 at 82% while on high flow nasal cannula. JONG Montano was notified, then notified MD. Patient was ordered morphine and and was administered to the patient. Stat portable chest XRay was ordered. Patient stated he was feeling slightly better, but continued become more short of breath again. MD and respiratory came in and put patient on Bi-Pap. Patient tolerated this well but continued to desat with exersion. Patient was then transferred to [facility].
== END 2019-07-15 00:15 | disposition short-term general hospital (02) | DRG 189 ==
LOC: ER 19:04 → MS 19:33
PROVIDERS: Internal Medicine; Nurse Practitioner; Admitting Provider General Practice; Emergency Provider Physician Assistant; PCP Family Medicine; Visit Provider Internal Medicine
DX: J96.21 Acute and chronic respiratory failure with hypoxia (principal); J18.1 Lobar pneumonia, unspecified organism; R04.2 Hemoptysis; J44.1 Chronic obstructive pulmonary disease with (acute) exacerbation; J84.10 Pulmonary fibrosis, unspecified; I48.2 Chronic atrial fibrillation; Z79.01 Long term (current) use of anticoagulants; T46.2X5A Adverse effect of other antidysrhythmic drugs, initial encounter; E87.6 Hypokalemia; Z99.81 Dependence on supplemental oxygen; Z79.52 Long term (current) use of systemic steroids
CPT/HCPCS: 36415; 71250; 80048; 80053; 82805; 84145; 93005; 94618; 94640; 96365; 96366; 96368; 99222; 99232; 99285; 99292; 99356; 71045; 71046; 80162; 80202; 81003; 81015; 83735; 83880; 84484; 85025; 87070; 87205; 93010; 94660; 99291; J0456; J0696; J1956; J2270; J2930; J3370; J3470; J3480; J7512; J7620